=== PATIENT | male | born 1960 | race Caucasian/White ===

== ENCOUNTER → 2020-02-12 15:25 | Outpatient (BNVA) | payer BC, SELFPAY | PROVIDERS: Visit Provider Dermatology | DX: D48.9 Neoplasm of uncertain behavior, unspecified (principal) | CPT/HCPCS: 88304 ==

== ENCOUNTER 2020-03-19 08:25 | Outpatient (CLI) | payer BC, SELFPAY ==
--- NOTE | 2020-03-19 08:45 | USCV_ITS ---
Costa Trujillo Age: 59 Gender: M : 1960 Exam Date: 03/19/2020 08:54 Ordering Phys: Robert Atkinson M.D ([email or web address]) Technologist: Kathy Watts [place] [facility] [place]: STENOSIS Risk Factors: Previous Vascular Surgery: Right Brachial BP: / Left Brachial BP: / Right Left Velocity (cm/s) Spectral Plaque Velocity (cm/s) Spectral Plaque Syst/Diast Broadening Syst/Diast Broadening 78.30/ 17.60 Prox CCA 38.70 / 11.50 81.60/ 22.10 Mid CCA 59.20 / 21.10 66.80/ 15.50 Distal CCA 46.50 / 16.30 25.40/ 10.90 Prox ICA 29.60 / 12.10 49.50/ 20.50 Mid ICA 37.50 / 13.90 55.00/ 23.00 Distal ICA 70.30 / 30.90 91.80 ECA 64.70 0.67 ICA/CCA 1.19 Antegrade Vertebral Antegrade 31.40/ 10.90 cm/s 33.90/ 13.30 cm/s Tri Subclavian Tri 62.80 89.00 CONCLUSIONS Right ICA stenosis <50%. Left ICA stenosis <50%. Normal antegrade Doppler flow noted in the right vertebral artery. Normal antegrade Doppler flow noted in the left vertebral artery. Benigno Ramirez MD (Electronically Signed) Final Date: 19 March 2020 16:49 S
== END 2020-03-19 08:26 | disposition home or self-care (01) ==
LOC: US 08:31
PROVIDERS: Visit Provider Internal Medicine
DX: I65.23 Occlusion and stenosis of bilateral carotid arteries (principal)
CPT/HCPCS: 93880

== ENCOUNTER → 2020-04-29 14:42 | Outpatient (BNVA) | payer OTHER, SELFPAY | PROVIDERS: Visit Provider Family Medicine | DX: I10 Essential (primary) hypertension (principal); R35.1 Nocturia | CPT/HCPCS: 80053; 80061; 82043; 84153; 85025 ==

== ENCOUNTER 2020-08-27 23:06 | Emergency (ER) | payer OTHER, SELFPAY ==
[2020-08-27 23:09] VITALS: BP 157/103; PULSE 67; RESP 18; TEMP 36.6; O2SAT 97; BMI 42.0
--- NOTE | 2020-08-27 23:20 | XRR_ITS ---
PROCEDURE INFORMATION: Exam: XR Chest Exam date and time: 08/27/2020 11:30 PM Age: 60 years old Clinical indication: Chest pain; Additional info: Cp, left arm numbness, increased blood pressure TECHNIQUE: Imaging protocol: XR of the chest. Views: 1 view. COMPARISON: CR Chest 1 [place] [id number] 02/14/2019 9:28 PM FINDINGS: Lungs: Unremarkable. No consolidation. Pleural spaces: Unremarkable. No pleural effusion. No pneumothorax. Heart/Mediastinum: Unremarkable. No cardiomegaly. Bones/joints: Unremarkable. XR/XR chest 1V portable [id number] IMPRESSION: No acute findings.
--- NOTE | 2020-08-27 23:20 | ECG_ITS ---
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 Measurements Intervals [place] Rate: 67 P: 32 MT: 193 QRS: -34 QRSD: 129 T: -30 QT: 423 QTc: 447 Interpretive Statements SINUS RHYTHM LEFT AXIS DEVIATION [QRS AXIS < -30] POSSIBLE RIGHT VENTRICULAR CONDUCTION DELAY [RSR (QR) IN V1/V2] LEFT VENTRICULAR HYPERTROPHY AND ST-T CHANGE POSSIBLE ANTEROSEPTAL MYOCARDIAL INFARCTION , OF INDETERMINATE AGE Compared to ECG 02/15/2019 03:51:36 Left-axis deviation now present Left ventricular hypertrophy now present ST (T wave) deviation now present Ventricular premature complex(es) no longer present Left anterior fascicular block no longer present Myocardial infarct finding still present Electronically Signed On 08-28-2020 18:23:43 CDT by Dotty Lima M.D. [id number] leah
[2020-08-27 23:33] VITALS: BP 152/97; PULSE 71; RESP 18; O2SAT 97
--- NOTE | 2020-08-27 23:34 | ED_ITS ---
HPI - Chest Pain General: Chief Complaint: Chest Pain Stated Complaint: HTN, L ARM NUMB Time Seen by Provider: 08/27/20 23:16 Source: patient Mode of arrival: ambulatory Limitations: no limitations History of Present Illness: HPI narrative: 60-year-old male has a history of high blood pressure along with history of stents years ago. 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 He is post return to his advisor to command in combat tomorrow and have a heart monitor placed and is going to be set up for a stress test. He states that tonight at 9:00 he had a very short episode of chest pain in his left chest that lasted just for seconds. He states it was sharp. He states he had some numbness to his left arm and high blood pressure since then. He denies any chest pain currently. Denies any worsening improving factors. Denies any shortness of breath. Associated symptoms: Deny abdominal pain, dyspnea, fever(s), nausea or vomiting Review of Systems Const: Denies: fever(s), chills, body aches or change in appetite Eyes: Denies: blurry vision or eye discomfort ENMT: Denies: throat pain or dental pain Card: Reports: chest pain Resp: Denies: dyspnea GI: Denies: abdominal pain, nausea, vomiting or diarrhea : Denies: dysuria Musc: Denies: neck pain or back pain Skin/Breast: Denies: rash Neuro: Denies: headache(s) Psych: Denies: depression Gerardo/Lymph: Denies: easy bruising All/Imm: Denies: urticaria PFS ED PFSH: Medical History (Updated 08/28/20 @ 01:55 by Cynthia Esposito MD) ASHD (arteriosclerotic heart disease) HTN (hypertension) Myocardial infarction Obesity JORGE ALBERTO (obstructive sleep apnea) TIA (transient ischemic attack) Surgical History (Updated 04/29/20 @ 14:21 by Ronna Lopes DO) S/P PTCA (percutaneous transluminal coronary angioplasty) 2018 Family History Father Stroke Brother CAD (coronary artery disease) Social History Smoking and tobacco status: never smoked Alcohol intake: never Physical Exam Const: COMMON NORMALS: no acute distress, patient oriented x3 and healthy appearing HENMT: COMMON NORMALS: normocephalic and atraumatic HEAD & SCALP: normocephalic and atraumatic Eye: COMMON NORMALS: Equal, round and reactive pupils present and EOMs intact bilaterally PUPIL: Yes Equal, round and reactive pupils present Neck/C-Spine: COMMON NORMALS: full ROM and supple Chest: COMMONS NORMALS: normal inspection of the chest and normal palpation of entire chest wall Resp: COMMON NORMALS: normal respiratory effort, No retractions, No use of accessory muscles and clear to auscultation bilaterally AUSCULTATION: clear to auscultation bilaterally Cardio: COMMON NORMALS: regular rate, regular rhythm and No murmurs present (Cardio) RATE: regular rate RHYTHM: regular rhythm GI: COMMON NORMALS: Normal to inspection, nondistended, normoactive bowel sounds present, Soft to palpation, non-tender and no masses PALPATION: Yes Soft to palpation Extremity: COMMON NORMALS: normal to inspection and full ROM Neuro: COMMON NORMALS: patient oriented x3, moves all extremities and no focal motor deficits Psych: COMMON NORMALS: mental status grossly normal, Normal thought process present and cooperative THOUGHT PROCESS: Normal thought process present Skin: COMMON NORMALS: no rashes or lesions noted and no wounds GENERAL SKIN EXAM: no rashes or lesions noted Course Vital Signs: Vital signs: Vital Signs Temperature 97.8 F 08/27/20 23:09 Pulse Rate 70 08/27/20 23:53 Respiratory Rate 13 08/27/20 23:53 Blood Pressure 122/87 08/27/20 23:53 Pulse Oximetry 96 08/27/20 23:53 MDM - Chest Pain MDM Narrative: Medical decision making narrative: Patient presents with chest pain is atypical in nature patient's initial repeat troponins here are negative. EKG shows no acute changes. Patient is to follow-up with the right him in the morning to get his heart monitor as scheduled. He is stable for discharge and return if worsening. He has no signs of acute coronary syndrome or pulmonary [place]. Lab Data: Labs: Lab Results 08/27/20 08/27/20 08/27/20 Range/Units 23:32 23:32 23:32 WBC 8.1 (4.0-10.0) 10^3/ uL RBC 5.79 H (4.1-5.3) 10^6/u L Hgb 16.5 (11.7-16.6) g/dL Hct 51.0 (42.0-52.0) % MCV 88.1 (80-94) fL MCH 28.5 (28.0-34.0) pg MCHC 32.4 (30.0-36.0) g/dL RDW 12.7 (12.1-15.1) % Plt Count 171 (130-400) 10^3/c mm MPV 11.5 H (7.4-10.4) fL Neut % (Auto) 65.6 % Lymph % (Auto) 20.4 % [place] % (Auto) 7.7 % Eos % (Auto) 5.3 % Baso % (Auto) 0.9 % Neut # (Auto) 5.29 (1.8-7.7) 10^3/u L Lymph # (Auto) 1.7 (0.8-4.8) 10^3/u L [place] # (Auto) 0.6 (0.2-0.9) 10^3/u L Eos # (Auto) 0.4 (0.0-0.8) 10^3/u L Baso # (Auto) 0.1 (0.0-0.1) 10^3/u L Nucleated RBC % (a uto) 0 % Nucleated RBCs # 0.0 /100WBC PT 12.60 (12.1-14.9) SECO NDS INR 0.92 (0.8-1.2) Sodium 137 (136-145) mmol/L Potassium 4.4 (3.5-5.1) mmol/L Chloride 106 (98-107) mmol/L Carbon Dioxide 20 L (22-29) mmol/L Anion Gap 15.4 (5-19) BUN 13 (6-20) mg/dL Creatinine 0.8 (0.7-1.2) mg/dL GFR Calculation 99.3 (90-130) mL/min Glucose 103 (65-115) mg/dL Calculated Osmolal ity 284 L (285-295) mOsm/k g Calcium 8.5 (8.5-10.5) mg/dL Total Bilirubin 0.4 (0.15-1.2) mg/dL AST 20 (0-40) U/L ALT 18 (0-41) U/L Alkaline Phosphata se 83 (40-130) IU/L Troponin T Baselin e (0-15) ng/L Troponin T 120 Min tolowa dee-ni' (0-15) ng/L Total Protein 5.9 L (6.6-8.7) g/dL Albumin 4.4 (3.5-5.2) g/dL Globulin 1.5 (1.3-4.6) g/dL 08/27/20 08/28/20 Range/Units 23:32 01:25 WBC (4.0-10.0) 10^3/ uL RBC (4.1-5.3) 10^6/u L Hgb (11.7-16.6) g/dL Hct (42.0-52.0) % MCV (80-94) fL MCH (28.0-34.0) pg MCHC (30.0-36.0) g/dL RDW (12.1-15.1) % Plt Count (130-400) 10^3/c mm MPV (7.4-10.4) fL Neut % (Auto) % Lymph % (Auto) % [place] % (Auto) % Eos % (Auto) % Baso % (Auto) % Neut # (Auto) (1.8-7.7) 10^3/u L Lymph # (Auto) (0.8-4.8) 10^3/u L [place] # (Auto) (0.2-0.9) 10^3/u L Eos # (Auto) (0.0-0.8) 10^3/u L Baso # (Auto) (0.0-0.1) 10^3/u L Nucleated RBC % (a uto) % Nucleated RBCs # /100WBC PT (12.1-14.9) SECO NDS INR (0.8-1.2) Sodium (136-145) mmol/L Potassium (3.5-5.1) mmol/L Chloride (98-107) mmol/L Carbon Dioxide (22-29) mmol/L Anion Gap (5-19) BUN (6-20) mg/dL Creatinine (0.7-1.2) mg/dL GFR Calculation (90-130) mL/min Glucose (65-115) mg/dL Calculated Osmolal ity (285-295) mOsm/k g Calcium (8.5-10.5) mg/dL Total Bilirubin (0.15-1.2) mg/dL AST (0-40) U/L ALT (0-41) U/L Alkaline Phosphata se (40-130) IU/L Troponin T Baselin e 14 (0-15) ng/L Troponin T 120 Min tolowa dee-ni' 13.58 (0-15) ng/L Total Protein (6.6-8.7) g/dL Albumin (3.5-5.2) g/dL Globulin (1.3-4.6) g/dL Imaging Data^: CXR: Attestation: I personally reviewed and interpreted this imaging study as follows: Radiologist's impression: [address] [address] XRay Report Signed Patient: Costa Trujillo Unit #: [id number] : 1960 Age/Sex: 60 / M ADM Date: 08/27/20 Loc: ER Room/Bed: Attending Dr: Ordering Provider/Ordering MD: Cynthia Esposito MD Date of Service: 08/27/20 Procedure(s): XR chest 1V portable [id number] Accession Number(s): [id number] Report Number: [id number] PROCEDURE INFORMATION: Exam: XR Chest Exam date and time: 08/27/2020 11:30 PM Age: 60 years old Clinical indication: Chest pain; Additional info: Cp, left arm numbness, increased blood pressure TECHNIQUE: Imaging protocol: XR of the chest. Views: 1 view. COMPARISON: CR Chest 1 [place] [id number] 02/14/2019 9:28 PM FINDINGS: Lungs: Unremarkable. No consolidation. Pleural spaces: Unremarkable. No pleural effusion. No pneumothorax. Heart/Mediastinum: Unremarkable. No cardiomegaly. Bones/joints: Unremarkable. XR/XR chest 1V portable [id number] IMPRESSION: No acute findings. EKG Data^: EKG 1: Attestation: I personally reviewed and interpreted this EKG as follows: EKG interpretation date: 08/27/20 EKG interpretation time: 23:29 Interpretation: nsr hr [address] or twave abnormalities lad qrs 129 qtc 438 EKG 2: Attestation: I personally reviewed and interpreted this EKG as follows: EKG interpretation date: 08/28/20 EKG interpretation time: 01:40 Interpretation: sinus pepe hr [address] or t wave abnormalities qrs 136 qtc 442 Discharge Plan Discharge Patient Disposition: Home Clinical Impression: Chest pain Qualifiers: Chest pain type: unspecified Qualified Code(s): R07.9 - Chest pain, unspecified Condition: Stable Prescriptions: No Action omega-3 fatty acids [Fish Oil Concentrate] 1,000 mg capsule 1,000 mg PO DAILY RF: 0 lisinopril 10 mg tablet 10 mg PO DAILY 90 Days Qty: 1 RF: 3 nitroglycerin 0.4 mg tablet, sublingual 0.4 mg SUBLINGUAL Q5M PRN (Reason: chest pain) Qty: 25 RF: 3 mupirocin 2 % ointment 1 applic topical BID Qty: 22 RF: 0 aspirin 81 mg tablet,delayed release (DR/EC) 81 mg PO DAILY Qty: 90 RF: 3 clopidogrel 75 mg tablet 75 mg PO DAILY 90 Days Qty: 90 RF: 3 metoprolol tartrate 25 mg tablet 12.5 mg PO BID Qty: 90 RF: 3 simvastatin 20 mg tablet 20 mg PO DAILY 90 Days Qty: 90 RF: 3 Discharge Orders: Discharge ED (Routine); Ordered 08/28/20 Ordered By: Cynthia Esposito Referrals: Ronna Lopes DO [Primary Care Provider] - 1-3 days Discharge Diet: Advance as tolerated Discharge Activity: Resume usual activity Patient Instructions: Chest Pain (ED) Coding Level of Care Code ED Lumber Piler for Chg Fwd Exam Comprehensive
[2020-08-27 23:39] LABS: Basophils # 0.1 10^3/uL (0.0-0.1); Basophils % 0.9 %; Eosinophils # 0.4 10^3/uL (0.0-0.8); Eosinophils % 5.3 %; Hemoglobin 16.5 g/dL (11.7-16.6); Lymphocytes # 1.7 10^3/uL (0.8-4.8); Lymphocytes % 20.4 %; Mean Corpuscular HGB Conc 32.4 g/dL (30.0-36.0); Mean Corpuscular Hemoglobin 28.5 pg (28.0-34.0); Mean Corpuscular Volume 88.1 fL (80-94); Mean Platelet Volume 11.5 fL (7.4-10.4); Monocytes # 0.6 10^3/uL (0.2-0.9); Monocytes % 7.7 %; Neutrophils # 5.29 10^3/uL (1.8-7.7); Neutrophils % 65.6 %; Nucleated Red Blood Cells % 0 %; Platelet Count 171 10^3/cmm (130-400); Red Blood Count 5.79 10^6/uL (4.1-5.3); Red Cell Distribution Width 12.7 % (12.1-15.1); White Blood Count 8.1 10^3/uL (4.0-10.0)
[2020-08-27] MEDS: aspirin 81 mg Chew Tablet 324 MG PO (23:46)
[2020-08-27] MEDS: nitroglycerin 0.4 mg sublingual Tablet SUBLINGUAL (23:47)
[2020-08-27 23:48] VITALS: BP 141/93; PULSE 65; RESP 18; O2SAT 97
--- NOTE | 2020-08-27 23:49 | PC.NURSE ---
Chest pain 2/10 Per physician - give 1 dose nitro 141/93 HR 67
[2020-08-27 23:50] LABS: INR 0.92 (0.8-1.2)
--- NOTE | 2020-08-27 23:50 | PC.NURSE ---
After nitro - chest pain dropped to 0 from 2 on 0/10 scale. Pt states chest hurts now when he pushes on it. Per report, pt has cardiology appt tomorrow for monitor worker. Pt states his heart rate has been dropping into 30's per his home monitor.
[2020-08-27 23:53] VITALS: BP 122/87; PULSE 70; RESP 13; O2SAT 96
[2020-08-27 23:57] LABS: Troponin(5th) Baseline 14 ng/L (0-15)
[2020-08-28 00:01] LABS: Alanine Aminotransferase 18 U/L (0-41); Albumin Level 4.4 g/dL (3.5-5.2); Alkaline Phosphatase 83 IU/L (40-130); Blood Urea Nitrogen 13 mg/dL (6-20); Calcium 8.5 mg/dL (8.5-10.5); Carbon Dioxide 20 mmol/L (22-29); Chloride 106 mmol/L (98-107); Globulin 1.5 g/dL (1.3-4.6); Glomerular Filtration Rate 99.3 mL/min (90-130); Glucose 103 mg/dL (65-115); Osmolality Calculated 284 mOsm/kg (285-295); Sodium 137 mmol/L (136-145); Total Bilirubin 0.4 mg/dL (0.15-1.2); Total Protein 5.9 g/dL (6.6-8.7)
[2020-08-28 00:08] LABS: Anion Gap 15.4 (5-19); Aspartate Amino Transferase 20 U/L (0-40); Potassium 4.4 mmol/L (3.5-5.1)
--- NOTE | 2020-08-28 01:20 | ECG_ITS ---
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 Measurements Intervals [place] Rate: 57 P: 33 MS: 213 QRS: -30 QRSD: 136 T: -47 QT: 447 QTc: 438 Interpretive Statements SINUS BRADYCARDIA WITH FIRST DEGREE AV BLOCK INTRAVENTRICULAR CONDUCTION DELAY [130+ ms QRS DURATION] POSSIBLE ANTEROSEPTAL MYOCARDIAL INFARCTION , OF INDETERMINATE AGE [30 ms Q WAVE IN V1-V4] Compared to ECG 08/27/2020 23:29:55 First degree AV block now present Intraventricular conduction delay now present Sinus rhythm no longer present Left-axis deviation no longer present Left ventricular hypertrophy no longer present ST (T wave) deviation no longer present Myocardial infarct finding still present Electronically Signed On 08-28-2020 18:27:31 CDT by Dotty Lima M.D. [id number] f
[2020-08-28 01:51] LABS: Troponin 5 2HR 13.58 ng/L (0-15)
[2020-08-28 02:00] LABS: Troponin 5 2HR Delta -0.42 ABS# (0-10)
[2020-08-28 02:02] VITALS: BP 134/90; PULSE 60; RESP 18; TEMP 37; O2SAT 98
== END 2020-08-28 02:04 | disposition home or self-care (01) ==
PROVIDERS: Emergency Provider Emergency Medicine; PCP Family Medicine
DX: R07.9 Chest pain, unspecified (principal); Z79.82 Long term (current) use of aspirin; Z79.02 Long term (current) use of antithrombotics/antiplatelets; I10 Essential (primary) hypertension; I25.2 Old myocardial infarction; Z86.73 Personal history of transient ischemic attack (TIA), and cerebral infarction without residual deficits
CPT/HCPCS: 36415; 71045; 80053; 84484; 85025; 85610; 93005; 99284

== ENCOUNTER 2020-08-28 04:37 | Emergency (ER) | payer OTHER, SELFPAY ==
[2020-08-28 04:41] VITALS: BP 165/109; PULSE 69; RESP 18; TEMP 36.8; O2SAT 96; BMI 42.0
[2020-08-28 04:45] VITALS: BP 169/100; PULSE 62; RESP 17; O2SAT 96
--- NOTE | 2020-08-28 04:45 | ECG_ITS ---
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 Measurements Intervals [place] Rate: 67 P: 13 MO: 196 QRS: -34 QRSD: 132 T: -18 QT: 422 QTc: 448 Interpretive Statements SINUS RHYTHM LEFT AXIS DEVIATION [QRS AXIS < -30] INTRAVENTRICULAR CONDUCTION DELAY [130+ ms QRS DURATION] LEFT VENTRICULAR HYPERTROPHY AND ST-T CHANGE POSSIBLE ANTEROSEPTAL MYOCARDIAL INFARCTION , OF INDETERMINATE AGE Compared to ECG 08/28/2020 01:40:53 Left-axis deviation now present Left ventricular hypertrophy now present ST (T wave) deviation now present Sinus bradycardia no longer present First degree AV block no longer present Myocardial infarct finding still present Electronically Signed On 08-28-2020 18:23:15 CDT by Dotty Lima M.D. [id number] leah
--- NOTE | 2020-08-28 04:49 | W.ED.GENADLT ---
HPI - General Adult General: Chief complaint: General Medical Stated complaint: high bp/seen earlier tonight Time Seen by Provider: 08/28/20 04:44 Source: patient Mode of arrival: ambulatory Limitations: no limitations History of Present Illness: HPI narrative: 60-year-old male who was seen here earlier tonight. He had seen earlier for chest pain. He also has a history of hypertension. He states he had high blood pressure at his office visit yesterday and was hypertensive here. He states he went home his hypertension did not improve. States that he felt slightly shaky. Denies any more chest pain. Denies any headache. Denies any weakness. Associated symptoms: Deny chest pain, dyspnea, headache(s), nausea, rash or vomiting Review of Systems Const: Denies: fever(s), chills, body aches or change in appetite Eyes: Denies: blurry vision or eye discomfort ENMT: Denies: throat pain or dental pain Card: Denies: chest pain Resp: Denies: dyspnea GI: Denies: abdominal pain, nausea, vomiting or diarrhea : Denies: dysuria Musc: Denies: neck pain or back pain Skin/Breast: Denies: rash Neuro: Denies: headache(s) Psych: Denies: depression Gerardo/Lymph: Denies: easy bruising All/Imm: Denies: urticaria PFSH ED PFSH: Medical History (Updated 08/28/20 @ 05:34 by Cynthia Esposito MD) ASHD (arteriosclerotic heart disease) HTN (hypertension) Myocardial infarction Obesity JORGE ALBERTO (obstructive sleep apnea) TIA (transient ischemic attack) Surgical History (Updated 04/29/20 @ 14:21 by Ronna Lopes DO) S/P PTCA (percutaneous transluminal coronary angioplasty) 2018 Family History Father Stroke Brother CAD (coronary artery disease) Social History Smoking and tobacco status: never smoked Alcohol intake: never Physical Exam Const: COMMON NORMALS: no acute distress, patient oriented x3 and healthy appearing HENMT: COMMON NORMALS: normocephalic and atraumatic HEAD & SCALP: normocephalic and atraumatic Eye: COMMON NORMALS: Equal, round and reactive pupils present and EOMs intact bilaterally PUPIL: Yes Equal, round and reactive pupils present Neck/C-Spine: COMMON NORMALS: full ROM and supple Chest: COMMONS NORMALS: normal inspection of the chest and normal palpation of entire chest wall Resp: COMMON NORMALS: normal respiratory effort, No retractions, No use of accessory muscles and clear to auscultation bilaterally AUSCULTATION: clear to auscultation bilaterally Cardio: COMMON NORMALS: regular rate, regular rhythm and No murmurs present (Cardio) RATE: regular rate RHYTHM: regular rhythm GI: COMMON NORMALS: Normal to inspection, nondistended, normoactive bowel sounds present, Soft to palpation, non-tender and no masses PALPATION: Yes Soft to palpation Extremity: COMMON NORMALS: normal to inspection and full ROM Neuro: COMMON NORMALS: patient oriented x3, moves all extremities and no focal motor deficits Psych: COMMON NORMALS: mental status grossly normal, Normal thought process present and cooperative THOUGHT PROCESS: Normal thought process present Skin: COMMON NORMALS: no rashes or lesions noted and no wounds GENERAL SKIN EXAM: no rashes or lesions noted Course Vital Signs: Vital signs: Vital Signs Temperature 98.2 F 08/28/20 04:41 Pulse Rate 68 08/28/20 05:29 Respiratory Rate 22 H 08/28/20 05:29 Blood Pressure 193/130 08/28/20 05:29 Pulse Oximetry 96 08/28/20 05:29 MDM - General Adult MDM Narrative: Medical decision making narrative: Patient presents with hypertension likely due to his recent medication adjustments. He had his metoprolol decreased to 12.5. We will increase his lisinopril up to 20 mg daily. His blood pressure here is normal. Lab work here is all normal. He feels improved. Lab Data: Labs: Lab Results 08/28/20 08/28/20 08/28/20 Range/Units 04:50 04:50 04:50 WBC 7.1 (4.0-10.0) 10^3/ uL RBC 5.76 H (4.1-5.3) 10^6/u L Hgb 16.7 H (11.7-16.6) g/dL Hct 50.0 (42.0-52.0) % MCV 86.8 (80-94) fL MCH 29.0 (28.0-34.0) pg MCHC 33.4 (30.0-36.0) g/dL RDW 12.7 (12.1-15.1) % Plt Count 170 (130-400) 10^3/c mm MPV 11.5 H (7.4-10.4) fL Neut % (Auto) 65.8 % Lymph % (Auto) 19.9 % [place] % (Auto) 8.3 % Eos % (Auto) 4.9 % Baso % (Auto) 0.8 % Neut # (Auto) 4.65 (1.8-7.7) 10^3/u L Lymph # (Auto) 1.4 (0.8-4.8) 10^3/u L [place] # (Auto) 0.6 (0.2-0.9) 10^3/u L Eos # (Auto) 0.4 (0.0-0.8) 10^3/u L Baso # (Auto) 0.1 (0.0-0.1) 10^3/u L Nucleated RBC % (a uto) 0 % Nucleated RBCs # 0.0 /100WBC Sodium 139 (136-145) mmol/L Potassium 4.0 (3.5-5.1) mmol/L Chloride 108 H (98-107) mmol/L Carbon Dioxide 21 L (22-29) mmol/L Anion Gap 14.0 (5-19) BUN 11 (6-20) mg/dL Creatinine 0.8 (0.7-1.2) mg/dL GFR Calculation 99.3 (90-130) mL/min Glucose 104 (65-115) mg/dL Calculated Osmolal ity 288 (285-295) mOsm/k g Calcium 8.3 L (8.5-10.5) mg/dL Total Bilirubin 0.6 (0.15-1.2) mg/dL AST 18 (0-40) U/L ALT 18 (0-41) U/L Alkaline Phosphata se 77 (40-130) IU/L Troponin T Baselin e 17 H (0-15) ng/L Total Protein 5.7 L (6.6-8.7) g/dL Albumin 4.2 (3.5-5.2) g/dL Globulin 1.5 (1.3-4.6) g/dL EKG Data^: EKG 1: Attestation: I personally reviewed and interpreted this EKG as follows: EKG interpretation date: 08/28/20 EKG interpretation time: 04:53 Interpretation: nsr hr [address] or t wave abnormalities qrs 132 qtc 438 Discharge Plan Discharge Patient Disposition: Home Clinical Impression: HTN (hypertension) Condition: Stable Prescriptions: Changed lisinopril 10 mg tablet 20 mg PO DAILY 90 Days Qty: 1 RF: 3 No Action omega-3 fatty acids [Fish Oil Concentrate] 1,000 mg capsule 1,000 mg PO DAILY RF: 0 nitroglycerin 0.4 mg tablet, sublingual 0.4 mg SUBLINGUAL Q5M PRN (Reason: chest pain) Qty: 25 RF: 3 mupirocin 2 % ointment 1 applic topical BID Qty: 22 RF: 0 aspirin 81 mg tablet,delayed release (DR/EC) 81 mg PO DAILY Qty: 90 RF: 3 clopidogrel 75 mg tablet 75 mg PO DAILY 90 Days Qty: 90 RF: 3 metoprolol tartrate 25 mg tablet 12.5 mg PO BID Qty: 90 RF: 3 simvastatin 20 mg tablet 20 mg PO DAILY 90 Days Qty: 90 RF: 3 Discharge Orders: Discharge ED (Routine); Ordered 08/28/20 Ordered By: Cynthia Esposito Referrals: Ronna Lopes DO [Primary Care Provider] - Discharge Diet: Advance as tolerated Discharge Activity: Resume usual activity Patient Instructions: Hypertension (ED) Coding Level of Care Code ED Supervisor Frame Sample And Pattern for Chg Fwd Exam Comprehensive
[2020-08-28 04:51] VITALS: BP 188/109
[2020-08-28] MEDS: cloNIDine 0.1 mg Tablet PO (04:51)
[2020-08-28 05:02] LABS: Basophils # 0.1 10^3/uL (0.0-0.1); Basophils % 0.8 %; Eosinophils # 0.4 10^3/uL (0.0-0.8); Eosinophils % 4.9 %; Hemoglobin 16.7 g/dL (11.7-16.6); Lymphocytes # 1.4 10^3/uL (0.8-4.8); Lymphocytes % 19.9 %; Mean Corpuscular HGB Conc 33.4 g/dL (30.0-36.0); Mean Corpuscular Volume 86.8 fL (80-94); Mean Platelet Volume 11.5 fL (7.4-10.4); Monocytes # 0.6 10^3/uL (0.2-0.9); Monocytes % 8.3 %; Neutrophils # 4.65 10^3/uL (1.8-7.7); Neutrophils % 65.8 %; Nucleated Red Blood Cells % 0 %; Platelet Count 170 10^3/cmm (130-400); Red Blood Count 5.76 10^6/uL (4.1-5.3); Red Cell Distribution Width 12.7 % (12.1-15.1); White Blood Count 7.1 10^3/uL (4.0-10.0)
[2020-08-28 05:18] LABS: Alanine Aminotransferase 18 U/L (0-41); Albumin Level 4.2 g/dL (3.5-5.2); Alkaline Phosphatase 77 IU/L (40-130); Aspartate Amino Transferase 18 U/L (0-40); Blood Urea Nitrogen 11 mg/dL (6-20); Calcium 8.3 mg/dL (8.5-10.5); Carbon Dioxide 21 mmol/L (22-29); Chloride 108 mmol/L (98-107); Globulin 1.5 g/dL (1.3-4.6); Glomerular Filtration Rate 99.3 mL/min (90-130); Glucose 104 mg/dL (65-115); Osmolality Calculated 288 mOsm/kg (285-295); Sodium 139 mmol/L (136-145); Total Bilirubin 0.6 mg/dL (0.15-1.2); Total Protein 5.7 g/dL (6.6-8.7)
[2020-08-28 05:19] LABS: Troponin(5th) Baseline 17 ng/L (0-15)
[2020-08-28] MEDS: lisinopril 10 mg Tablet 20 MG PO (05:19)
[2020-08-28] MEDS: labetalol 5 mg/mL SDV 20mL 10 MG IVP (05:28)
[2020-08-28 05:29] VITALS: BP 193/130; PULSE 68; RESP 22; O2SAT 96
[2020-08-28 05:43] VITALS: BP 127/76; PULSE 64; RESP 12; TEMP 36.8; O2SAT 97
== END 2020-08-28 05:43 | disposition home or self-care (01) ==
PROVIDERS: Emergency Provider Emergency Medicine; PCP Family Medicine
DX: I10 Essential (primary) hypertension (principal); Z79.82 Long term (current) use of aspirin; Z79.02 Long term (current) use of antithrombotics/antiplatelets; I25.2 Old myocardial infarction; Z86.73 Personal history of transient ischemic attack (TIA), and cerebral infarction without residual deficits
CPT/HCPCS: 80053; 84484; 85025; 93005; 96374; 99284; J3490

== ENCOUNTER 2020-09-06 20:13 | Emergency (ER) | payer OTHER, SELFPAY ==
[2020-09-06 20:17] VITALS: BP 156/97; PULSE 106; RESP 19; TEMP 36.6; O2SAT 95; BMI 40.5
--- NOTE | 2020-09-06 20:29 | ECG_ITS ---
[facility] Test Date: 2020-09-06 Pat Name: Costa Trujillo Department: Room: Gender: Male Dental Internship: : 1960 Requested By: Cynthia Esposito Order Number: [id number] Josette MD: Robert Atkinson M.D. Measurements Intervals [place] Rate: 82 P: 40 DC: 187 QRS: -44 QRSD: 141 T: 17 QT: 384 QTc: 449 Interpretive Statements SINUS RHYTHM LEFT AXIS DEVIATION [QRS AXIS < -30] INTRAVENTRICULAR CONDUCTION DELAY [130+ ms QRS DURATION] Compared to ECG 08/28/2020 04:53:04 Left ventricular hypertrophy no longer present ST (T wave) deviation no longer present Myocardial infarct finding no longer present Electronically Signed On 09-07-2020 16:49:07 CDT by Robert Atkinson M.D. [id number]
--- NOTE | 2020-09-06 20:29 | XRR_ITS ---
PROCEDURE INFORMATION: Exam: XR Chest Exam date and time: 09/06/2020 9:07 PM Age: 60 years old Clinical indication: Pain; Chest pressure; Prior surgery; Surgery date: 6+ months; Surgery type: Stent; Additional info: Cp TECHNIQUE: Imaging protocol: XR of the chest. Views: 1 view. COMPARISON: CR (CHEST, ) 08/27/2020 11:27 PM FINDINGS: Lungs: Unremarkable. No consolidation. Pleural spaces: Unremarkable. No pleural effusion. No pneumothorax. Heart/Mediastinum: Unremarkable. No cardiomegaly. Bones/joints: Unremarkable. XR/XR chest 1V portable [id number] IMPRESSION: No acute findings.
--- NOTE | 2020-09-06 21:14 | CTR_ITS ---
PROCEDURE INFORMATION: Exam: CT Head Without Contrast Exam date and time: 09/06/2020 9:15 PM Age: 60 years old Clinical indication: Syncope and collapse; Additional info: Near syncope TECHNIQUE: Imaging protocol: Computed tomography of the head without contrast. Radiation optimization: All CT scans at this facility use at least one of these dose optimization techniques: automated exposure control; mA and/or kV adjustment per patient size (includes targeted exams where dose is matched to clinical indication); or iterative reconstruction. COMPARISON: CT head wo con* [id number] 06/07/2017 9:37 PM RADIATION DOSE METRICS: Total DLP (mGy-cm): 880.71 FINDINGS: Brain: Normal. No hemorrhage. Unremarkable white matter. No mass effect. Cerebral ventricles: No ventriculomegaly. Bones/joints: Unremarkable. No acute fracture. Paranasal sinuses: Visualized sinuses are unremarkable. No fluid levels. Mastoid air cells: Visualized mastoid air cells are well aerated. Soft tissues: Unremarkable. CT/CT head wo con* [id number] IMPRESSION: No acute intracranial abnormality. Radiation Dose CTDIVOL = (mGy): DLP = 880.71 (mGy-cm)
--- NOTE | 2020-09-06 21:25 | W.ED.CHESTPA ---
HPI - Chest Pain General: Chief Complaint: Chest Pain Stated Complaint: high bp Time Seen by Provider: 09/06/20 21:05 Source: patient Mode of arrival: ambulatory Limitations: no limitations History of Present Illness: HPI narrative: 60-year-old male states that he has been having chest pain over the last day along with some TIA-like symptoms. He states he felt near syncopal and was having some numbness. He states he has been having blood pressure issues over the last week to 2 weeks. Patient was seen last week for same. He states that he was on 12.5 metoprolol and increased it to 25 yesterday. He states his blood pressures been running high today but is been normal here. He states his symptoms all resolved Associated symptoms: Deny abdominal pain, dyspnea, fever(s), nausea or vomiting Review of Systems Const: Denies: fever(s), chills, body aches or change in appetite Eyes: Denies: blurry vision or eye discomfort ENMT: Denies: throat pain or dental pain Card: Denies: chest pain Resp: Denies: dyspnea GI: Denies: abdominal pain, nausea, vomiting or diarrhea : Denies: dysuria Musc: Denies: neck pain or back pain Skin/Breast: Denies: rash Neuro: Denies: headache(s) Psych: Denies: depression Gerardo/Lymph: Denies: easy bruising All/Imm: Denies: urticaria PFSH ED PFSH: Medical History ASHD (arteriosclerotic heart disease) HTN (hypertension) Myocardial infarction Obesity JORGE ALBERTO (obstructive sleep apnea) TIA (transient ischemic attack) Surgical History S/P PTCA (percutaneous transluminal coronary angioplasty) 2018 Family History Father Stroke Brother CAD (coronary artery disease) Social History Smoking and tobacco status: never smoked Alcohol intake: never Physical Exam Const: COMMON NORMALS: no acute distress, patient oriented x3 and healthy appearing HENMT: COMMON NORMALS: normocephalic and atraumatic HEAD & SCALP: normocephalic and atraumatic Eye: COMMON NORMALS: Equal, round and reactive pupils present and EOMs intact bilaterally PUPIL: Yes Equal, round and reactive pupils present Neck/C-Spine: COMMON NORMALS: full ROM and supple Chest: COMMONS NORMALS: normal inspection of the chest and normal palpation of entire chest wall Resp: COMMON NORMALS: normal respiratory effort, No retractions, No use of accessory muscles and clear to auscultation bilaterally AUSCULTATION: clear to auscultation bilaterally Cardio: COMMON NORMALS: regular rate, regular rhythm and No murmurs present (Cardio) RATE: regular rate RHYTHM: regular rhythm GI: COMMON NORMALS: Normal to inspection, nondistended, normoactive bowel sounds present, Soft to palpation, non-tender and no masses PALPATION: Yes Soft to palpation Extremity: COMMON NORMALS: normal to inspection and full ROM Neuro: COMMON NORMALS: patient oriented x3, moves all extremities and no focal motor deficits Psych: COMMON NORMALS: mental status grossly normal, Normal thought process present and cooperative THOUGHT PROCESS: Normal thought process present Skin: COMMON NORMALS: no rashes or lesions noted and no wounds GENERAL SKIN EXAM: no rashes or lesions noted Course Vital Signs: Vital signs: Vital Signs Temperature 97.8 F 09/06/20 20:17 Pulse Rate 79 09/06/20 23:32 Respiratory Rate 22 H 09/06/20 23:32 Blood Pressure 155/98 09/06/20 23:32 Pulse Oximetry 96 09/06/20 23:32 MDM - Chest Pain MDM Narrative: Medical decision making narrative: Patient presents here with hypertension with some paresthesias. He is well-appearing here and is blood pressures improved here. He has no signs of CVA and his head CT is normal. His troponin and EKG here are normal as well. I will increase his metoprolol from 25 twice daily to 37.5. 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 He is to return if worsening. Lab Data: Labs: Lab Results 09/06/20 09/06/20 09/06/20 Range/Units 22:30 22:30 22:30 WBC 10.1 H (4.0-10.0) 10^3/ uL RBC 5.88 H (4.1-5.3) 10^6/u L Hgb 16.9 H (11.7-16.6) g/dL Hct 50.8 (42.0-52.0) % MCV 86.4 (80-94) fL MCH 28.7 (28.0-34.0) pg MCHC 33.3 (30.0-36.0) g/dL RDW 12.7 (12.1-15.1) % Plt Count 181 (130-400) 10^3/c mm MPV 10.9 H (7.4-10.4) fL Neut % (Auto) 76.4 % Lymph % (Auto) 14.3 % [place] % (Auto) 7.2 % Eos % (Auto) 1.4 % Baso % (Auto) 0.5 % Neut # (Auto) 7.72 H (1.8-7.7) 10^3/u L Lymph # (Auto) 1.5 (0.8-4.8) 10^3/u L [place] # (Auto) 0.7 (0.2-0.9) 10^3/u L Eos # (Auto) 0.1 (0.0-0.8) 10^3/u L Baso # (Auto) 0.1 (0.0-0.1) 10^3/u L Nucleated RBC % (a uto) 0 % Nucleated RBCs # 0.0 /100WBC Sodium 137 (136-145) mmol/L Potassium 3.8 (3.5-5.1) mmol/L Chloride 103 (98-107) mmol/L Carbon Dioxide 20 L (22-29) mmol/L Anion Gap 17.8 (5-19) BUN 10 (6-20) mg/dL Creatinine 0.7 (0.7-1.2) mg/dL GFR Calculation 115.8 (90-130) mL/min Glucose 101 (65-115) mg/dL Calculated Osmolal ity 283 L (285-295) mOsm/k g Calcium 8.4 L (8.5-10.5) mg/dL Total Bilirubin 0.6 (0.15-1.2) mg/dL AST 16 (0-40) U/L ALT 18 (0-41) U/L Alkaline Phosphata se 85 (40-130) IU/L Troponin T Baselin e 14 (0-15) ng/L Total Protein 6.5 L (6.6-8.7) g/dL Albumin 4.3 (3.5-5.2) g/dL Globulin 2.2 (1.3-4.6) g/dL Imaging Data^: CT Head: Radiologist's impression: [place] [address] CT Scan Report Signed Patient: Costa Trujillo Unit #: [id number] : 1960 Age/Sex: 60 / M ADM Date: 09/06/20 Loc: ER Room/Bed: Attending Dr: Ordering Provider/Ordering MD: Cynthia Esposito MD Date of Service: 09/06/20 Procedure(s): CT head wo con* [id number] Accession Number(s): [id number] Report Number: [id number] PROCEDURE INFORMATION: Exam: CT Head Without Contrast Exam date and time: 09/06/2020 9:15 PM Age: 60 years old Clinical indication: Syncope and collapse; Additional info: Near syncope TECHNIQUE: Imaging protocol: Computed tomography of the head without contrast. Radiation optimization: All CT scans at this facility use at least one of these dose optimization techniques: automated exposure control; mA and/or kV adjustment per patient size (includes targeted exams where dose is matched to clinical indication); or iterative reconstruction. COMPARISON: CT head wo con* [id number] 06/07/2017 9:37 PM RADIATION DOSE METRICS: Total DLP (mGy-cm): 880.71 FINDINGS: Brain: Normal. No hemorrhage. Unremarkable white matter. No mass effect. Cerebral ventricles: No ventriculomegaly. Bones/joints: Unremarkable. No acute fracture. Paranasal sinuses: Visualized sinuses are unremarkable. No fluid levels. Mastoid air cells: Visualized mastoid air cells are well aerated. Soft tissues: Unremarkable. CT/CT head wo con* [id number] IMPRESSION: No acute intracranial abnormality. CXR: Radiologist's impression: [facility] [address] [place] [address] XRay Report Signed Patient: Costa Trujillo Unit #: [id number] : 1960 Age/Sex: 60 / M ADM Date: 09/06/20 Loc: ER Room/Bed: Attending Dr: Ordering Provider/Ordering MD: Cynthia Esposito MD Date of Service: 09/06/20 Procedure(s): XR chest 1V portable [id number] Accession Number(s): [id number] Report Number: [id number] PROCEDURE INFORMATION: Exam: XR Chest Exam date and time: 09/06/2020 9:07 PM Age: 60 years old Clinical indication: Pain; Chest pressure; Prior surgery; Surgery date: 6+ months; Surgery type: Stent; Additional info: Cp TECHNIQUE: Imaging protocol: XR of the chest. Views: 1 view. COMPARISON: CR (CHEST, ) 08/27/2020 11:27 PM FINDINGS: Lungs: Unremarkable. No consolidation. Pleural spaces: Unremarkable. No pleural effusion. No pneumothorax. Heart/Mediastinum: Unremarkable. No cardiomegaly. Bones/joints: Unremarkable. XR/XR chest 1V portable [id number] IMPRESSION: No acute findings. EKG Data^: EKG 1: Attestation: I personally reviewed and interpreted this EKG as follows: EKG interpretation date: 09/06/20 EKG interpretation time: 20:28 Interpretation: nsr hr [address] or t wave abnormalities qrs 136 qtc 415 EKG 2: Attestation: I personally reviewed and interpreted this EKG as follows: EKG interpretation date: 09/06/20 EKG interpretation time: 22:52 Interpretation: nsr hr [address] or t wave abnormalities qrs 141 qtc 422 Discharge Plan Discharge Patient Disposition: Home Clinical Impression: HTN (hypertension), Paresthesia Condition: Stable Prescriptions: Changed metoprolol tartrate 25 mg tablet 37.5 mg PO BID Qty: 180 RF: 3 No Action omega-3 fatty acids [Fish Oil Concentrate] 1,000 mg capsule 1,000 mg PO DAILY RF: 0 nitroglycerin 0.4 mg tablet, sublingual 0.4 mg SUBLINGUAL Q5M PRN (Reason: chest pain) Qty: 25 RF: 3 mupirocin 2 % ointment 1 applic topical BID Qty: 22 RF: 0 aspirin 81 mg tablet,delayed release (DR/EC) 81 mg PO DAILY Qty: 90 RF: 3 simvastatin 20 mg tablet 20 mg PO DAILY 90 Days Qty: 90 RF: 3 docusate sodium 1 - 2 tab PO BID PRN (Reason: Constipation) RF: 0 clopidogrel 75 mg tablet 75 mg PO DAILY@2100 RF: 0 lisinopril 10 mg tablet 20 mg PO DAILY@1800 RF: 0 Discharge Orders: Discharge ED (Routine); Ordered 09/06/20 Ordered By: Cynthia Esposito Referrals: Ronna Lopes DO [Primary Care Provider] - 1-3 days Discharge Diet: Advance as tolerated Discharge Activity: Resume usual activity Patient Instructions: Hypertension (ED) Coding Level of Care Code ED Cable Stretcher And Tester for Chg Fwd Exam Comprehensive
[2020-09-06 22:40] VITALS: BP 134/99; PULSE 84; RESP 18; O2SAT 97
[2020-09-06 22:43] LABS: Basophils # 0.1 10^3/uL (0.0-0.1); Basophils % 0.5 %; Eosinophils # 0.1 10^3/uL (0.0-0.8); Eosinophils % 1.4 %; Hematocrit 50.8 % (42.0-52.0); Hemoglobin 16.9 g/dL (11.7-16.6); Lymphocytes # 1.5 10^3/uL (0.8-4.8); Lymphocytes % 14.3 %; Mean Corpuscular HGB Conc 33.3 g/dL (30.0-36.0); Mean Corpuscular Hemoglobin 28.7 pg (28.0-34.0); Mean Corpuscular Volume 86.4 fL (80-94); Mean Platelet Volume 10.9 fL (7.4-10.4); Monocytes # 0.7 10^3/uL (0.2-0.9); Monocytes % 7.2 %; Neutrophils # 7.72 10^3/uL (1.8-7.7); Neutrophils % 76.4 %; Nucleated Red Blood Cells % 0 %; Platelet Count 181 10^3/cmm (130-400); Red Blood Count 5.88 10^6/uL (4.1-5.3); Red Cell Distribution Width 12.7 % (12.1-15.1); White Blood Count 10.1 10^3/uL (4.0-10.0)
[2020-09-06 22:58] LABS: Troponin(5th) Baseline 14 ng/L (0-15)
[2020-09-06 23:00] LABS: Alanine Aminotransferase 18 U/L (0-41); Albumin Level 4.3 g/dL (3.5-5.2); Alkaline Phosphatase 85 IU/L (40-130); Anion Gap 17.8 (5-19); Aspartate Amino Transferase 16 U/L (0-40); Blood Urea Nitrogen 10 mg/dL (6-20); Calcium 8.4 mg/dL (8.5-10.5); Carbon Dioxide 20 mmol/L (22-29); Chloride 103 mmol/L (98-107); Globulin 2.2 g/dL (1.3-4.6); Glomerular Filtration Rate 115.8 mL/min (90-130); Glucose 101 mg/dL (65-115); Osmolality Calculated 283 mOsm/kg (285-295); Potassium 3.8 mmol/L (3.5-5.1); Sodium 137 mmol/L (136-145); Total Bilirubin 0.6 mg/dL (0.15-1.2); Total Protein 6.5 g/dL (6.6-8.7)
[2020-09-06 23:32] VITALS: BP 155/98; PULSE 79; RESP 22; O2SAT 96
== END 2020-09-06 23:45 | disposition home or self-care (01) ==
PROVIDERS: Emergency Provider Emergency Medicine; PCP Family Medicine
DX: I10 Essential (primary) hypertension (principal); R20.2 Paresthesia of skin; Z79.02 Long term (current) use of antithrombotics/antiplatelets; Z79.82 Long term (current) use of aspirin; I25.2 Old myocardial infarction; Z86.73 Personal history of transient ischemic attack (TIA), and cerebral infarction without residual deficits
CPT/HCPCS: 70450; 71045; 80053; 84484; 85025; 93005; 99284

== ENCOUNTER 2020-10-09 21:29 | Emergency (ER) | payer OTHER, SELFPAY ==
[2020-10-09 21:57] VITALS: BP 141/94; PULSE 72; RESP 17; TEMP 36.7; O2SAT 95; BMI 39.8
--- NOTE | 2020-10-09 22:57 | W.ED.NEUROSD ---
HPI - Neuro Symptoms/Deficit General: Chief Complaint: Neuro Symptoms/Deficit Stated Complaint: Lost form maker plaster in Right Hand Time Seen by Provider: 10/09/20 22:56 History of Present Illness: HPI Narrative: 60-year-old male patient comes in today with complaints of weakness and numbness in the left arm that resolved prior to arrival to the ER. Patient also reports some episodes of numbness in his other extremities for also. Patient appears well. Patient appears no acute distress. Review of Systems General: Reports: 10 or more systems reviewed and unremarkable except in HPI and below Neuro: Reports: numbness in extremities PFSH ED PFSH: Medical History ASHD (arteriosclerotic heart disease) HTN (hypertension) Myocardial infarction Obesity JORGE ALBERTO (obstructive sleep apnea) TIA (transient ischemic attack) Surgical History S/P PTCA (percutaneous transluminal coronary angioplasty) 2018 Family History Father Stroke Brother CAD (coronary artery disease) Social History Smoking and tobacco status: never smoked Alcohol intake: never NIH stroke score NIHSS: Level Of Consciousness - 1a: 0 Level Of Consciousness Questions - 1b: Both Correct Level Of Consciousness Commands - 1c: Both Correct Best Gaze - 2: Normal Visual [place] - 3: No Visual Loss Facial Palsy - 4: Normal Motor Arm Right - 5: No Drift Motor Arm Left - 5: No Drift Motor Leg Right - 6: No Drift Motor Leg Left - 6: No Drift Limb Ataxia - 7: Absent Sensory - 8: Normal Best Language - 9: No Aphasia Dysarthia - 10: Normal Extinction And Inattention - 11: 0 Score: Total Score: 0 Physical Exam Const: COMMON NORMALS: no acute distress and patient oriented x3 GENERAL APPEARANCE: cooperative HENMT: COMMON NORMALS: normocephalic, TM's normal bilaterally and Normal external nose present HEAD & SCALP: normal to inspection and normocephalic NOSE: Normal external nose present TYMPANIC MEMBRANE: TM's normal bilaterally MOUTH: Normal oral and palatal mucosa present THROAT: posterior oropharynx normal Eye: GENERAL EYE: appearance normal, both eyes and all related structures Neck/C-Spine: COMMON NORMALS: full ROM CERVICAL SPINE: No Cervical spine tenderness Lymph: LYMPHATIC: no lymphadenopathy noted Chest: COMMONS NORMALS: normal inspection of the chest Resp: COMMON NORMALS: normal respiratory effort EFFORT & INSPECTION: Yes able to speak in complete sentences Cardio: COMMON NORMALS: regular rate and regular rhythm RATE: regular rate RHYTHM: regular rhythm GI: COMMON NORMALS: non-tender : COMMON NORMALS: Yes no CVA tenderness BLADDER/KIDNEY EXAM: Yes no CVA tenderness Back/Pelvis: COMMON NORMALS: no CVA tenderness and thoracic and lumbar spine normal to inspection Extremity: COMMON NORMALS: normal to inspection Neuro: COMMON NORMALS: patient oriented x3 and moves all extremities Psych: COMMON NORMALS: mental status grossly normal and cooperative Skin: COMMON NORMALS: no rashes or lesions noted GENERAL SKIN EXAM: no rashes or lesions noted Course Vital Signs: Vital signs: Vital Signs Temperature 98.1 F 10/09/20 21:57 Pulse Rate 72 10/09/20 21:57 Respiratory Rate 17 10/09/20 21:57 Blood Pressure 141/94 10/09/20 21:57 Pulse Oximetry 95 10/09/20 21:57 MDM - Neuro Symptoms/Deficit MDM Narrative: Medical decision making narrative: Patient came in tonight to be evaluated for some concerns of numbness and in the extremities and weakness in his left hand. Patient has had episodes of this for the last 1 to 2 months. Patient has been evaluated in this emergency room about 1 month ago and then at [facility] [place] 1 week ago. No abnormalities have been found acutely. On exam patient is alert oriented. Equal strength is noted in all extremities. Pulses are intact in all extremities. Prompt capillary refill is noted. Vital signs are normal. Differential diagnosis includes but not limited to TIA, BPV, peripheral neuropathy, cervical radiculopathy. Laboratory values were unremarkable. Repeat CT scan of the head was normal or without change from previous exam. Patient reported that he was normal prior to discharge and I feel the patient probably needs to see a neurologist for further evaluation to rule out other pathology. Patient was recommended to follow-up with his primary care. Case management order was placed. Patient reported understanding of care plan and agreed to plan. Lab Data: Labs: Lab Results 10/10/20 10/10/20 Range/Units 00:05 00:05 WBC 8.7 (4.0-10.0) 10^3/ uL RBC 5.61 H (4.1-5.3) 10^6/u L Hgb 16.4 (11.7-16.6) g/dL Hct 50.3 (42.0-52.0) % MCV 89.7 (80-94) fL MCH 29.2 (28.0-34.0) pg MCHC 32.6 (30.0-36.0) g/dL RDW 12.3 (12.1-15.1) % Plt Count 171 (130-400) 10^3/c mm MPV 10.7 H (7.4-10.4) fL Neut % (Auto) 66.7 % Lymph % (Auto) 21.1 % [place] % (Auto) 7.9 % Eos % (Auto) 3.5 % Baso % (Auto) 0.6 % Neut # (Auto) 5.79 (1.8-7.7) 10^3/u L Lymph # (Auto) 1.8 (0.8-4.8) 10^3/u L [place] # (Auto) 0.7 (0.2-0.9) 10^3/u L Eos # (Auto) 0.3 (0.0-0.8) 10^3/u L Baso # (Auto) 0.1 (0.0-0.1) 10^3/u L Nucleated RBC % (a uto) 0 % Nucleated RBCs # 0.0 /100WBC Sodium 138 (136-145) mmol/L Potassium 3.8 (3.5-5.1) mmol/L Chloride 105 (98-107) mmol/L Carbon Dioxide 22 (22-29) mmol/L Anion Gap 14.8 (5-19) BUN 12 (6-20) mg/dL Creatinine 0.8 (0.7-1.2) mg/dL GFR Calculation 99.3 (90-130) mL/min Glucose 97 (65-115) mg/dL Calculated Osmolal ity 286 (285-295) mOsm/k g Calcium 8.7 (8.5-10.5) mg/dL Discharge Plan Discharge Patient Disposition: Home Clinical Impression: TIA (transient ischemic attack) Peripheral neuropathy Qualifiers: Peripheral neuropathy type: polyneuropathy, unspecified Qualified Code(s): G62.9 - Polyneuropathy, unspecified Condition: Stable Prescriptions: No Action omega-3 fatty acids [Fish Oil Concentrate] 1,000 mg capsule 1,000 mg PO DAILY RF: 0 nitroglycerin 0.4 mg tablet, sublingual 0.4 mg SUBLINGUAL Q5M PRN (Reason: chest pain) Qty: 25 RF: 3 aspirin 81 mg tablet,delayed release (DR/EC) 81 mg PO DAILY Qty: 90 RF: 3 simvastatin 20 mg tablet 20 mg PO DAILY 90 Days Qty: 90 RF: 3 lisinopril 10 mg tablet 30 mg PO DAILY@1800 RF: 0 docusate sodium 1 - 2 tab PO BID PRN (Reason: Constipation) RF: 0 clopidogrel 75 mg tablet 75 mg PO DAILY@2100 RF: 0 metoprolol tartrate 25 mg tablet 37.5 mg PO BID Qty: 180 RF: 3 Discharge Orders: Discharge ED (Routine); Ordered 10/10/20 Ordered By: Kenneth Hart Referrals: Ronna Lopes DO [Primary Care Provider] - Discharge Diet: Usual diet Discharge Activity: Increase activity as tolerated Patient Instructions: Paresthesia (ED), Opioid Safety Activity Restrictions/Additional Instructions: Activity as tolerated. Continue with routine medications. Drink plenty of water. Follow-up with primary care for further instruction. Return to the emergency room for worsening symptoms or new concerns. 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
--- NOTE | 2020-10-09 23:07 | CTR_ITS ---
PROCEDURE INFORMATION: Exam: CT Head Without Contrast Exam date and time: 10/09/2020 11:07 PM Age: 60 years old Clinical indication: Weakness, extremity; Patient HX: Left hand numbness. History of TIA. ; Additional info: Transient weakness, numbness TECHNIQUE: Imaging protocol: Computed tomography of the head without contrast. Radiation optimization: All CT scans at this facility use at least one of these dose optimization techniques: automated exposure control; mA and/or kV adjustment per patient size (includes targeted exams where dose is matched to clinical indication); or iterative reconstruction. COMPARISON: 1. CT head wo con* [id number] 09/06/2020 9:[address] head wo con* [id number] 06/07/2017 9:37 PM RADIATION DOSE METRICS: Total DLP (mGy-cm): 879.27 FINDINGS: Brain: No acute intracranial hemorrhage or mass effect. No definite acute infarct by CT. MRI could be more sensitive/specific for detection, as clinically directed. Cerebral ventricles: Ventricle size is normal for age. Paranasal sinuses: Mild mucosal thickening in the ethmoid sinuses. Included paranasal sinuses otherwise are essentially clear. Mastoid air cells: No significant acute finding. Vasculature: Vascular calcifications in the internal carotid and vertebral basilar systems. Bones/joints: No definite acute skull fracture. CT/CT head wo con* [id number] IMPRESSION: 1. No acute intracranial hemorrhage or mass effect. 2. No definite acute infarct by CT, see above. 3. Other findings discussed above. Radiation Dose CTDIVOL = (mGy): DLP = 879.27 (mGy-cm)
[2020-10-10 00:18] LABS: Basophils # 0.1 10^3/uL (0.0-0.1); Basophils % 0.6 %; Eosinophils # 0.3 10^3/uL (0.0-0.8); Eosinophils % 3.5 %; Hematocrit 50.3 % (42.0-52.0); Hemoglobin 16.4 g/dL (11.7-16.6); Lymphocytes # 1.8 10^3/uL (0.8-4.8); Lymphocytes % 21.1 %; Mean Corpuscular HGB Conc 32.6 g/dL (30.0-36.0); Mean Corpuscular Hemoglobin 29.2 pg (28.0-34.0); Mean Corpuscular Volume 89.7 fL (80-94); Mean Platelet Volume 10.7 fL (7.4-10.4); Monocytes # 0.7 10^3/uL (0.2-0.9); Monocytes % 7.9 %; Neutrophils # 5.79 10^3/uL (1.8-7.7); Neutrophils % 66.7 %; Nucleated Red Blood Cells % 0 %; Platelet Count 171 10^3/cmm (130-400); Red Blood Count 5.61 10^6/uL (4.1-5.3); Red Cell Distribution Width 12.3 % (12.1-15.1); White Blood Count 8.7 10^3/uL (4.0-10.0)
[2020-10-10 00:28] LABS: Anion Gap 14.8 (5-19); Blood Urea Nitrogen 12 mg/dL (6-20); Calcium 8.7 mg/dL (8.5-10.5); Carbon Dioxide 22 mmol/L (22-29); Chloride 105 mmol/L (98-107); Glomerular Filtration Rate 99.3 mL/min (90-130); Glucose 97 mg/dL (65-115); Osmolality Calculated 286 mOsm/kg (285-295); Potassium 3.8 mmol/L (3.5-5.1); Sodium 138 mmol/L (136-145)
[2020-10-10 01:16] VITALS: BP 141/94; PULSE 95; RESP 17; O2SAT 95
--- NOTE | 2020-10-10 09:16 | PC.SOCIAL ---
Referral received for neurology for peripheral numbness. Emailed Neurology group and they will reach out to patient to schedule appointment.
--- NOTE | 2020-10-23 14:11 | DCPLANNER ---
Addendum entered by Anita Pace 10/25/20 07:56: assistant manager bilingual was contacted and was told that patient is following up with Dr. Duran in [facility]. Original Note: assistant manager bilingual emailed the neurology group to confirm if a follow up appointment had been scheduled for patient.
== END 2020-10-10 01:10 | disposition home or self-care (01) ==
PROVIDERS: Emergency Provider Nurse Practitioner Family; PCP Family Medicine
DX: G45.9 Transient cerebral ischemic attack, unspecified (principal); G62.9 Polyneuropathy, unspecified; Z79.82 Long term (current) use of aspirin; I10 Essential (primary) hypertension; I25.2 Old myocardial infarction; Z86.73 Personal history of transient ischemic attack (TIA), and cerebral infarction without residual deficits
CPT/HCPCS: 70450; 80048; 85025; 99283

== ENCOUNTER 2020-10-15 07:22 | Outpatient (CLI) | payer OTHER, SELFPAY ==
[2020-10-15 07:35] VITALS: BMI 40.6
--- NOTE | 2020-10-15 07:56 | ECG_ITS ---
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 Interpretive Statements NAME OF STUDY: EXERCISE SESTAMIBI STRESS TEST INDICATION: [Chest Pain; Shortness of Breath] EXERCISE DATA: The patient was exercised by [place] protocol. Baseline heart rate was 98 beats per minute. Baseline blood pressure was 122/85 millimeters of mercury. Target heart rate was 138 beats per minute. Maximum heart rate achieved was 143, which was 104% of the target heart rate. Maximum blood pressure was 168/79 millimeters of mercury. Total exercise time was 5 minutes and 53 seconds. Maximum METs achieved was 7, maximum VO2 was 24.5. The reason for ending the test was completion of the protocol] The patient did not complain of symptoms during the stress test, which then resolved at the end of the test. ELECTROCARDIOGRAM: BASELINE: Showed sinus rhythm, normal axis, no significant ST-T changes at the baseline noted. Q waves seen in th annterolateral leads[] EXERCISE: At the peak exercise level, [] No significant ST-T changes suggestive of ischemia noted. [] RECOVERY: During the recovery period, heart rate dropped appropriately. No significant ST-T changes in the recovery suggestive of ischemia noted. [] CONCLUSION: 1. Exercise capacity fair. 2. Heart rate response was appropriate. 3. Blood pressure response was appropriate. 4. Symptoms not suggestive of ischemia. 5. Electrocardiogram portion of the stress test was not suggestive of ischemia. 6. Nuclear scan will be documented separately. Electronically Signed On 11-12-2020 15:27:58 CDT by Robert Atkinson M.D. [id number]
--- NOTE | 2020-10-15 07:59 | NMCV_ITS ---
NM tanya perf SPECT r/s* [id number] Costa Trujillo Age: 60 Gender: M : 1960 Exam Date: 10/15/2020 08:43 Ordering Phys: Robert Atkinson M.D ([email or web address]) Technologist: MADELYN Marie Exam Location: [facility] Indications: CHEST PAIN SHORTNESS OF BREATH STRESS TEST Please see separate stress test report in [facility]any for full findings IMAGE PROTOCOL Rest/Stress 1 Exercise Day Radiopharmaceutical Dose (mCi) Administration Site Administered by Rest: Tc-99m 10.9 IV MADELYN Marie Sestamibi Stress:Tc-99m 33.0 IV MADELYN Lara Sestamibi Rest: 15-Oct-2020 60 Discovery 630 Stress: 15-Oct-2020 30 Discovery 630 Radiopharmaceutical was injected at 85 % maximum heart rate. Images obtained in supine and prone position. SPECT RESULTS Technical Quality: Excellent Raw Data Analysis: Soft tissue attenuation Image Corrections: No attenuation or motion correction applied Summed Stress Score: 38 Summed Rest Score: 37 Summed Difference Score: 2 PERFUSION FINDINGS There is large area of mostly fixed myocardial perfusion defect in the apical, apical anterior, anteroseptal, inferior and apical to basal lateral baron. This likely represents prior infarct with moderate jay-infarct ischemia noted in the anterior, septal and inferior baron. FUNCTIONAL RESULTS (calculated via Gated SPECT) Stress Image LV EF (%): 37 Stress EDV (mL):206 TID: 0.95 Stress ESV (mL):129 FUNCTIONAL FINDINGS: LV systolic function is moderately reduced. IMPRESSIONS 1. There is a large area of perfusion abnormality showing infarct in the apical, apical anterior, anteroseptal, inferior and lateral baron with jay- infarct ischemia noted in the anteroseptal wall and mid inferior baron. Clinical correlation is required 2. LV systolic function is moderately reduced with global hypokinesis Robert Atkinson MD (Electronically Signed) Final Date: 17 October 2020 10:45 S
[2020-10-15 09:35] VITALS: BP 119/81; PULSE 98
== END 2020-10-15 07:23 | disposition home or self-care (01) ==
PROVIDERS: PCP Family Medicine; Visit Provider Internal Medicine
DX: R07.9 Chest pain, unspecified (principal); R06.02 Shortness of breath; R73.03 Prediabetes
CPT/HCPCS: 78452; 83036; 93017; A9500

== ENCOUNTER 2020-11-02 13:32 | Emergency (ER) | payer OTHER, SELFPAY ==
[2020-11-02 13:35] VITALS: BP 136/84; PULSE 88; RESP 20; TEMP 37.1; O2SAT 95; BMI 39.3
--- NOTE | 2020-11-02 14:11 | ECG_ITS ---
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 Measurements Intervals [place] Rate: 76 P: 37 WI: 198 QRS: -42 QRSD: 137 T: 4 QT: 405 QTc: 457 Interpretive Statements SINUS RHYTHM MARKED LEFT AXIS DEVIATION [QRS AXIS < -30] INTRAVENTRICULAR CONDUCTION DELAY [130+ ms QRS DURATION] ANTEROSEPTAL MYOCARDIAL INFARCTION [40+ ms Q WAVE IN V1-V4], OF INDETERMINATE AGE Compared to ECG 09/06/2020 22:52:48 Myocardial infarct finding now present Electronically Signed On 11-02-2020 19:32:13 CDT by Kev Ritchie M.D. [id number]
--- NOTE | 2020-11-02 14:11 | XRR_ITS ---
PROCEDURE INFORMATION: Exam: XR Chest Exam date and time: 11/02/2020 2:11 PM Age: 60 years old Clinical indication: Cough and dyspnea; Additional info: Dyspnea/cough TECHNIQUE: Imaging protocol: XR of the chest. Views: 1 view. COMPARISON: CR (CHEST, ) 09/06/2020 9:09 PM FINDINGS: Lungs: Emphysematous changes. Bibasilar atelectasis versus minimal infiltrate. Pleural spaces: Unremarkable. No pleural effusion. No pneumothorax. Heart/Mediastinum: Unremarkable. No cardiomegaly. Bones/joints: Unremarkable. XR/XR chest 1V portable [id number] IMPRESSION: 1. Emphysematous changes. 2. Bibasilar atelectasis versus minimal infiltrate.
--- NOTE | 2020-11-02 14:11 | W.ED.ARRPALP ---
HPI - Arrhythmia/Palpitations General: Chief Complaint: Arrhythmia/Palpitations Stated Complaint: High HR Time Seen by Provider: 11/02/20 13:50 History of Present Illness: HPI narrative: 60-year-old male presents to the emergency room with complaints of palpitations. He took his metoprolol late today he takes 12.5 mg twice daily. He had heart rate she recorded on home finger sat monitor up to 130s. He is back to normal now no pain at any point but he did have quite a bit of dizziness he reports this all happened shortly after he took his metoprolol while he was resting.2 weeks ago he had a stress test that showed a relative perfusion abnormality with old infarct apical apical anterior anterior and anterior septal inferior and lateral baron with jay-infarct ischemia in the anterior septal and mid inferior baron. He had global hypokinesis as well. He has not had any angiogram recently. Patient has impaired glucose tolerance as well as some peripheral neuropathies. MD complaint: rapid heart beat and heart racing Onset (ago): hour(s) Duration: constant Severity: mild Context: occurred during rest Associated symptoms: Reports sense of impending doom; Deny anxiety, cough, diaphoresis, muscle cramps, nausea, paresthesias, pre-syncope, short of breath, syncope or vomiting Review of Systems Const: Denies: diaphoresis ENMT: Denies: throat pain, ear or mastoid pain, nasal discharge or nasal congestion Card: Denies: syncope or pre-syncope Resp: Denies: dyspnea, productive cough or non-productive cough GI: Denies: nausea or vomiting : Denies: flank pain, dysuria, urinary frequency or urinary urgency Musc: Denies: muscle cramps Skin/Breast: Denies: rash or pruritus Psych: Denies: anxiety PFS ED PFSH: Medical History ASHD (arteriosclerotic heart disease) HTN (hypertension) Myocardial infarction Obesity JORGE ALBERTO (obstructive sleep apnea) TIA (transient ischemic attack) Surgical History S/P PTCA (percutaneous transluminal coronary angioplasty) 2018 Family History Father Stroke Brother CAD (coronary artery disease) Social History Smoking and tobacco status: never smoked Alcohol intake: never Physical Exam Const: COMMON NORMALS: no acute distress GENERAL APPEARANCE: cooperative and comfortable ORIENTATION/CONSCIOUSNESS: Yes awake, Yes oriented to person, Yes oriented to place and Yes oriented to time HENMT: COMMON NORMALS: normocephalic, atraumatic and hearing grossly normal bilaterally HEAD & SCALP: normocephalic and atraumatic Neck/C-Spine: COMMON NORMALS: no JVD Resp: COMMON NORMALS: normal respiratory effort, No retractions, No use of accessory muscles and clear to auscultation bilaterally AUSCULTATION: clear to auscultation bilaterally Cardio: COMMON NORMALS: no JVD, regular rate, regular rhythm and No murmurs present (Cardio) RATE: regular rate RHYTHM: regular rhythm GI: COMMON NORMALS: Soft to palpation and No hepatosplenomegaly present AUSCULTATION: Yes normoactive bowel sounds PALPATION: Yes Soft to palpation, No Tenderness to palpation present (GI), No Guarding due to palpation present (GI) and Yes No hepatosplenomegaly present Extremity: COMMON NORMALS: normal to inspection, capillary refill normal, no clubbing, cyanosis or edema, no calf tenderness and no pedal edema Neuro: SENSORIUM/ORIENTATION: Yes oriented to person, Yes oriented to place and Yes oriented to time Skin: COMMON NORMALS: no rashes or lesions noted GENERAL SKIN EXAM: no rashes or lesions noted Course Vital Signs: Vital signs: Vital Signs Temperature 98.7 F 11/02/20 13:35 Pulse Rate 70 11/02/20 18:35 Respiratory Rate 16 11/02/20 18:35 Blood Pressure 146/95 11/02/20 18:35 Pulse Oximetry 98 11/02/20 18:35 MDM - Arrhythmia/Palpitations MDM Narrative: Medical decision making narrative: No significant in the lab or EKG. Will discharge patient home set him up for outpatient 48-hour Holter monitor return if his problems. Lab Data: Labs: Lab Results 11/02/20 11/02/20 11/02/20 Range/Units 14:27 14:27 14:27 WBC 9.2 (4.0-10.0) 10^3/ uL RBC 5.69 H (4.1-5.3) 10^6/u L Hgb 16.6 (11.7-16.6) g/dL Hct 50.1 (42.0-52.0) % MCV 88.0 (80-94) fL MCH 29.2 (28.0-34.0) pg MCHC 33.1 (30.0-36.0) g/dL RDW 12.3 (12.1-15.1) % Plt Count 184 (130-400) 10^3/c mm MPV 10.7 H (7.4-10.4) fL Neut % (Auto) 80.8 % Lymph % (Auto) 9.2 % [place] % (Auto) 7.3 % Eos % (Auto) 2.1 % Baso % (Auto) 0.4 % Neut # (Auto) 7.47 (1.8-7.7) 10^3/u L Lymph # (Auto) 0.9 (0.8-4.8) 10^3/u L [place] # (Auto) 0.7 (0.2-0.9) 10^3/u L Eos # (Auto) 0.2 (0.0-0.8) 10^3/u L Baso # (Auto) 0.0 (0.0-0.1) 10^3/u L Nucleated RBC % (a uto) 0 % Nucleated RBCs # 0.0 /100WBC Sodium 141 (136-145) mmol/L Potassium 4.1 (3.5-5.1) mmol/L Chloride 108 H (98-107) mmol/L Carbon Dioxide 22 (22-29) mmol/L Anion Gap 15.1 (5-19) BUN 12 (6-20) mg/dL Creatinine 1.0 (0.7-1.2) mg/dL GFR Calculation 76.7 L (90-130) mL/min Glucose 123 H (65-115) mg/dL Calculated Osmolal ity 293 (285-295) mOsm/k g Calcium 8.2 L (8.5-10.5) mg/dL Total Bilirubin 0.3 (0.15-1.2) mg/dL AST 16 (0-40) U/L ALT 18 (0-41) U/L Alkaline Phosphata se 79 (40-130) IU/L Troponin T Baselin e 11 (0-15) ng/L Troponin T 120 Min [place] (0-15) ng/L Delta Troponin T (0-10) ABS# Total Protein 5.6 L (6.6-8.7) g/dL Albumin 4.1 (3.5-5.2) g/dL Globulin 1.5 (1.3-4.6) g/dL 11/02/20 Range/Units 17:18 WBC (4.0-10.0) 10^3/ uL RBC (4.1-5.3) 10^6/u L Hgb (11.7-16.6) g/dL Hct (42.0-52.0) % MCV (80-94) fL MCH (28.0-34.0) pg MCHC (30.0-36.0) g/dL RDW (12.1-15.1) % Plt Count (130-400) 10^3/c mm MPV (7.4-10.4) fL Neut % (Auto) % Lymph % (Auto) % [place] % (Auto) % Eos % (Auto) % Baso % (Auto) % Neut # (Auto) (1.8-7.7) 10^3/u L Lymph # (Auto) (0.8-4.8) 10^3/u L [place] # (Auto) (0.2-0.9) 10^3/u L Eos # (Auto) (0.0-0.8) 10^3/u L Baso # (Auto) (0.0-0.1) 10^3/u L Nucleated RBC % (a uto) % Nucleated RBCs # /100WBC Sodium (136-145) mmol/L Potassium (3.5-5.1) mmol/L Chloride (98-107) mmol/L Carbon Dioxide (22-29) mmol/L Anion Gap (5-19) BUN (6-20) mg/dL Creatinine (0.7-1.2) mg/dL GFR Calculation (90-130) mL/min Glucose (65-115) mg/dL Calculated Osmolal ity (285-295) mOsm/k g Calcium (8.5-10.5) mg/dL Total Bilirubin (0.15-1.2) mg/dL AST (0-40) U/L ALT (0-41) U/L Alkaline Phosphata se (40-130) IU/L Troponin T Baselin e (0-15) ng/L Troponin T 120 Min [place] 11.74 (0-15) ng/L Delta Troponin T 0.74 (0-10) ABS# Total Protein (6.6-8.7) g/dL Albumin (3.5-5.2) g/dL Globulin (1.3-4.6) g/dL Discharge Plan Discharge Patient Disposition: Home Clinical Impression: Palpitations Condition: Stable Prescriptions: No Action omega-3 fatty acids [Fish Oil Concentrate] 1,000 mg capsule 1,000 mg PO BID RF: 0 nitroglycerin 0.4 mg tablet, sublingual 0.4 mg SUBLINGUAL Q5M PRN (Reason: chest pain) Qty: 25 RF: 3 metoprolol tartrate 25 mg tablet 25 mg PO BID RF: 0 lisinopril 30 mg tablet 30 mg PO DAILY@1800 Qty: 90 RF: 0 aspirin 81 mg tablet,delayed release (DR/EC) 81 mg PO DAILY Qty: 90 RF: 3 simvastatin 20 mg tablet 20 mg PO DAILY 90 Days Qty: 90 RF: 3 docusate sodium 1 - 2 tab PO BID PRN (Reason: Constipation) RF: 0 clopidogrel 75 mg tablet 75 mg PO DAILY@2100 RF: 0 Discharge Orders: Discharge ED (Routine); Ordered 11/02/20 Ordered By: Campbell Loo Referrals: Ronna Lopes DO [Primary Care Provider] - Discharge Diet: Usual diet Discharge Activity: Increase activity as tolerated Patient Instructions: Opioid Safety Activity Restrictions/Additional Instructions: Case management will call to make arrangements for you to have a 48-hour Holter monitor. Coding Level of Care Code ED Nurse Executive for Holger Fwclarisse Exam Comprehensive
--- NOTE | 2020-11-02 14:31 | PC.NURSE ---
patient denied any chest pain or shortness of breath. stated felt good at this time.
[2020-11-02 14:34] LABS: Basophils % 0.4 %; Eosinophils # 0.2 10^3/uL (0.0-0.8); Eosinophils % 2.1 %; Hematocrit 50.1 % (42.0-52.0); Hemoglobin 16.6 g/dL (11.7-16.6); Lymphocytes # 0.9 10^3/uL (0.8-4.8); Lymphocytes % 9.2 %; Mean Corpuscular HGB Conc 33.1 g/dL (30.0-36.0); Mean Corpuscular Hemoglobin 29.2 pg (28.0-34.0); Mean Platelet Volume 10.7 fL (7.4-10.4); Monocytes # 0.7 10^3/uL (0.2-0.9); Monocytes % 7.3 %; Neutrophils # 7.47 10^3/uL (1.8-7.7); Neutrophils % 80.8 %; Nucleated Red Blood Cells % 0 %; Platelet Count 184 10^3/cmm (130-400); Red Blood Count 5.69 10^6/uL (4.1-5.3); Red Cell Distribution Width 12.3 % (12.1-15.1); White Blood Count 9.2 10^3/uL (4.0-10.0)
[2020-11-02 14:52] LABS: Troponin(5th) Baseline 11 ng/L (0-15)
[2020-11-02 14:54] LABS: Alanine Aminotransferase 18 U/L (0-41); Albumin Level 4.1 g/dL (3.5-5.2); Alkaline Phosphatase 79 IU/L (40-130); Anion Gap 15.1 (5-19); Aspartate Amino Transferase 16 U/L (0-40); Blood Urea Nitrogen 12 mg/dL (6-20); Calcium 8.2 mg/dL (8.5-10.5); Carbon Dioxide 22 mmol/L (22-29); Chloride 108 mmol/L (98-107); Creatinine Clr Calc Pharmacy 136.1856; Globulin 1.5 g/dL (1.3-4.6); Glomerular Filtration Rate 76.7 mL/min (90-130); Glucose 123 mg/dL (65-115); Osmolality Calculated 293 mOsm/kg (285-295); Potassium 4.1 mmol/L (3.5-5.1); Sodium 141 mmol/L (136-145); Total Bilirubin 0.3 mg/dL (0.15-1.2); Total Protein 5.6 g/dL (6.6-8.7)
[2020-11-02 15:22] VITALS: BP 127/85; PULSE 75; RESP 16; O2SAT 95
--- NOTE | 2020-11-02 16:11 | ECG_ITS ---
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 Measurements Intervals [place] Rate: 70 P: 26 MO: 198 QRS: -42 QRSD: 132 T: -4 QT: 413 QTc: 446 Interpretive Statements SINUS RHYTHM MARKED LEFT AXIS DEVIATION [QRS AXIS < -30] INTRAVENTRICULAR CONDUCTION DELAY [130+ ms QRS DURATION] ANTEROSEPTAL MYOCARDIAL INFARCTION [40+ ms Q WAVE IN V1-V4], PROBABLY RECENT ACUTE [place] Compared to ECG 11/02/2020 14:31:34 No significant changes Electronically Signed On 11-02-2020 19:36:55 CDT by Kev Ritchie M.D. [id number]
[2020-11-02 17:26] VITALS: BP 132/99; PULSE 76; RESP 16; O2SAT 97
[2020-11-02 17:57] LABS: Troponin 5 2HR 11.74 ng/L (0-15); Troponin 5 2HR Delta 0.74 ABS# (0-10)
[2020-11-02 18:35] VITALS: BP 146/95; PULSE 70; RESP 16; O2SAT 98
--- NOTE | 2020-11-07 10:36 | DCPLANNER ---
data analysis manager had message to schedule an outpatient 48 hour holter monitor for patient. data analysis manager faxed order to [facility]. data analysis manager will call for appointment information.
--- NOTE | 2020-11-19 14:33 | DCPLANNER ---
medical records manager called [facility], spoke with Brenna to confirm that a follow up appointment had been scheduled for patient. medical records manager was told that patient is being closely followed by cardiology, and if the physician says that patient if patient needs the halter monitor than the clinic will order one at that time.
== END 2020-11-02 18:40 | disposition home or self-care (01) ==
PROVIDERS: Emergency Provider Family Medicine; PCP Family Medicine
DX: R00.2 Palpitations (principal); Z79.82 Long term (current) use of aspirin; I10 Essential (primary) hypertension; I25.2 Old myocardial infarction; Z86.73 Personal history of transient ischemic attack (TIA), and cerebral infarction without residual deficits
CPT/HCPCS: 71045; 80053; 84484; 85025; 93005; 99284

== ENCOUNTER → 2020-11-18 08:30 | Outpatient (BNVA) | payer OTHER, SELFPAY | PROVIDERS: PCP Family Medicine; Referring Provider Internal Medicine; Visit Provider Internal Medicine | DX: Z01.812 Encounter for preprocedural laboratory examination (principal); Z20.822 Contact with and (suspected) exposure to COVID-19; I25.10 Atherosclerotic heart disease of native coronary artery without angina pectoris; I10 Essential (primary) hypertension; Z98.61 Coronary angioplasty status | CPT/HCPCS: 80048; 85025; 85610; 87635 ==

== ENCOUNTER 2020-11-22 06:03 | Day surgery (SDC) | payer OTHER, SELFPAY ==
[2020-11-22] VITALS (25 sets, daily range): BP systolic 107–146; BP diastolic 69–106; PULSE 56–83; RESP 0–24; TEMP 36.8; O2SAT 92–98; BMI 38.2
--- NOTE | 2020-11-22 06:00 | XACV_ITS ---
Exam Room: 1 Ht: 170 cm Wt: 169 kg BSA: 2.94 m2 Gender: Male : 1960 Any Known Allergies: Other Exam Priority: Routine Indication(s): - Abnormal nuclear perfusion study - Angina Procedure(s): Procedure Description: Diagnostic procedure Procedure Description: PCI procedure Procedure Description: Drug Eluting Coronary Stent Procedure Description: PTCA Procedure Description: Coronary Angiography Diagnostic Cath Status: Elective Diagnostic Findings * Left Main has minor luminal irregularities. * Circumflex has minor luminal irregularities. * Mid Left Anterior Descending: mild 40% stenosis, REFUGIO: 3 flow. Patent prior stents. * Right Coronary Artery has no disease. * 1st Diagonal: significant 75% stenosis, REFUGIO: 3 flow. * Second Obtuse Marginal Branch Segment: moderate 50% stenosis, REFUGIO: 3 flow. * Coronary angiography shows left dominance. PCI Status: Elective PCI Indication: Other Interventional Findings * Procedure details: We engaged left main artery with a XB 3.5 guide catheter. IV heparin was administered to maintain an ACT above 250 seconds. A 0.014 run-through guidewire was used to cross the stenosis and was placed in distal diagonal artery. 2.5 x 8 mm semicompliant balloon was used to predilate the stenosis in the diagonal artery. This was followed by placement of 2.75x12 mm resolute Negro drug-eluting stent. At this time final angiogram was performed that showed excellent stent expansion, REFUGIO-3 flow and no residual stenosis. Guidewire and guide catheter were removed. 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 * INDICATION: Worsening chest pain. * 1st Diagonal: 75% stenosis treated with a AB TREK 2.50X8 RX BALLOON, and MDT R NEGRO 2.75X12 UMAIR. 0% residual stenosis, REFUGIO: 3 flow. Conclusions 1. 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 2. 1st Diagonal was treated with a Balloon, and Drug Eluting Stent. Recommendations * Aspirin and Plavix for atleast 1 year. * High intensity statin therapy. * Transfer to [facility]. * Outpatient cardiology follow up in 4 weeks. Interventional RX Recommendation: PCI w/o planned CABG Diagnostic RX Recommendation: PCI w/o planned CABG Anticoagulation: Heparin Pressures Phase:Rest AO : 84 / 62 ( 74 ) @ 6:54:00 AM 84 / 64 ( 58 ) @ 7:04:00 AM Clinical Evaluation EBL: 5mL-10mL Procedural Details Procedure Consent Obtained. Pre-Procedure Time Out. Identified patient by full name and date of as verbalized by the patient/guarantor. Does the consent match the physician's order: Yes. Accurate & Complete Informed Consent: Yes. Inpatient/Outpatient History & Physical on Chart: Yes. If H&P is completed, is and addenduem needed: Yes; If yes, is the addendum complete: Yes. Visualize and Verify Site with Patient/Guarantor: N/A. Relevant Radiology Images available: Yes. The risks, benefits, and alternatives of sedation and/or procedure were discussed by physician. The patient agrees to continue. Procedure started. [facility] Clinical Fraility Score: 3: Managing Well. Sort Worker Indications: New Onset Angina. Chest Pain Symptom Assessment: Typical Angina Symptoms. Cardiovascular Instability: No. Correct patient, site and procedure confirmed by cath team. PERRLA. 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 Lungs clear x 5 lobes. IV Site on Arrival: 20 gauge in the left anticubital. IV Fluids: 0.9% NaCl at KVO. 0 mL infused prior to laboratory engineer. Pre Procedural Pulses: bilateral dorsalis pedis was 3+. Pre Procedural Pulses: bilateral posterior tibial was 3+. Pre Procedural Pulses: bilateral radial was 3+. Oxygen started at 2liters/min via nasal canula. right groin was prepped with chloroprep then draped in the usual sterile fashion. right radial was prepped with chloroprep then draped in the usual sterile fashion. Physician here. Baseline sample Acquired. HR: 66 BPM. Patient's family unavailable due to current Covid restrictions. Equipment: 6F - Radial. Cardiac Cath Pack. ACIST Manifold Kit Model BT 2000. Heparinized Saline (2 units/mL), 1000 mL bag. Wili Orozco RN, circulating with Gustavo Meyer RN. Physician scrubbed in. Immediate Pre-Procedure Time Out. Correct Patient: Yes; Correct Procedure: Yes; Correct Site: Yes; Correct Patient Position: Yes; Correct Supplies: Yes; Dried Flammable Prep: Yes Blood Products Available: N/A. Lidocaine 1% infiltrated to the right radial. Arterial access obtained. A 5 ethiopian TIG catheter in over the exchange wire. Multiple views taken of left coronary artery. Catheter redirected to the RCA, unable to cannulate. Catheter removed over the exchange wire. A 5 ethiopian JR4 catheter in over the exchange wire. Cine of right coronary artery performed. Catheter removed over the exchange wire. Diagnostic cath complete, starting intervention. 6 ethiopian XB 3.5 guide catheter was inserted over the exchange wire. [place] guidewire was advanced through the guide catheter to lesion in the diaganol. Inflation number : 1 A AB TREK 2.50X8 RX BALLOON was prepped and advanced across the 1st Diag , then inflated to 12 SOWMYA for 0:19 seconds. Inflation number: 2 The AB TREK 2.50X8 RX BALLOON was reinflated across the 1st Diag, to 12 SOWMYA for 0:16 seconds. Balloon out. Inflation Number : 3 A ALEJANDRO Alexander NEGRO 2.75X12 UMAIR -Lot Number# [id number] was prepped and advanced across the 1st Diag. The stent was deployed at 12 SOWMYA for 0:29 seconds. Exp date 06/25/2022. Stent balloon out over wire. Results checked. Wire out. Results checked. ACT drawn. Results 303 seconds. Therapeutic limits - pre-heparin administration 90-150 seconds and monitoring heparin during a vascular procedure >250 seconds. Guide catheter out over the exchange wire. Physician scrubbed out. Raisa Medeiros, CCP, ORDER DESK CALLER, to scrub with Hansa Marie RT(R). TR band placed. Hemostasis obtained. Post Procedure: Pulses reassessed and unchanged. PERRLA. 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 No VTE prophylaxis required. Medication's Wasted: Lidocaine 1% = 18 mL. Medication's Wasted: Nitro = 49.8 mg. Medication's Wasted: Heparin = 4000 units. Medication's Wasted: Fentanyl = 75mcg. Medication's Wasted: Versed = 1mg. Total IV fluids: 60 mL. PCI Indication: New Onset Angina. Post-op diagnosis: Severe 1st diagonal artery stenosis. Complications: none. Estimated blood loss: 5mL-10mL. A TR Band was successful obtaining hemostatsis at the Right Radial artery insertion site. Procedure completed. Patient transferred by wheelchair to CPRU. Vital chart was stopped. Access Site Site: Right Radial artery Sheath Size: 6 Fr Hemostasis Method: TR Band Hemostasis Success: Successful Procedure Medications Start: 7:45 AM Stop: 7:45 AM Medication: Versed Amount: 1 mg Route: I.V. Start: 7:45 AM Stop: 7:45 AM Medication: Fentanyl Amount: 50 mcg Route: I.V. Start: 7:48 AM Stop: 7:48 AM Medication: Versed Amount: 1 mg Route: I.V. Start: 7:48 AM Stop: 7:48 AM Medication: Fentanyl Amount: 50 mcg Route: I.V. Start: 7:48 AM Stop: 7:48 AM Medication: Nitrogylcerin Amount: 200 mcg Route: I.A. Start: 7:48 AM Stop: 7:48 AM Medication: Versed Amount: 1 mg Route: I.V. Start: 7:49 AM Stop: 7:49 AM Medication: Heparin Amount: 5000 units Route: I.V. Start: 7:58 AM Stop: 7:58 AM Medication: Heparin Amount: 7000 units Route: I.V. Start: 8:00 AM Stop: 8:00 AM Medication: Versed Amount: 1 mg Route: I.V. Start: 8:09 AM Stop: 8:09 AM Medication: Versed Amount: 1 mg Route: I.V. Start: 8:15 AM Stop: 8:15 AM Medication: Fentanyl Amount: 25 mcg Route: I.V. Start: 8:16 AM Stop: 8:16 AM Medication: Aspirin Amount: 81 mg Route: P.O. Start: 8:16 AM Stop: 8:16 AM Medication: Plavix Amount: 600 mg Route: P.O. I, the attending physician, have reviewed and verified all procedure medications. Yes, all medications given per verbal order History/Risk Factors Hypertension: Yes Dyslipidemia: No Peripheral Arterial Disease (PAD): No Myocardial Infarction (VA): Yes Obesity: Yes Renal Disease: No Tobacco Use: Never Prior Interventions PCI: Yes CABG: No Valve Surgery: No Date of PCI: 06/09/2017 Report Signatures Finalized by Robert Atkinson MD on 12/03/2020 11:48 AM
[2020-11-22] MEDS: diphenhydrAMINE 50 mg Capsule PO (06:34)
--- NOTE | 2020-11-22 07:26 | W.PM.OPSFHP ---
Same Day Surgery H&P Indication for Procedure/HPI DATE OF PROCEDURE: November 22, 2020 CHIEF COMPLAINT/INDICATIONFOR SURGICAL PROCEDURE: Chest pain/abnormal stress test PREOP DIAGNOSIS: Chest pain/abnormal stress test PLANNED PROCEDRUE: Operation Date: 11/22/20 07:00 Proposed Procedures p Left Cardiac Catheterization 49105 R94.39(Left) - Robert Atkinson M.D Possible percutaneous coronary intervention 60-year-old man with past medical history of obesity, coronary artery disease with an NE and intervention in the past, hypertension, sleep apnea and TIAs who has been having exertional chest discomfort and palpitations. He underwent nuclear stress test that was abnormal. Plan for left heart cath with possible percutaneous coronary intervention. He is also getting significant bradycardic episodes ROS CONSTITUTIONAL: No fever chills weight loss or gain or night sweats. [] HEENT: Normocephalic, atraumatic.[] RESPIRATORY: No cough, sputum, hemoptysis or wheezing.[] CARDIOVASCULAR: Has on and off chest discomfort GI: no nausea vomiting diarrhea. 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 [] MUSCULOSKELETAL: No knee or joint pain or rashes. [] Medications/Allergies* Home Medications Medication Instructions Recorded Confirmed Type omega-3 fatty acids 1,000 mg 1,000 mg PO BID 08/23/19 11/22/20 History capsule clopidogrel 75 mg PO DAILY@2100 09/06/20 11/22/20 History docusate sodium 1 - 2 tab PO BID PRN 09/06/20 11/22/20 History metoprolol tartrate 25 mg tablet 12.5 mg PO BID tab 10/15/20 11/22/20 History Allergies/Adverse Reactions Allergy/AdvReac Type Severity Reaction Status Date / Time amoxicillin [From Augmentin] Allergy sick to Verified 11/22/20 06:30 stomach clavulanic acid Allergy sick to Verified 11/22/20 06:30 [From Augmentin] stomach Current Medications: Generic Name Dose Route Start Last Admin Trade Name Freq PRN Reason Stop Dose Admin Sodium Chloride 1,000 mls @ 50 mls/hr 11/22/20 06:00 11/22/20 06:35 Sodium Chloride 0.9% IV 11/23/20 01:59 Not Given .Q20H ONE Pertinent History/Comorbid Conditions* Medical History (Updated 11/10/20 @ 00:00 by ) ASHD (arteriosclerotic heart disease) HTN (hypertension) Myocardial infarction Obesity JORGE ALBERTO (obstructive sleep apnea) TIA (transient ischemic attack) Surgical History (Updated 04/29/20 @ 14:21 by Ronna Lopes DO) S/P PTCA (percutaneous transluminal coronary angioplasty) 2017 Family History (Updated 08/22/19 @ 11:20 by Jenelle Bridges RN) CAD (coronary artery disease) Brother Stroke Father Social History Smoking and tobacco status: never smoked Alcohol intake: never Pertinent Exam Findings alert, oriented x 3, clear to auscultation bilaterally and regular rate & rhythm Conscious Sedation Assessment PATIENT ASSESSED PRIOR TO SEDATION, WITH NO CHANGE NOTED: Yes AIRWAY EVAL/ANESTHESIA PLAN: normal airway, see other exam findings, ASA III, Monitored Anesthesia, Local Anesthesia, Risks, benefits & alternatives of sedation and/or procedure discussed and Patient agrees to continue as planned Recommendations Surgery/Procedure today (Left heart cath with possible percutaneous coronary intervention) Coding Level of Care Code Acute Parquetry Floor Layer for Holger Munoz
--- NOTE | 2020-11-22 08:30 | PC.NURSE ---
notified on clarification of fluid orders. Dr. Atkinson ordered NS at 100ml/hr X 6 hrs post cath.
--- NOTE | 2020-11-22 10:32 | PC.NURSE ---
3ml to Right radial TR band removed. Site asymptomatic.
--- NOTE | 2020-11-22 10:48 | PC.NURSE ---
3ml air removed from right radial TR band. Site asymptomatic. No signs of bleeding or hematoma. Pt verbalized understanding of reportable signs and symptoms.
--- NOTE | 2020-11-22 10:57 | PC.NURSE ---
3ml air removed from TR band. Site asymptomatic, no signs of bleeding or hematoma development. Will continue to monitor.
--- NOTE | 2020-11-22 11:07 | PC.NURSE ---
2ml air removed from TR band. site asymptomatic.
--- NOTE | 2020-11-22 11:15 | PC.NURSE ---
2ml air removed from TR band. site asymptomatic. TR band completely deflated and remains on wrist for monitoring.
--- NOTE | 2020-11-22 11:25 | PC.NURSE ---
TR band removed at this time. Radial pulse 3+. no signs of bleeding or hematoma. Placed 2X2 gauze and coban. will continue to monitor.
--- NOTE | 2020-11-22 12:43 | ECG_ITS ---
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 Measurements Intervals [place] Rate: 72 P: -13 SC: 160 QRS: -33 QRSD: 120 T: -43 QT: 407 QTc: 447 Interpretive Statements SINUS RHYTHM MARKED LEFT AXIS DEVIATION [QRS AXIS < -30] LEFT VENTRICULAR HYPERTROPHY AND ST-T CHANGE [VOLTAGE CRITERIA PLUS ST/T ABNORMALITY] POSSIBLE ANTEROSEPTAL MYOCARDIAL INFARCTION [30 ms Q WAVE IN V1-V4], OF INDETERMINATE AGE Compared to ECG 11/02/2020 16:03:20 Left ventricular hypertrophy now present ST (T wave) deviation now present Intraventricular conduction delay no longer present Myocardial infarct finding still present Electronically Signed On 11-22-2020 16:32:40 CDT by Dotty Lima M.D. [id number]
--- NOTE | 2020-11-22 12:45 | PC.NURSE ---
Chest pain pt reports some mild chest pain and nausea after eating lunch. Chest pain resolved almost immediately and still complains of nausea. EKG ordered and preformed and sent to physician for review. Vital signs obtained, see flowsheet. 4mg zofran given IVP. Pt educated on reportable signs and symptoms.
[2020-11-22] MEDS: ondansetron 2 mg/ML SDV 2 mL 4 MG IVP (12:58)
--- NOTE | 2020-11-22 13:10 | PC.NURSE ---
Dr. Atkinson at bedside to evaluate patient. Verbal orders received to proceed with discharge after post cardiac cath care protocol is complete.
--- NOTE | 2020-11-22 14:23 | PC.NURSE ---
Discharge Pt discharged at this time. Discharge orders and paperwork reviewed with patient, verbalized understanding. Pt denies having any questions about discharge orders. Pt denies pain at discharge. Friend arrived to transport patient home.
== END 2020-11-22 14:25 | disposition home or self-care (01) ==
PROVIDERS: PCP Family Medicine; Visit Provider Internal Medicine
DX: I25.10 Atherosclerotic heart disease of native coronary artery without angina pectoris (principal); R07.9 Chest pain, unspecified; R94.39 Abnormal result of other cardiovascular function study; E66.9 Obesity, unspecified; Z68.38 Body mass index [BMI] 38.0-38.9, adult; I25.2 Old myocardial infarction; I10 Essential (primary) hypertension; Z86.73 Personal history of transient ischemic attack (TIA), and cerebral infarction without residual deficits; G47.33 Obstructive sleep apnea (adult) (pediatric); Z82.49 Family history of ischemic heart disease and other diseases of the circulatory system; Z82.3 Family history of stroke
CPT/HCPCS: 36415; 85347; 93005; 93454; C1725; C1769; C1874; C1887; C1894; C9600; J1644; J2250; J2405; J3010; J3490; J7030; Q0163; Q9967

== ENCOUNTER 2020-12-15 16:19 | Observation (INO) | payer OTHER, SELFPAY ==
[2020-12-15] VITALS (10 sets, daily range): BP systolic 113–144; BP diastolic 68–99; PULSE 0–94; RESP 11–22; TEMP 36.4–36.6; O2SAT 90–97; BMI 37.1; BMI 38.2
--- NOTE | 2020-12-15 16:29 | XRR_ITS ---
PROCEDURE INFORMATION: Exam: XR Chest Exam date and time: 12/15/2020 4:29 PM Age: 60 years old Clinical indication: Pain; Chest pressure; Additional info: Chest pain TECHNIQUE: Imaging protocol: XR of the chest. Views: 1 view. COMPARISON: CR (CHEST, ) 11/02/2020 3:29 PM FINDINGS: Lungs: Unremarkable. No consolidation. Pleural spaces: Unremarkable. No pleural effusion. No pneumothorax. Heart/Mediastinum: Unremarkable. No cardiomegaly. Bones/joints: Unremarkable. XR/XR chest 1V portable [id number] IMPRESSION: No acute findings.
--- NOTE | 2020-12-15 16:30 | ECG_ITS ---
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 Measurements Intervals Allen Rate: 84 P: 7 OK: 198 QRS: -41 QRSD: 138 T: 52 QT: 383 QTc: 454 Interpretive Statements SINUS RHYTHM LEFT AXIS DEVIATION [QRS AXIS < -30] INTRAVENTRICULAR CONDUCTION DELAY [130+ ms QRS DURATION] POSSIBLE LEFT VENTRICULAR HYPERTROPHY [VOLTAGE CRITERIA PLUS LAE OR QRS WIDENING] POSSIBLE ANTEROSEPTAL MYOCARDIAL INFARCTION , OF INDETERMINATE AGE [30 ms Q WAVE IN V1-V4] Compared to ECG 11/22/2020 12:55:20 Intraventricular conduction delay now present ST (T wave) deviation no longer present Myocardial infarct finding still present Electronically Signed On 12-15-2020 19:46:32 CDT by Robert Atkinson M.D. [id number]
[2020-12-15] MEDS: aspirin 325 mg Tablet PO (16:35)
[2020-12-15 16:46] LABS: Basophils # 0.1 10^3/uL (0.0-0.1); Basophils % 0.6 %; Eosinophils # 0.3 10^3/uL (0.0-0.8); Eosinophils % 3.8 %; Hematocrit 50.8 % (42.0-52.0); Hemoglobin 16.7 g/dL (11.7-16.6); Lymphocytes # 1.3 10^3/uL (0.8-4.8); Mean Corpuscular HGB Conc 32.9 g/dL (30.0-36.0); Mean Corpuscular Hemoglobin 29.5 pg (28.0-34.0); Mean Corpuscular Volume 89.8 fl (80-94); Monocytes # 0.8 10^3/uL (0.2-0.9); Monocytes % 9.4 %; Neutrophils # 5.83 10^3/uL (1.8-7.7); Nucleated Red Blood Cells % 0 %; Platelet Count 181 10^3/cmm (130-400); Red Blood Count 5.66 10^6/uL (4.1-5.3); Red Cell Distribution Width 12.4 % (12.1-15.1); White Blood Count 8.3 10^3/uL (4.0-10.0)
[2020-12-15 17:15] LABS: Troponin(5th) Baseline 12 ng/L (0-15)
[2020-12-15 17:16] LABS: Anion Gap 15.1 (5-19); Blood Urea Nitrogen 12 mg/dL (6-20); Calcium 8.5 mg/dL (8.5-10.5); Carbon Dioxide 21 mmol/L (22-29); Chloride 109 mmol/L (98-107); Glomerular Filtration Rate 86.7 mL/min (90-130); Glucose 121 mg/dL (65-115); Osmolality Calculated 293 mOsm/kg (285-295); Potassium 4.1 mmol/L (3.5-5.1); Sodium 141 mmol/L (136-145)
[2020-12-15] MEDS: nitroglycerin 1 gm/inch oint Pkt 0.5 INCH TOPICAL (18:22)
--- NOTE | 2020-12-15 18:42 | ED_ITS ---
HPI - General Adult General: Chief complaint: Chest Pain Stated complaint: CHEST PAINS Time Seen by Provider: 12/15/20 16:29 History of Present Illness: HPI narrative: CC: Chest Pain HPI: This is a [60] yo patient hx of HTN, CAD s/ p stents x 3 (most recently in October/2020), HLD, DM presenting to the ED w/ acute onset intermittent substernal stabbing chest pain x 3 episodes lasting for a few minutes at a time. When patient had the pain for the first time 2 hrs ago, he took nitro with some relief of symptom. Then he developed 2 more episodes of pain. During of these episodes, patient felt extremely light-headed and almost passed out. Pain is not tearing in nature and does not radiate to the back. He decided to drive to the emergency room for an evaluation. Endorse nausea but no vomiting or decreased PO intake. Denies any recent sympathomimetic drug use. Patient denies any cough. Denies palpitations, syncope symptoms. Pain not positional. Norecent immobility, surgery, unilateral leg swelling, or prior PE. Patient denies any orthopnea, paroxysmal nocturnal dyspnea, weight gain, or increased leg swellings. Onset: 2 hrs ago Duration: ongoing for 2 hrs Location: home Severity: moderate Review of Systems Narrative: Constitutional: No fever, no chills. HEENT: No vision changes, no sore throat. CV: +chest pain, no palpitations. PULM: No cough, no dyspnea. GI: No abdominal pain, no N/V/D. : No dysuria, no frequency, no hematuria. MSKEL: No arthralgias, no edema. SKIN: No new rashes, no lesions. NEURO: No headache, no focal weakness. HEME: No easy bleeding or bruising. PSYCH: No change in mood or affect. PFS ED PFSH: Medical History ASHD (arteriosclerotic heart disease) HTN (hypertension) Myocardial infarction Obesity JORGE ALBERTO (obstructive sleep apnea) TIA (transient ischemic attack) Surgical History S/P PTCA (percutaneous transluminal coronary angioplasty) 2018 Family History Father Stroke Brother CAD (coronary artery disease) Social History Alcohol intake: never Physical Exam Narrative: EXAM NARRATIVE: Head: Atraumatic, normocephalic Eyes: PERRL, EOMI, conjunctiva without injection ENT: Throat without erythema, lesions or exudate, MMM NECK: Supple, trachea midline, no JVD LUNGS: LCTA CV: RRR, S1,S2, no murmurs, rubs, gallops. 2+ peripheral pulses in UEs ABDOMEN: Soft, nontender, nondistended, BS x4, no rigidity, no guarding, no rebound EXTREMITY: Normal ROM, no pitting edema, no calf tenderness to palpation SKIN: No rash or erythema NEURO: Awake and alert. No focal motor deficits. PSYCH: Normal mood and affect. Course Vital Signs: Vital signs: Vital Signs Temperature 97.8 F 12/16/20 10:49 Pulse Rate 60 12/16/20 10:49 Respiratory Rate 18 12/16/20 10:49 Blood Pressure 118/73 12/16/20 10:49 Pulse Oximetry 95 12/16/20 10:49 MDM - General Adult MDM Narrative: Medical decision making narrative: 60 yo patient w/ extensive cardiac hx currently on holter monitor presenting to the ED With acute substernal chest pain X 2 hrs with hx of similar prior pain. Currently chest pain free Given History And Exam today I have moderate to high suspicion for ACS/UA/NSTEMI. Today, I have NO suspicion for pneumothorax, pneumonia, pulmonary embolus, tamponade, aortic dissection or other emergent problem as a cause for this presentation. ECG did not show any signs of acute STEMI. Workup: ECG, CXR, CBC, BMP, Troponin EKG showing regular sinus rhythm at HT of [77]. Left axis, LBBB, QRS fragmentations, not meeting Sgarbossa criteria. Intervention: ASA 324mg [5:00pm] On reassessment, the patient is currently chest pain free. S/p ASA. I have attempted to obtain patient's holter monitor but was unsuccessful. Given a high HEART score putting the patient at high risk for MACE Major Adverse Cardiac Event (AMI, PCI, CABG, ) in the next 30 days, the patient will benefit from inpatient admission. Stable for the floor admission at this time as the patient may benefit formal echo evaluation, serial troponins and possible urgent cardiac catheterization. Patient agrees with the plan. Disposition: Inpatient admission Lab Data: Labs: Lab Results 12/15/20 12/15/20 12/15/20 Range/Units 16:39 16:39 16:39 WBC 8.3 (4.0-10.0) 10^3/ uL RBC 5.66 H (4.1-5.3) 10^6/u L Hgb 16.7 H (11.7-16.6) g/dL Hct 50.8 (42.0-52.0) % MCV 89.8 (80-94) fl MCH 29.5 (28.0-34.0) pg MCHC 32.9 (30.0-36.0) g/dL RDW 12.4 (12.1-15.1) % Plt Count 181 (130-400) 10^3/c mm MPV 11.0 H (7.4-10.4) fL Neut % (Auto) 70.0 % Lymph % (Auto) 16.0 % [place] % (Auto) 9.4 % Eos % (Auto) 3.8 % Baso % (Auto) 0.6 % Neut # (Auto) 5.83 (1.8-7.7) 10^3/u L Lymph # (Auto) 1.3 (0.8-4.8) 10^3/u L [place] # (Auto) 0.8 (0.2-0.9) 10^3/u L Eos # (Auto) 0.3 (0.0-0.8) 10^3/u L Baso # (Auto) 0.1 (0.0-0.1) 10^3/u L Nucleated RBC % (a uto) 0 % Nucleated RBCs # 0.0 /100WBC D-Dimer (0-0.59) ug/mIFE U Sodium 141 (136-145) mmol/L Potassium 4.1 (3.5-5.1) mmol/L Chloride 109 H (98-107) mmol/L Carbon Dioxide 21 L (22-29) mmol/L Anion Gap 15.1 (5-19) BUN 12 (6-20) mg/dL Creatinine 0.9 (0.7-1.2) mg/dL GFR Calculation 86.7 L (90-130) mL/min Glucose 121 H (65-115) mg/dL Calculated Osmolal ity 293 (285-295) mOsm/k g Calcium 8.5 (8.5-10.5) mg/dL Troponin T Baselin e 12 (0-15) ng/L Troponin T 120 Min [place] (0-15) ng/L Delta Troponin T (0-10) ABS# NT-Pro-B Natriuret Pep (0-125) pg/mL SARS-CoV-2 Ag (Rap id) (Negative) 12/15/20 12/15/20 12/15/20 Range/Units 16:39 16:39 18:12 WBC (4.0-10.0) 10^3/ uL RBC (4.1-5.3) 10^6/u L Hgb (11.7-16.6) g/dL Hct (42.0-52.0) % MCV (80-94) fl MCH (28.0-34.0) pg MCHC (30.0-36.0) g/dL RDW (12.1-15.1) % Plt Count (130-400) 10^3/c mm MPV (7.4-10.4) fL Neut % (Auto) % Lymph % (Auto) % [place] % (Auto) % Eos % (Auto) % Baso % (Auto) % Neut # (Auto) (1.8-7.7) 10^3/u L Lymph # (Auto) (0.8-4.8) 10^3/u L [place] # (Auto) (0.2-0.9) 10^3/u L Eos # (Auto) (0.0-0.8) 10^3/u L Baso # (Auto) (0.0-0.1) 10^3/u L Nucleated RBC % (a uto) % Nucleated RBCs # /100WBC D-Dimer 0.39 (0-0.59) ug/mIFE U Sodium (136-145) mmol/L Potassium (3.5-5.1) mmol/L Chloride (98-107) mmol/L Carbon Dioxide (22-29) mmol/L Anion Gap (5-19) BUN (6-20) mg/dL Creatinine (0.7-1.2) mg/dL GFR Calculation (90-130) mL/min Glucose (65-115) mg/dL Calculated Osmolal ity (285-295) mOsm/k g Calcium (8.5-10.5) mg/dL Troponin T Baselin e (0-15) ng/L Troponin T 120 Min [place] (0-15) ng/L Delta Troponin T (0-10) ABS# NT-Pro-B Natriuret Pep 487 H (0-125) pg/mL SARS-CoV-2 Ag (Rap id) Negative (Negative) 12/15/20 Range/Units 18:29 WBC (4.0-10.0) 10^3/ uL RBC (4.1-5.3) 10^6/u L Hgb (11.7-16.6) g/dL Hct (42.0-52.0) % MCV (80-94) fl MCH (28.0-34.0) pg MCHC (30.0-36.0) g/dL RDW (12.1-15.1) % Plt Count (130-400) 10^3/c mm MPV (7.4-10.4) fL Neut % (Auto) % Lymph % (Auto) % [place] % (Auto) % Eos % (Auto) % Baso % (Auto) % Neut # (Auto) (1.8-7.7) 10^3/u L Lymph # (Auto) (0.8-4.8) 10^3/u L [place] # (Auto) (0.2-0.9) 10^3/u L Eos # (Auto) (0.0-0.8) 10^3/u L Baso # (Auto) (0.0-0.1) 10^3/u L Nucleated RBC % (a uto) % Nucleated RBCs # /100WBC D-Dimer (0-0.59) ug/mIFE U Sodium (136-145) mmol/L Potassium (3.5-5.1) mmol/L Chloride (98-107) mmol/L Carbon Dioxide (22-29) mmol/L Anion Gap (5-19) BUN (6-20) mg/dL Creatinine (0.7-1.2) mg/dL GFR Calculation (90-130) mL/min Glucose (65-115) mg/dL Calculated Osmolal ity (285-295) mOsm/k g Calcium (8.5-10.5) mg/dL Troponin T Baselin e (0-15) ng/L Troponin T 120 Min [place] 10.53 (0-15) ng/L Delta Troponin T -1.47 L (0-10) ABS# NT-Pro-B Natriuret Pep (0-125) pg/mL SARS-CoV-2 Ag (Rap id) (Negative) Imaging Data^: Other Imaging: Radiologist's impression: [id number] [id number] ReportSigned Patient: Costa Trujillo #: [id number]: 1960Acct#:[id number]/Sex: 60 / MADM Date: 12/15/20Loc: [facility]/Bed:Attending Dr: Ordering Provider/Ordering MD: Isak Lemus MD Date of Service: 12/15/20 Procedure(s): XR chest 1V portable [id number] Accession Number(s): [id number] Report Number: [id number] PROCEDURE INFORMATION: Exam: XR Chest Exam date and time: 12/15/2020 4:29 PM Age: 60 years old Clinical indication: Pain; Chest pressure; Additional info: Chest pain TECHNIQUE: Imaging protocol: XR of the chest. Views: 1 view. COMPARISON: CR (CHEST, ) 11/02/2020 3:29 PM FINDINGS: Lungs: Unremarkable. No consolidation. Pleural spaces: Unremarkable. No pleural effusion. No pneumothorax. Heart/Mediastinum: Unremarkable. No cardiomegaly. Bones/joints: Unremarkable. XR/XR chest 1V portable [id number] IMPRESSION: No acute findings. Dictated By:Rasheed Mcnulty MDSigned By:Rasheed Mcnulty MDSigned Date/Time:12/15/20 1711DD/ 1710 Discharge Plan Discharge Patient Disposition: Admitted As Inpatient Admit Provider: Yulisa Bernabe Clinical Impression: Chest pain, Pre-syncope Condition: Stable Discharge Diet: Cardiac Coding Level of Care Code ED Community Services Coordinator for Chg Fwd
[2020-12-15 18:46] LABS: SARS Covid-2 Antigen Negative (Negative)
[2020-12-15 19:20] LABS: Troponin 5 2HR 10.53 ng/L (0-15)
[2020-12-15 19:21] LABS: Troponin 5 2HR Delta -1.47 ABS# (0-10)
--- NOTE | 2020-12-15 21:54 | PC.NURSE ---
Transfer Note Patient transferred to CSU from ED via stretcher at 2015. Handoff received from ED nurse. Patient oriented to environment and equipment. Covering service notified. Orders reviewed and will continue to monitor. Family and/or claim service representative notified.
--- NOTE | 2020-12-15 22:28 | P.HP_ITS ---
Providers/Chief Complaint Admitting Physician: Yulisa Bernabe MD Primary Care Provider: Ronna Lopes DO Chief Complaint: CHEST PAINS History of Present Illness Costa Trujillo is a 60 year old male with past medical history of obesity, coronary artery disease with an AL and intervention in the past, hypertension, sleep apnea and TIAs who has been having exertional chest discomfort and palpitations. He underwent nuclear stress test that was abnormal recently and then [facility] on 11/26 which showed severe first diagonal stenosis which was treated with balloon angioplasty and drug-eluting stent x1. Hospital course was c/b episodes of bradycardia and also palpitations for which he has a holter monitor. He presented to the ER today with 3 episodes of substernal chest pain along with feeling of light headedness and presyncope. EKG without ST elevation. Baseline troponin 12, 2 hr delta -1.47. No acute findings on CXR. Review of Systems General: Reports: 10 or more systems reviewed and unremarkable except in HPI and below Const: Denies: fever(s), chills or body aches Eyes: Denies: change in vision, blurry vision or photophobia ENMT: Reports: hoarseness; Denies: throat pain, enlarged tonsils, odynophagia or nasal congestion Card: Denies: chest pain, palpitations, irregular heart rhythm, edema, swelling of feet/ankles, lightheadedness, pre-syncope, dyspnea on exertion or orthopnea Resp: Denies: dyspnea, productive cough, non-productive cough, wheezing, stridor, pain on inspiration, change in phlegm color, hemoptysis or chest congestion GI: Denies: abdominal pain, nausea, vomiting, hematemesis, coffee ground emesis, dysphagia, heartburn, diarrhea, constipation, GI cramping, change in stool character, hematochezia or melena : Denies: flank pain, dysuria, urinary frequency, urinary urgency, urinary hesitancy or hematuria Musc: Denies: neck pain, back pain, extremity pain, joint swelling, joint warmth or deformity Neuro: Denies: headache(s), numbness in extremities, weakness in extremities, sensory changes, difficulty walking, frequent falls, dizziness, vertigo, behavioral changes, Slurred speech present or seizure-like activity Psych: Denies: anxiety, depression, suicidal ideation or homicidal ideation Endo: Denies: polyuria, polydipsia, tired all the time, cold intolerance or hot flashes Gerardo/Lymph: Denies: easy bruising or easy bleeding Medications/Allergies Home Medications Medication Instructions Recorded Confirmed Last Taken Type omega-3 fatty acids 1,000 mg 1,000 mg PO BID 08/23/19 12/15/20 12/15/20 History capsule aspirin 81 mg tablet,delayed 81 mg PO DAILY #90 tab 06/14/20 12/15/20 12/14/20 Rx release simvastatin 20 mg tablet 20 mg PO DAILY 90 Days #90 tab 06/14/20 12/15/20 12/14/20 Rx nitroglycerin 0.4 mg sublingual 0.4 mg SUBLINGUAL Q5M PRN #25 tab 08/27/20 12/15/20 12/15/20 Rx tablet clopidogrel 75 mg PO DAILY@2100 09/06/20 12/15/20 12/14/20 History docusate sodium 100 mg PO BID #0 09/06/20 12/15/20 12/15/20 History lisinopril 30 mg tablet 30 mg PO DAILY@1800 #90 tab MDD 10/15/20 12/15/20 12/14/20 Rx SEE PHARMACY COMMENT metoprolol tartrate 25 mg tablet 12.5 mg PO BID tab 10/15/20 12/15/20 12/15/20 History Beet Root 1 tab PO BID 12/15/20 12/15/20 12/15/20 History magnesium 100 mg PO DAILY 12/15/20 12/15/20 12/15/20 History Allergies Allergy/AdvReac Type Severity Reaction Status Date / Time amoxicillin [From Augmentin] Allergy sick to Verified 12/15/20 16:26 stomach clavulanic acid Allergy sick to Verified 12/15/20 16:26 [From Augmentin] stomach PFSH Acute PFSH: Medical History ASHD (arteriosclerotic heart disease) HTN (hypertension) Myocardial infarction Obesity JORGE ALBERTO (obstructive sleep apnea) TIA (transient ischemic attack) Surgical History S/P PTCA (percutaneous transluminal coronary angioplasty) 2018 Family History Father Stroke Brother CAD (coronary artery disease) Social History Alcohol intake: never Vitals/I&O/Wt Last Vital Signs Temp 97.8 F 12/15/20 21:00 Pulse 62 12/15/20 22:00 Resp 16 12/15/20 22:00 BP 144/89 12/15/20 22:00 Pulse Ox 90 12/15/20 22:00 Weight last 48 hrs Weight 153.995 kg Weight 149.685 kg Physical Exam Narrative: EXAM NARRATIVE: General: No acute distress, AO x3 HEENT: PERRLA, pupils bilaterally equal and reactive, pallors not present Chest: Normal vesicular breath sounds, no added sounds, equal good air entry bilaterally CVS: S1-S2 regular, no murmurs, no tachycardia, no gallops, no rubs Abdomen: Soft, nontender, no organomegaly, bowel sounds present Neuro: No focal deficits, no facial deformity, AO x3, power 5/5 in all limbs Data : 12/15/20 16:39 12/15/20 16:39 A&P Assessment and plan (1) Chest pain: Patient with recent history of PTCA with placement of drug-eluting stent earlier this month presenting now with chest pain, left arm numbness and possible episode of presyncope. No acute ST-T segment changes noted on EKG currently. Troponin delta negative at 2 hours. Given her recent significant history will admit to observation and cardiac stepdown unit. Continue to cycle troponins telemtery monitoring Chest x-ray without any acute infiltrate. Check D-dimer to screen for possible PE as an alternate explanation. cardiology consult prn morphine and nitrtrates for pain control Status: Acute Attestations 2 Medical Necessity Statement*: observation admission for above defined care Coding Level of Care Code Acute Director Surgical for Holger Munoz Diagnoses Chest pain R07.9
[2020-12-15 23:00] LABS: D Dimer 0.39 ug/mIFEU (0-0.59)
[2020-12-15 23:25] LABS: NT Pro B Type Natriuretic Pept 487 pg/mL (0-125)
[2020-12-15] MEDS: enoxaparin 40 mg/0.4 mL Syringe SUBCUT (23:37)
[2020-12-15 23:38] LABS: Troponin 5 6HR 11.34 ng/L (0-15)
[2020-12-15] MEDS: lisinopril 20 mg Tablet 30 MG PO (23:38)
[2020-12-15] MEDS: metoprolol tartrate 25 mg Tablet 12.5 MG PO (23:38)
[2020-12-15] MEDS: clopidogrel 75 mg Tablet PO (23:38)
[2020-12-15 23:41] LABS: Troponin 5 6HR Delta -0.66 ng/L (0-12)
[2020-12-16 03:40] VITALS: BP 105/67; PULSE 61; RESP 12; TEMP 36.6; O2SAT 96
[2020-12-16 05:21] VITALS: PULSE 54
--- NOTE | 2020-12-16 06:56 | PC.NURSE ---
Shift Note Frequent safety and comfort rounds continue. Orders and/or nursing care completed as indicated. Patient monitored for response to intervention and treatment(s). Education provided includes lovenox. Patient verbalized understanding. Will continue to monitor.
--- NOTE | 2020-12-16 07:47 | PM.CONSULT ---
Providers/Reason For Consult Consulting Physician/Specialty*: Robert Atkinson MD/ Cardiology Reason for Consult*: Chest pain Requesting Physician: Dr Fritz Attending Physician: Leroy Atkins Primary Care Provider: Ronna Lopes DO History of Present Illness History of Present Illness Costa Trujillo is a 60 year old male with past medical history of obesity, coronary artery disease with an [place] , hypertension, sleep apnea and TIAs who had recent PCI of diagonal artery performed earlier this month presented to the hospital with exertional chest pain and palpitations. He also had lightheadedness and presyncope. He is currently on event monitor that did not reveal any arrhythmias or pauses during the last 24 hours. EKG does not show ischemic changes. Troponins did not trend up. He is chest pain-free now. Review of Systems General: Reports: 10 or more systems reviewed and unremarkable except in HPI and below Const: Denies: fever(s), chills or body aches Eyes: Denies: change in vision, blurry vision or photophobia ENMT: Reports: hoarseness; Denies: throat pain, enlarged tonsils, odynophagia or nasal congestion Card: Denies: chest pain, palpitations, irregular heart rhythm, edema, swelling of feet/ankles, lightheadedness, pre-syncope, dyspnea on exertion or orthopnea Resp: Denies: dyspnea, productive cough, non-productive cough, wheezing, stridor, pain on inspiration, change in phlegm color, hemoptysis or chest congestion GI: Denies: abdominal pain, nausea, vomiting, hematemesis, coffee ground emesis, dysphagia, heartburn, diarrhea, constipation, GI cramping, change in stool character, hematochezia or melena : Denies: flank pain, dysuria, urinary frequency, urinary urgency, urinary hesitancy or hematuria Musc: Denies: neck pain, back pain, extremity pain, joint swelling, joint warmth or deformity Neuro: Denies: headache(s), numbness in extremities, weakness in extremities, sensory changes, difficulty walking, frequent falls, dizziness, vertigo, behavioral changes, Slurred speech present or seizure-like activity Psych: Denies: anxiety, depression, suicidal ideation or homicidal ideation Endo: Denies: polyuria, polydipsia, tired all the time, cold intolerance or hot flashes Gerardo/Lymph: Denies: easy bruising or easy bleeding Meds/Allergies Home Medications and Allergies Home Medications Medication Instructions Recorded Confirmed Last Taken Type omega-3 fatty acids 1,000 mg 1,000 mg PO BID 08/23/19 12/17/20 12/15/20 History capsule aspirin 81 mg tablet,delayed 81 mg PO DAILY #90 tab 06/14/20 12/17/20 12/14/20 Rx release simvastatin 20 mg tablet 20 mg PO DAILY 90 Days #90 tab 06/14/20 12/17/20 12/14/20 Rx nitroglycerin 0.4 mg sublingual 0.4 mg SUBLINGUAL Q5M PRN #25 tab 08/27/20 12/17/20 12/15/20 Rx tablet clopidogrel 75 mg PO DAILY@2100 09/06/20 12/17/20 12/14/20 History docusate sodium 100 mg PO BID #0 09/06/20 12/17/20 12/15/20 History metoprolol tartrate 25 mg tablet 12.5 mg PO BID tab 10/15/20 12/17/20 12/15/20 History Beet Root 1 tab PO BID 12/15/20 12/17/20 12/15/20 History magnesium 100 mg PO DAILY 12/15/20 12/17/20 12/15/20 History lisinopril 30 mg tablet 30 mg PO DAILY@1800 90 Days #90 12/18/20 Unknown Rx tab MDD SEE PHARMACY COMMENT Allergies Allergy/AdvReac Type Severity Reaction Status Date / Time amoxicillin [From Augmentin] Allergy sick to Verified 12/17/20 08:11 stomach clavulanic acid Allergy sick to Verified 12/17/20 08:11 [From Augmentin] stomach Current Medications Current Medications Generic Name Dose Route Start Last Admin Trade Name Freq PRN Reason Stop Dose Admin Enoxaparin Sodium 40 mg 12/15/20 22:45 12/15/20 23:37 Enoxaparin 40 Mg/0.4 Ml Syringe SUBCUT 40 mg Q24H ARLEEN Administration Lisinopril 30 mg 12/15/20 23:30 12/15/20 23:38 Lisinopril 20 Mg Tablet PO 30 mg DAILY@1800 ARLEEN Administration Metoprolol Tartrate 12.5 mg 12/15/20 23:30 12/15/20 23:38 Metoprolol Tartrate 25 Mg Tablet PO 12.5 mg BID ARLEEN Administration PFSH Acute PFSH: Medical History ASHD (arteriosclerotic heart disease) HTN (hypertension) Myocardial infarction Obesity JORGE ALBERTO (obstructive sleep apnea) TIA (transient ischemic attack) Surgical History S/P PTCA (percutaneous transluminal coronary angioplasty) 2018 Family History Father Stroke Brother CAD (coronary artery disease) Social History Smoking and tobacco status: never smoked Alcohol intake: never Vitals/I&O/Wt Last Vital Signs Temp 98 F 12/16/20 03:40 Pulse 54 L 12/16/20 05:21 Resp 12 12/16/20 03:40 BP 105/67 12/16/20 03:40 Pulse Ox 96 12/16/20 03:40 12/15/20 12/16/20 12/16/20 22:59 06:59 14:59 Intake Total 25 / 25 Balance 25 / 25 Weight last 48 hrs Weight 339 lb 8 oz Weight 330 lb Physical Exam Narrative: EXAM NARRATIVE: GENERAL: Patient is alert, awake and oriented x3. [] NECK: No jugular vein distension. [] HEENT: No cyanosis. No icterus. No pallor. [] HEART: Regular S1 and S2. No murmur, rub or gallop. [] LUNGS: Clear to auscultate bilaterally. [] ABDOMEN: Soft, nontender and nondistended. Positive bowel sounds. No guarding, rebound or tenderness. [] CENTRAL NERVOUS SYSTEM: Grossly nonfocal. [] EXTREMITIES: Lower extremities with 1+ edema bilaterally. Pulses palpable in the lower extremities, both dorsalis pedis and posterior tibial. [] A&P Assessment and plan (1) Chest pain: Status: Acute (2) Prediabetes: Status: Acute (3) ASHD (arteriosclerotic heart disease): Status: Acute (4) TIA (transient ischemic attack): Status: Acute (5) HTN (hypertension): Status: Acute Patient's chest pain is atypical. EKG does not show any significant ischemic changes. Event monitor has not revealed arrhythmias. Troponins have not trended up. Patient can be discharged with outpatient cardiology follow-up. Continue aspirin and Plavix secondary to recent stent. Continue statin therapy. Thank you for involving us with care of this patient. Patient can follow up with us as outpatient. Please call with questions. Coding Level of Care Code Acute [facility] Skilled Maintenance Supervisor for Chg Fwd Diagnoses Chest pain R07.9 Prediabetes R73.03 ASHD (arteriosclerotic heart disease) I25.10 TIA (transient ischemic attack) G45.9 HTN (hypertension) I10
[2020-12-16 07:55] VITALS: BP 118/73; PULSE 60; RESP 18; TEMP 36.6; O2SAT 95
--- NOTE | 2020-12-16 08:26 | PM.DCS ---
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 There is no suggestion of acute ischemia on troponin series, EKG. His chest x-ray was unremarkable. D-dimer normal. Rapid COVID-19 negative. He has received flu vaccine series. He is noted to have heart rate down as well as 50s, at home notes occasionally heart rate low as well. 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 Discussed with him if he notices low heart rates to hold his metoprolol. If he becomes lightheaded or presyncopal, persistent low heart rate, recurrence of chest pain he understands to seek medical attention. As per his discussion with cardiology and their evaluation, he is okay to return home as he is currently feeling well, without any symptoms of chest discomfort. He is to follow-up with cardiology in office for reassessment. Physical Exam Const: COMMON NORMALS: no acute distress and patient oriented x3 HENMT: COMMON NORMALS: oropharynx normal Neck/C-Spine: COMMON NORMALS: no JVD Resp: COMMON NORMALS: normal respiratory effort and clear to auscultation bilaterally AUSCULTATION: clear to auscultation bilaterally Cardio: COMMON NORMALS: no JVD, regular rhythm, S1 normal heart sound present, S2 normal heart sound present and No murmurs present (Cardio) RHYTHM: regular rhythm HEART SOUNDS: S1 normal heart sound present and S2 normal heart sound present GI: COMMON NORMALS: Normal to inspection, nondistended, normoactive bowel sounds present, Soft to palpation and non-tender PALPATION: Yes Soft to palpation Extremity: COMMON NORMALS: no joint enlargement and no pedal edema Neuro: COMMON NORMALS: patient oriented x3 and moves all extremities Skin: COMMON NORMALS: no rashes or lesions noted GENERAL SKIN EXAM: no rashes or lesions noted Discharge Data Data Completed and Pending: Completed Studies During Hospitalization Category Date Time Status XR chest 1V denise ble [id number] Stat Exams 12/15/20 16:29 Completed Pending at discharge Category Date Time Status Coronavirus Test [facility] Lab 12/15/20 22:44 Ordered Labs from last 24 hours 12/15/20 12/15/20 12/15/20 23:07 18:29 18:12 WBC RBC Hgb Hct MCV MCH MCHC RDW Plt Count MPV Neut % (Auto) Lymph % (Auto) Craig % (Auto) Eos % (Auto) Baso % (Auto) Neut # (Auto) Lymph # (Auto) Craig # (Auto) Eos # (Auto) Baso # (Auto) Nucleated RBC % (a uto) Nucleated RBCs # D-Dimer Sodium Potassium Chloride Carbon Dioxide Anion Gap BUN Creatinine GFR Calculation Glucose Calculated Osmolal ity Calcium Troponin T Baselin e Troponin T 120 Min jazmin 10.53 Delta Troponin T -1.47 L Troponin T Hi Sens 6Hr 11.34 Troponin T Hi Sens 6Hr Delta -0.66 L NT-Pro-B Natriuret Pep SARS-CoV-2 Ag (Rap id) Negative 12/15/20 12/15/20 12/15/20 16:39 16:39 16:39 WBC RBC Hgb Hct MCV MCH MCHC RDW Plt Count MPV Neut % (Auto) Lymph % (Auto) Craig % (Auto) Eos % (Auto) Baso % (Auto) Neut # (Auto) Lymph # (Auto) Craig # (Auto) Eos # (Auto) Baso # (Auto) Nucleated RBC % (a uto) Nucleated RBCs # D-Dimer 0.39 Sodium Potassium Chloride Carbon Dioxide Anion Gap BUN Creatinine GFR Calculation Glucose Calculated Osmolal ity Calcium Troponin T Baselin e 12 Troponin T 120 Min jazmin Delta Troponin T Troponin T Hi Sens 6Hr Troponin T Hi Sens 6Hr Delta NT-Pro-B Natriuret Pep 487 H SARS-CoV-2 Ag (Rap id) 12/15/20 12/15/20 16:39 16:39 WBC 8.3 RBC 5.66 H Hgb 16.7 H Hct 50.8 MCV 89.8 MCH 29.5 MCHC 32.9 RDW 12.4 Plt Count 181 MPV 11.0 H Neut % (Auto) 70.0 Lymph % (Auto) 16.0 Craig % (Auto) 9.4 Eos % (Auto) 3.8 Baso % (Auto) 0.6 Neut # (Auto) 5.83 Lymph # (Auto) 1.3 Craig # (Auto) 0.8 Eos # (Auto) 0.3 Baso # (Auto) 0.1 Nucleated RBC % (a uto) 0 Nucleated RBCs # 0.0 D-Dimer Sodium 141 Potassium 4.1 Chloride 109 H Carbon Dioxide 21 L Anion Gap 15.1 BUN 12 Creatinine 0.9 GFR Calculation 86.7 L Glucose 121 H Calculated Osmolal ity 293 Calcium 8.5 Troponin T Baselin e Troponin T 120 Min jazmin Delta Troponin T Troponin T Hi Sens 6Hr Troponin T Hi Sens 6Hr Delta NT-Pro-B Natriuret Pep SARS-CoV-2 Ag (Rap id) Vitals: Last Vital Signs Temp 97.8 F 12/16/20 07:55 Pulse 60 12/16/20 07:55 Resp 18 12/16/20 07:55 BP 118/73 12/16/20 07:55 Pulse Ox 95 12/16/20 07:55 Discharge Plan Discharge Patient Disposition: Home Condition: Stable Prescriptions: Continued omega-3 fatty acids [Fish Oil Concentrate] 1,000 mg capsule 1,000 mg PO BID RF: 0 nitroglycerin 0.4 mg tablet, sublingual 0.4 mg SUBLINGUAL Q5M PRN (Reason: chest pain) Qty: 25 RF: 3 metoprolol tartrate 25 mg tablet 12.5 mg PO BID RF: 0 lisinopril 30 mg tablet 30 mg PO DAILY@1800 MDD SEE PHARMACY COMMENT Qty: 90 RF: 0 aspirin 81 mg tablet,delayed release (DR/EC) 81 mg PO DAILY Qty: 90 RF: 3 simvastatin 20 mg tablet 20 mg PO DAILY 90 Days Qty: 90 RF: 3 docusate sodium 100 mg Capsule 100 mg PO BID Qty: 0 RF: 0 clopidogrel 75 mg tablet 75 mg PO DAILY@2100 RF: 0 magnesium 100 mg Capsule 100 mg PO DAILY RF: 0 Beet Root 1 tab PO BID RF: 0 Discharge Orders: Discharge Order (Routine); Ordered 12/16/20 Ordered By: Leroy Atkins Referrals: Robert Atkinson M.D [Physician] - 12/24/20 Ronna Lopes DO [Primary Care Provider] - 4-7 days Discharge Diet: Cardiac Activity Restrictions/Additional Instructions: Please continue to monitor your heart rate at home. If your heart rate is below 60, please do not take metoprolol. In case it persistently stays in the 30s or below or in case you get lightheaded or dizzy, please sit down or lie down immediately. Call 911. Discharge Attestations Time Spent in Discharge Care*: greater than 30 min Quality Metrics Clinical Quality Measures During this hospital stay, did patient experience: None Coding Level of Care Code Acute g FW VLADISLAV note Diagnoses Chest pain R07.9
--- NOTE | 2020-12-16 08:28 | PC.CHAP ---
Pastoral Care Encounter/Spiritual Assessment Type of Contact [] Declined patrol supervisor visit [] Patient/Family/Request visit [] Outpatient visit [] Follow-up visit [] Physician referral [] Code/Alert [x] Routine visit [] Staff referral [] Actively dying [] Patient sleeping [] Family support [] [x] Out of room [] Palliative care [] [] Receiving care in room [] Pre-surgical visit [] Trauma [] Long length of stay [] ICU visit [] Other: Relational/Emotional Strength [] Patient feels connected with others/family/visitors/staff [] Distress [] Loneliness/isolation [] Abandonment Spirituality of Patient [] Person of [place] [] Attends Yazidism of their [place] [] Believes in Prayer [] Reads Bible or Roman Catholic materials [] There are Spiritual issues to be addressed [place] Interventions [x] Prayer [] Active listening [] Non-anxious presence [] Spiritual/emotional support [] Crisis/trauma care [] Spiritual counseling [] Bereavement support [] Provided bereavement packet [] Provided Bible/devotional materials [] Provided toy/stuffed animal, coloring book to patient or family member [] Provided Communion [] Anointing/[place] [] Salvation [x] Completed spiritual assessment [] Other: Impact on Illness or Injury [] Angry [] Fearful [] Anxious [] Often cries [] Exhaustion [] Unable to work [] Unable to attend judaism [] Unable to walk/stand [] Unable to read [] Unable to drive [] Unable to eat/drink [] Unable to sleep [] Unable to be with family [] Patient intubated [] Other: Summary Time spent with patient
[2020-12-16] MEDS: pantoprazole DR 40 mg Tablet PO (08:35)
[2020-12-16] MEDS: atorvastatin 40 mg Tablet 20 MG PO (08:35)
[2020-12-16] MEDS: aspirin 81 mg EC Tablet PO (08:35)
[2020-12-16] MEDS: metoprolol tartrate 25 mg Tablet 12.5 MG PO (08:36)
[2020-12-16] MEDS: omega-3 fatty acids 1,000 mg Capsule 1000 MG PO (08:36)
[2020-12-16 09:55] VITALS: BP 118/73; PULSE 60; RESP 18; TEMP 36.6; O2SAT 95
[2020-12-16 10:49] VITALS: BP 118/73; PULSE 60; RESP 18; TEMP 36.6; O2SAT 95
--- NOTE | 2020-12-16 10:50 | PC.NURSE ---
Discharge Note Patient discharged to home via wheelchair accompanied by nurse. Discharge instructions reviewed with patient and/or provider relations representative. Mobile pharmacy medications and/or prescriptions provided. Belongings/home medications returned.
--- NOTE | 2020-12-18 09:53 | PC.SOCIAL ---
discharge follow up call made to patient. patient had no new medications. Had follow up appointment with yesterday and has an appointment with Dr. Atkinson.
== END 2020-12-16 10:30 | disposition home or self-care (01) ==
LOC: ER 19:05 → CSU 12-16 02:20
PROVIDERS: Student in an Organized Health Care Education/Training Program; Admitting Provider Internal Medicine; Emergency Provider Emergency Medicine; PCP Family Medicine; Visit Provider Internal Medicine
DX: R07.9 Chest pain, unspecified (principal); Z95.5 Presence of coronary angioplasty implant and graft; I10 Essential (primary) hypertension; E66.9 Obesity, unspecified; Z68.38 Body mass index [BMI] 38.0-38.9, adult; G47.30 Sleep apnea, unspecified; Z86.73 Personal history of transient ischemic attack (TIA), and cerebral infarction without residual deficits; Z79.82 Long term (current) use of aspirin; I25.2 Old myocardial infarction; Z82.49 Family history of ischemic heart disease and other diseases of the circulatory system; Z82.3 Family history of stroke; R73.03 Prediabetes
CPT/HCPCS: 71045; 80048; 83880; 84484; 85025; 85378; 87426; 93005; 96372; 99285; G0378; J1650

== ENCOUNTER → 2020-12-17 08:56 | Outpatient (BNVA) | payer OTHER, SELFPAY | PROVIDERS: PCP Family Medicine; Visit Provider Family Medicine | DX: I25.10 Atherosclerotic heart disease of native coronary artery without angina pectoris (principal) | CPT/HCPCS: 80053; 80061 ==

== ENCOUNTER 2020-12-31 13:35 | Outpatient (RCR) | payer OTHER, SELFPAY | END 2021-01-16 23:59 | disposition home or self-care (01) | LOC: CR 13:35 | PROVIDERS: PCP Family Medicine; Referring Provider Internal Medicine Cardiovascular Disease; Visit Provider Internal Medicine Cardiovascular Disease | DX: Z95.1 Presence of aortocoronary bypass graft (principal) | CPT/HCPCS: 93798 ==

== ENCOUNTER 2021-01-14 21:56 | Emergency (ER) | payer OTHER, SELFPAY ==
[2021-01-14 23:07] VITALS: BP 131/77; PULSE 65; RESP 18; TEMP 36.8; O2SAT 97; BMI 25.9
--- NOTE | 2021-01-14 23:41 | CTR_ITS ---
PROCEDURE INFORMATION: Exam: CT Head Without Contrast Exam date and time: 01/14/2021 11:41 PM Age: 60 years old Clinical indication: Visual disturbance; Patient HX: Onset of blurred vision tonight. History of TIA. ; Additional info: Evaluate for pathologies TECHNIQUE: Imaging protocol: Computed tomography of the head without contrast. Radiation optimization: All CT scans at this facility use at least one of these dose optimization techniques: automated exposure control; mA and/or kV adjustment per patient size (includes targeted exams where dose is matched to clinical indication); or iterative reconstruction. COMPARISON: CT head wo con* [id number] 10/09/2020 11:18 PM RADIATION DOSE METRICS: Total DLP (mGy-cm): 881.27 FINDINGS: Brain: Normal. No hemorrhage. Unremarkable white matter. No mass effect. Cerebral ventricles: No ventriculomegaly. Paranasal sinuses: Visualized sinuses are unremarkable. No fluid levels. Mastoid air cells: Visualized mastoid air cells are well aerated. Bones/joints: Unremarkable. No acute fracture. Soft tissues: Unremarkable. CT/CT head wo con* [id number] IMPRESSION: Negative for intracranial hemorrhage or mass effect. Radiation Dose CTDIVOL = (mGy): DLP = 881.27 (mGy-cm)
[2021-01-14 23:47] LABS: Basophils # 0.1 10^3/uL (0.0-0.1); Basophils % 0.8 %; Eosinophils # 0.5 10^3/uL (0.0-0.8); Eosinophils % 6.3 %; Hematocrit 49.7 % (42.0-52.0); Hemoglobin 16.4 g/dL (11.7-16.6); Lymphocytes # 1.4 10^3/uL (0.8-4.8); Lymphocytes % 16.9 %; Mean Corpuscular Volume 87.8 fl (80-94); Mean Platelet Volume 11.1 fL (7.4-10.4); Monocytes # 0.7 10^3/uL (0.2-0.9); Monocytes % 7.8 %; Neutrophils # 5.63 10^3/uL (1.8-7.7); Neutrophils % 67.8 %; Nucleated Red Blood Cells % 0 %; Platelet Count 183 10^3/cmm (130-400); Red Blood Count 5.66 10^6/uL (4.1-5.3); Red Cell Distribution Width 12.1 % (12.1-15.1); White Blood Count 8.3 10^3/uL (4.0-10.0)
--- NOTE | 2021-01-14 23:48 | PC.NURSE ---
Visual acuity performed. Results: L eye 20/40. R eye 20/40. Pt reports it looks like I am looking through a fog. notified.
[2021-01-14 23:55] LABS: Anion Gap 14.7 (5-19); Blood Urea Nitrogen 11 mg/dL (6-20); Calcium 8.6 mg/dL (8.5-10.5); Carbon Dioxide 21 mmol/L (22-29); Chloride 105 mmol/L (98-107); Glomerular Filtration Rate 115.8 mL/min (90-130); Glucose 90 mg/dL (65-115); Osmolality Calculated 283 mOsm/kg (285-295); Potassium 3.7 mmol/L (3.5-5.1); Sodium 137 mmol/L (136-145)
--- NOTE | 2021-01-15 00:27 | ED_ITS ---
HPI - General Adult General: Chief complaint: Neuro Symptoms/Deficit Stated complaint: blurry vision Time Seen by Provider: 01/14/21 22:20 History of Present Illness: HPI narrative: Patient is a 60-year-old male history of hypertension presents emergency room with sudden onset of blurriness in both of his eyes around 8 PM. Patient denies any weakness, facial droop, hoarseness of voice, diplopia, eye pain, sudden visual blindness, floaters, curtain falling sensation at this time. Patient denies any difficulty moving his eyes. Presents the emergency room for evaluation. Patient also denies any cough, runny nose, sore throat, fever/chills, abdominal complaints, complaints, chest pain, shortness of breath, palpitation. Onset: 2 hrs ago Duration:2 hrs Location:home Severity:moderate Review of Systems Narrative: Constitutional: No fever, no chills. HEENT: +b/l visual blurriness CV: No chest pain, no palpitations PULM: no cough, no dyspnea. GI: No abdominal pain, no N/V/D. : No dysuria MSKEL: No muscle pain SKIN: No new rashes, no lesions. NEURO: No headache, no focal weakness. HEME: No visible bruises PSYCH: Normal mood PFSH ED PFSH: Medical History ASHD (arteriosclerotic heart disease) HTN (hypertension) Myocardial infarction Obesity JORGE ALBERTO (obstructive sleep apnea) TIA (transient ischemic attack) Surgical History S/P PTCA (percutaneous transluminal coronary angioplasty) 2018 Family History Father Stroke Brother CAD (coronary artery disease) Social History Smoking and tobacco status: never smoked Alcohol intake: never Physical Exam 2 Narrative: EXAM NARRATIVE: Head: Atraumatic Eyes: PERRL, conjunctiva without injection 20/40 b/l, EOMI intact ENT: Mucous membrane moist NECK: Supple, ROM intact LUNGS: LCTAB, no crackles/rhonchi CV: RRR ABDOMEN: Soft, nontender in all quadrants EXTREMITY: Normal ROM SKIN: No rash or erythema NEURO: Awake, alert, and oriented to self, year, month, location, and situation.? Following simple axial and appendicular commands.? Has appropriate fund of knowledge, comprehension, and insight.? Able to recall and understands pertinent aspects of medical history and current treatment status.? ? Language? Speech is fluent without word-finding difficulties.? Intact naming, expression, clinic receptionist, and repetition.? ? Cranial nerves? 2,3,4,6: PERRL, EOMI with no nystagmus. 5: Intact sensation to light touch, symmetric? 7: Smile symmetrical, no facial droop.? 8: Hearing grossly intact.? 9,10: Normal palate movement.? 11: Normal strength in trapezius bilaterally 12: Tongue protrudes midline.? ? Motor examination? Normal bulk & tone. Strength as follows (R/L): Delts (5/5), Biceps (5/5), Triceps (5/5), Wrist ext (5/5), hip flexors (5/5), plantarflexors (5/5), dorsiflexors (5/5). ? Sensation? Light Touch: Grossly intact and equal in upper and lower extremities bilaterally? Romberg: Negative.? Distal joint position sense intact ? Coordination? Zdmipe-ic-gicc-finger movements intact without dysmetria or past-pointing.? Rapid fingertaps: preserved amplitude without decriment.? No tremor, myoclonus or truncal ataxia.? ? Gait/stance? Steady, normal narrow base gait with appropriate arm swing and turning.? Tandem gait without hesitation or loss of balance. PSYCH: Normal mood and affect Course Vital Signs: Vital signs: Vital Signs Temperature 98.2 F 01/14/21 23:07 Pulse Rate 62 01/15/21 01:26 Respiratory Rate 5 L 01/15/21 01:26 Blood Pressure 134/79 01/15/21 01:26 Pulse Oximetry 97 01/14/21 23:07 MDM - General Adult MDM Narrative: Medical decision making narrative: 52-year-old male who presents emergency room for evaluation of bilateral blurriness which started at 8 PM. On exam, patient is hemodynamically stable without any focal signs of neurological deficits. Bedside eye exam showed 20/40 bilaterally. Patient denies any diplopia, eye pain, proptosis, visual field defect, floaters, foreign sensation. Brain is negative for any acute intracranial findings. Bedside ultrasound did not show any signs of retinal detachment, vitreous hemorrhage, vitreous detachment, or papilledema. Limited ability to perform funduscopic exam without dilatation. Given concerns for hypertensive retinopathy diseases, patient was given urgent follow-up with Dr. Go Hope tomorrow in the office. I have attempted to reach Dr. Go Hope from Opthalmology however was unsuccessful x 3 times. I have given patient follow up with our corrections caseworker to be seen by our outpatient Dr. Go Hope. Patient aware of a call from our corrections caseworker to schedule for appointment(s) and verbalizes understanding of the importance of following up. Disposition: Discharge. Patient is given return precautions for any worsening visual changes, visual field deficit, crinkling sensation, floaters, diplopia, or any new neurological complaints. Lab Data: Labs: Lab Results 01/14/21 01/14/21 22:52 22:52 WBC 8.3 10^3/uL 10^3/ uL (4.0-10.0) RBC 5.66 10^6/uL H 10 ^6/uL (4.1-5.3) Hgb 16.4 g/dL g/dL (11.7-16.6) Hct 49.7 % % (42.0-52.0) MCV 87.8 fl fl (80-94) MCH 29.0 pg pg (28.0-34.0) MCHC 33.0 g/dL g/dL (30.0-36.0) RDW 12.1 % % (12.1-15.1) Plt Count 183 10^3/cmm 10^3 /cmm (130-400) MPV 11.1 fL H fL (7.4-10.4) Neut % (Auto) 67.8 % % Lymph % (Auto) 16.9 % % Leon % (Auto) 7.8 % % Eos % (Auto) 6.3 % % Baso % (Auto) 0.8 % % Neut # (Auto) 5.63 10^3/uL 10^3 /uL (1.8-7.7) Lymph # (Auto) 1.4 10^3/uL 10^3/ uL (0.8-4.8) Leon # (Auto) 0.7 10^3/uL 10^3/ uL (0.2-0.9) Eos # (Auto) 0.5 10^3/uL 10^3/ uL (0.0-0.8) Baso # (Auto) 0.1 10^3/uL 10^3/ uL (0.0-0.1) Nucleated RBC % (a uto) 0 % % Nucleated RBCs # 0.0 /100WBC /100W BC Sodium 137 mmol/L mmol/L (136-145) Potassium 3.7 mmol/L mmol/L (3.5-5.1) Chloride 105 mmol/L mmol/L (98-107) Carbon Dioxide 21 mmol/L L mmol/ L (22-29) Anion Gap 14.7 (5-19) BUN 11 mg/dL mg/dL (6-20) Creatinine 0.7 mg/dL mg/dL (0.7-1.2) GFR Calculation 115.8 mL/min mL/m in (90-130) Glucose 90 mg/dL mg/dL (65-115) Calculated Osmolal ity 283 mOsm/kg L mOs m/kg (285-295) Calcium 8.6 mg/dL mg/dL (8.5-10.5) Imaging Data^: Other Imaging: Radiologist's impression: [address] [id number] Scan ReportSigned Patient: Costa Trujillo #: [id number]: 1960Acct#:[id number]/Sex: 60 / MADM Date: 01/14/21Loc: ERRoom/Bed:Attending Dr: Ordering Provider/Ordering MD: Isak Lemus MD Date of Service: 01/14/21 Procedure(s): CT head wo con* [id number] Accession Number(s): [id number] Report Number: [id number] PROCEDURE INFORMATION: Exam: CT Head Without Contrast Exam date and time: 01/14/2021 11:41 PM Age: 60 years old Clinical indication: Visual disturbance; Patient HX: Onset of blurred vision tonight. History of TIA. ; Additional info: Evaluate for pathologies TECHNIQUE: Imaging protocol: Computed tomography of the head without contrast. Radiation optimization: All CT scans at this facility use at least one of these dose optimization techniques: automated exposure control; mA and/or kV adjustment per patient size (includes targeted exams where dose is matched to clinical indication); or iterative reconstruction. COMPARISON: CT head wo con* [id number] 10/09/2020 11:18 PM RADIATION DOSE METRICS: Total DLP (mGy-cm): 881.27 FINDINGS: Brain: Normal. No hemorrhage. Unremarkable white matter. No mass effect. Cerebral ventricles: No ventriculomegaly. Paranasal sinuses: Visualized sinuses are unremarkable. No fluid levels. Mastoid air cells: Visualized mastoid air cells are well aerated. Bones/joints: Unremarkable. No acute fracture. Soft tissues: Unremarkable. CT/CT head wo con* [id number] IMPRESSION: Negative for intracranial hemorrhage or mass effect. Radiation Dose CTDIVOL = (mGy): DLP = 881.27 (mGy-cm) Dictated By:Tez Gautam MDSigned By:Tez Gautam MDSigned Date/Time:01/15/21 0034DD/ 0033 Discharge Plan Discharge Patient Disposition: Home Clinical Impression: Visual blurriness Condition: Stable Prescriptions: No Action omega-3 fatty acids [Fish Oil Concentrate] 1,000 mg capsule 1,000 mg PO BID RF: 0 nitroglycerin 0.4 mg tablet, sublingual 0.4 mg SUBLINGUAL Q5M PRN (Reason: chest pain) Qty: 25 RF: 3 metoprolol tartrate 25 mg tablet 12.5 mg PO BID RF: 0 aspirin 81 mg tablet,delayed release (DR/EC) 81 mg PO DAILY Qty: 90 RF: 3 simvastatin 20 mg tablet 20 mg PO DAILY 90 Days Qty: 90 RF: 3 lisinopril 30 mg tablet 30 mg PO DAILY@1800 MDD SEE PHARMACY COMMENT 90 Days Qty: 90 RF: 1 docusate sodium 100 mg Capsule 100 mg PO BID Qty: 0 RF: 0 clopidogrel 75 mg tablet 75 mg PO DAILY@2100 RF: 0 magnesium 100 mg Capsule 100 mg PO DAILY RF: 0 Beet Root 1 tab PO BID RF: 0 Discharge Orders: Discharge ED (Routine); Ordered 01/15/21 Ordered By: Isak Lemus Referrals: Lambert,Ronna, DO [Primary Care Provider] - Discharge Diet: Advance as tolerated Discharge Activity: Resume usual activity Activity Restrictions/Additional Instructions: Please follow-up with Dr. Hope tomorrow morning for evaluation of your eye blurriness. Come back to the emergency room you have any eye blindness, any other visual defect, or any new or concerning complaints. Coding Level of Care Code ED Drum Reel Cutter for Holger Munoz
[2021-01-15 01:26] VITALS: BP 134/79; PULSE 62; RESP 5
--- NOTE | 2021-01-15 10:13 | DCPLANNER ---
manager heart failure had message to schedule a follow up appointment for patient with Dr. Hope. manager heart failure called patient and he has an appointment scheduled with Dr. Hope for later today.
== END 2021-01-15 01:28 | disposition home or self-care (01) ==
PROVIDERS: Emergency Provider Emergency Medicine; PCP Family Medicine
DX: H53.8 Other visual disturbances (principal); Z79.02 Long term (current) use of antithrombotics/antiplatelets; I10 Essential (primary) hypertension; I25.2 Old myocardial infarction; Z86.73 Personal history of transient ischemic attack (TIA), and cerebral infarction without residual deficits
CPT/HCPCS: 70450; 80048; 85025; 99283

== ENCOUNTER 2021-01-17 08:17 | Outpatient (RCR) | payer OTHER, SELFPAY | END 2021-02-16 23:59 | disposition home or self-care (01) | LOC: CR 08:17 | PROVIDERS: PCP Family Medicine; Referring Provider Internal Medicine Cardiovascular Disease; Visit Provider Internal Medicine Cardiovascular Disease | DX: Z95.1 Presence of aortocoronary bypass graft (principal) | CPT/HCPCS: 93798 ==

== ENCOUNTER 2021-02-18 11:38 | Outpatient (RCR) | payer OTHER, SELFPAY | END 2021-03-18 23:59 | disposition home or self-care (01) | LOC: CR 11:38 | PROVIDERS: PCP Family Medicine; Referring Provider Internal Medicine Cardiovascular Disease; Visit Provider Internal Medicine Cardiovascular Disease | DX: Z95.1 Presence of aortocoronary bypass graft (principal) | CPT/HCPCS: 93798 ==

== ENCOUNTER 2021-03-19 09:45 | Outpatient (RCR) | payer OTHER, SELFPAY | END 2021-04-18 23:59 | disposition home or self-care (01) | LOC: CR 09:45 | PROVIDERS: PCP Family Medicine; Referring Provider Internal Medicine Cardiovascular Disease; Visit Provider Internal Medicine Cardiovascular Disease | DX: Z95.1 Presence of aortocoronary bypass graft (principal) | CPT/HCPCS: 93798 ==

== ENCOUNTER 2021-03-24 18:33 | Emergency (ER) | payer OTHER, SELFPAY ==
[2021-03-24 19:08] VITALS: BP 159/95; PULSE 68; RESP 16; TEMP 36.7; O2SAT 97
--- NOTE | 2021-03-24 20:43 | ED_ITS ---
HPI - Wound/Laceration General: Chief Complaint: Wound/Laceration Stated Complaint: Tooth Pulled wont stop Bleeding Time Seen by Provider: 03/24/21 20:40 Source: patient Mode of arrival: ambulatory Limitations: no limitations History of Present Illness: HPI narrative: 60-year-old male had a right upper molar pulled today at 2:00. He states he has had bleeding since then. He s tates it is bleeding heavier earlier and since slowed to almost stopped currently he has a gauze in place and she has no bleeding at this time he states he is concerned as he is on Plavix and aspirin denies any pain denies any worsening proving factors he states he had pressure on it did place a tea bag on it. Denies any lightheadedness. Associated symptoms: Denies chills, fever(s), nausea or vomiting Review of Systems Const: Denies: fever(s), chills, body aches or change in appetite Eyes: Denies: blurry vision or eye discomfort ENMT: Denies: throat pain or dental pain Card: Denies: chest pain Resp: Denies: dyspnea GI: Denies: abdominal pain, nausea, vomiting or diarrhea : Denies: dysuria Musc: Denies: neck pain or back pain Skin/Breast: Denies: rash Neuro: Denies: headache(s) Psych: Denies: depression Gerardo/Lymph: Denies: easy bruising All/Imm: Denies: urticaria PFSH ED PFSH: Medical History ASHD (arteriosclerotic heart disease) HTN (hypertension) Myocardial infarction Obesity JORGE ALBERTO (obstructive sleep apnea) TIA (transient ischemic attack) Surgical History S/P PTCA (percutaneous transluminal coronary angioplasty) 2018 Family History Father Stroke Brother CAD (coronary artery disease) Social History Smoking and tobacco status: never smoked Alcohol intake: never Physical Exam Const: COMMON NORMALS: no acute distress, patient oriented x3 and healthy appearing HENMT: COMMON NORMALS: normocephalic and atraumatic HEAD & SCALP: normocephalic and atraumatic OTHER: Clot formed on back right upper molar with no obvious bleeding at this time Eye: COMMON NORMALS: Equal, round and reactive pupils present and EOMs intact bilaterally PUPIL: Yes Equal, round and reactive pupils present Neck/C-Spine: COMMON NORMALS: full ROM and supple Chest: COMMONS NORMALS: normal inspection of the chest and normal palpation of entire chest wall Resp: COMMON NORMALS: normal respiratory effort, No retractions, No use of accessory muscles and clear to auscultation bilaterally AUSCULTATION: clear to auscultation bilaterally Cardio: COMMON NORMALS: regular rate, regular rhythm and No murmurs present (Cardio) RATE: regular rate RHYTHM: regular rhythm GI: COMMON NORMALS: Normal to inspection, nondistended, normoactive bowel sounds present, Soft to palpation, non-tender and no masses PALPATION: Yes S oft to palpation Extremity: COMMON NORMALS: normal to inspection and full ROM Neuro: COMMON NORMALS: patient oriented x3, moves all extremities and no focal motor deficits Psych: COMMON NORMALS: mental status grossly normal, Normal thought process present and cooperative THOUGHT PROCESS: Normal thought process present Skin: COMMON NORMALS: no rashes or lesions noted and no wounds GENERAL SKIN EXAM: no rashes or lesions noted Course Vital Signs: Vital signs: Vital Signs Temperature 98.1 F 03/24/21 19:08 Pulse Rate 68 03/24/21 19:08 Respiratory Rate 16 03/24/21 19:08 Blood Pressure 159/95 03/24/21 19:08 Pulse Oximetry 97 03/24/21 19:08 MDM - Wound/Laceration MDM Narrative: Medical decision making narrative: Patient presents with bleeding post procedure is stopped at this time is continue to place pressure and follow-up with his dentist return if bleeding worsens he understands agrees to plan. Discharge Plan Discharge Patient Disposition: Home Clinical Impression: Surgical wound hemorrhage after dental procedure Condition: Stable Prescriptions: No Action omega-3 fatty acids [Fish Oil Concentrate] 1,000 mg capsule 1,000 mg PO BID RF: 0 nitroglycerin 0.4 mg tablet, sublingual 0.4 mg SUBLINGUAL Q5M PRN (Reason: chest pain) Qty: 25 RF: 3 metoprolol tartrate 25 mg tablet 12.5 mg PO BID RF: 0 magnesium 250 mg tablet 250 mg PO DAILY RF: 0 aspirin 81 mg tablet,delayed release (DR/EC) 81 mg PO DAILY Qty: 90 RF: 3 simvastatin 20 mg tablet 20 mg PO DAILY 90 Days Qty: 90 RF: 3 lisinopril 30 mg tablet 30 mg PO DAILY@1800 MDD SEE PHARMACY COMMENT 90 Days Qty: 90 RF: 1 clopidogrel 75 mg tablet 75 mg PO DAILY@2100 RF: 0 docusate sodium 100 mg capsule 100 mg PO DAILY Qty: 0 RF: 0 Beet Root 1 tab PO BID RF: 0 Discharge Orders: Discharge ED (Routine); Ordered 03/24/21 Ordered By: Cynthia Esposito Referrals: Ronna Lopes DO [Primary Care Provider] - Discharge Diet: Advance as tolerated Discharge Activity: Resume usual activity Patient Instructions: Mouth Care (ED) Coding Level of Care Code ED Make Up Arranger for Holger Munoz
== END 2021-03-24 20:53 | disposition home or self-care (01) ==
PROVIDERS: Emergency Provider Emergency Medicine; PCP Family Medicine
DX: K91.840 Postprocedural hemorrhage of a digestive system organ or structure following a digestive system procedure (principal); Z79.02 Long term (current) use of antithrombotics/antiplatelets; Z79.82 Long term (current) use of aspirin; I10 Essential (primary) hypertension; I25.2 Old myocardial infarction; Z86.73 Personal history of transient ischemic attack (TIA), and cerebral infarction without residual deficits
CPT/HCPCS: 99282

== ENCOUNTER 2021-04-03 12:00 | Outpatient (CLI) | payer OTHER, SELFPAY | END 2021-04-03 20:01 | disposition home or self-care (01) | LOC: SLEEP 04-14 13:46 | PROVIDERS: PCP Family Medicine; Visit Provider Family Medicine | DX: Z86.69 Personal history of other diseases of the nervous system and sense organs (principal) | CPT/HCPCS: G0399 ==

== ENCOUNTER 2021-04-22 09:00 | Emergency (ER) | payer OTHER, SELFPAY ==
[2021-04-22 09:24] VITALS: BP 111/76; PULSE 90; RESP 18; TEMP 37.2; O2SAT 95; BMI 36.0
--- NOTE | 2021-04-22 09:33 | ED_ITS ---
HPI - COVID General: Chief Complaint: COVID symptoms Stated Complaint: dizzy, muscle aches, n/v/d Time Seen by Provider: 04/22/21 09:33 Triage information: No fever, cough or shortness of breath . No known COVID + exposure last 14 days History of Present Illness: HPI Narrative: Patient states he got dizzy while taking shower this morning and is kind of felt bad since. Said he vomited x1. Denies fever chills sore throat headache or muscle aches. Said does feel nauseated with that one episode of vomiting and feels better laying down. Prior covid testing: yes, results known (Negative x2 on 12-15 and ) COVID 19 common symptoms: positive nausea and vomiting; negative fever(s), chills, non-productive cough, productive cough, dyspnea, body aches, headache(s), throat pain or nasal congestion COVID 19 other sytmptoms: negative chest pain Onset (ago): hour(s) Severity: mild Pertinent comorbid conditions: hypertension and heart disease Treatment prior to arrival: none COVID Results: SARS-CoV-2 Antigen (Rapid) Negative (Negative) 04/22/21 12:26 04/22/21 Nasal/Oral Coronavirus 2019 PCR Not detected 11/18/20 09:39 11/18/20 Review of Systems Narrative: Patient is fully vaccinated Const: Denies: fever(s), chills or body aches Eyes: Denies: change in vision or blurry vision ENMT: Denies: throat pain or nasal congestion Card: Denies: chest pain or dyspnea on exertion Resp: Denies: dyspnea, productive cough or non-productive cough GI: Reports: nausea and vomiting : Denies: difficulty urinating Musc: Denies: extremity pain Skin/Breast: Denies: rash Neuro: Reports: dizziness and other; Denies: headache(s) Psych: Denies: anxiety or depression Gerardo/Lymph: Denies: easy bruising PFSH ED PFSH: Medical History ASHD (arteriosclerotic heart disease) HTN (hypertension) Myocardial infarction Obesity JORGE ALBERTO (obstructive sleep apnea) TIA (transient ischemic attack) Surgical History S/P PTCA (percutaneous transluminal coronary angioplasty) 2018 Family History Father Stroke Brother CAD (coronary artery disease) Social History Smoking and tobacco status: never smoked Alcohol intake: never Physical Exam Narrative: EXAM NARRATIVE: Patient is in no distress presently feels much better after resting here in the waiting room last few hours. Const: COMMON NORMALS: no acute distress, average body habitus and patient oriented x3 HENMT: COMMON NORMALS: normocephalic and TM's normal bilaterally HEAD & SCALP: normal to inspection and normocephalic FACE & SINUS: normal facial exam TYMPANIC MEMBRANE: TM's normal bilaterally and other (No fluid noted) Eye: COMMON NORMALS: conjunctivae normal GENERAL EYE: appearance normal, both eyes and all related structures CONJUNCTIVA: Yes conjunctivae normal Neck/C-Spine: COMMON NORMALS: no JVD Chest: COMMONS NORMALS: normal inspection of the chest Resp: COMMON NORMALS: normal respiratory effort and clear to auscultation bilaterally AUSCULTATION: clear to auscultation bilaterally Cardio: COMMON NORMALS: no JVD, regular rate and regular rhythm RATE: regular rate RHYTHM: regular rhythm GI: COMMON NORMALS: Normal to inspection, nondistended, normoactive bowel sounds present Extremity: COMMON NORMALS: normal to inspection and full ROM Neuro: COMMON NORMALS: patient oriented x3, moves all extremities and no focal motor deficits Skin: COMMON NORMALS: no rashes or lesions noted GENERAL SKIN EXAM: no rashes or lesions noted Course Vital Signs: Vital signs: Vital Signs Temperature 98.9 F 04/22/21 09:24 Pulse Rate 92 04/22/21 14:46 Respiratory Rate 18 04/22/21 09:24 Blood Pressure 140/92 04/22/21 14:46 Pulse Oximetry 98 04/22/21 14:46 MDM - COVID MDM Narrative: Medical decision making narrative: Patient having dizziness with standing. Checked on patient twice in waiting room checked on him at 1030 and again 1110. Patient is been in and out of chair says he is dizzy when standing. Pulse is stable. Patient no acute distress. Patient stated no distress to his visit. Covid test was negative. labs appear normal. Patient discharged home encourage drink fluids follow-up with your primary care provider for recheck in the next couple days. Lab Data: Labs: Lab Results 04/22/21 04/22/21 04/22/21 10:40 10:40 10:40 WBC 12.0 10^3/uL H 10 ^3/uL (4.0-10.0) RBC 6.05 10^6/uL H 10 ^6/uL (4.1-5.3) Hgb 18.0 g/dL H g/dL (11.7-16.6) Hct 54.0 % H % (42.0-52.0) MCV 89.3 fl fl (80-94) MCH 29.8 pg pg (28.0-34.0) MCHC 33.3 g/dL g/dL (30.0-36.0) RDW 12.4 % % (12.1-15.1) Plt Count 171 10^3/cmm 10^3 /cmm (130-400) MPV 10.5 fL H fL (7.4-10.4) Neut % (Auto) 94.4 % % Lymph % (Auto) 1.8 % % [place] % (Auto) 3.0 % % Eos % (Auto) 0.3 % % Baso % (Auto) 0.2 % % Neut # (Auto) 11.30 10^3/uL H 1 0^3/uL (1.8-7.7) Lymph # (Auto) 0.2 10^3/uL L 10^ 3/uL (0.8-4.8) [place] # (Auto) 0.4 10^3/uL 10^3/ uL (0.2-0.9) Eos # (Auto) 0.0 10^3/uL 10^3/ uL (0.0-0.8) Baso # (Auto) 0.0 10^3/uL 10^3/ uL (0.0-0.1) Nucleated RBC % (a uto) 0 % % Nucleated RBCs # 0.0 /100WBC /100W BC PT 13.90 SECONDS SEC ONDS (12.1-14.9) INR 1.04 (0.8-1.2) Sodium 138 mmol/L mmol/L (136-145) Potassium 4.2 mmol/L mmol/L (3.5-5.1) Chloride 105 mmol/L mmol/L (98-107) Carbon Dioxide 19 mmol/L L mmol/ L (22-29) Anion Gap 18.2 (5-19) BUN 13 mg/dL mg/dL (6-20) Creatinine 0.8 mg/dL mg/dL (0.7-1.2) GFR Calculation 99.3 mL/min mL/mi n (90-130) Glucose 114 mg/dL mg/dL (65-115) Calculated Osmolal ity 287 mOsm/kg mOsm/ kg (285-295) Calcium 8.2 mg/dL L mg/dL (8.5-10.5) Total Bilirubin 0.6 mg/dL mg/dL (0.15-1.2) AST 18 U/L U/L (0-40) ALT 17 U/L U/L (0-41) Alkaline Phosphata se 83 IU/L IU/L (40-130) Total Protein 6.4 g/dL L g/dL (6.6-8.7) Albumin 4.1 g/dL g/dL (3.5-5.2) Globulin 2.3 g/dL g/dL (1.3-4.6) SARS-CoV-2 Ag (Rap id) 04/22/21 12:26 WBC RBC Hgb Hct MCV MCH MCHC RDW Plt Count MPV Neut % (Auto) Lymph % (Auto) [place] % (Auto) Eos % (Auto) Baso % (Auto) Neut # (Auto) Lymph # (Auto) [place] # (Auto) Eos # (Auto) Baso # (Auto) Nucleated RBC % (a uto) Nucleated RBCs # PT INR Sodium Potassium Chloride Carbon Dioxide Anion Gap BUN Creatinine GFR Calculation Glucose Calculated Osmolal ity Calcium Total Bilirubin AST ALT Alkaline Phosphata se Total Protein Albumin Globulin SARS-CoV-2 Ag (Rap id) Negative (Negative) COVID Results: SARS-CoV-2 Antigen (Rapid) Negative (Negative) 04/22/21 12:26 04/22/21 Nasal/Oral Coronavirus 2019 PCR Not detected 11/18/20 09:39 11/18/20 Discharge Plan Discharge Patient Disposition: Home Clinical Impression: URI (upper respiratory infection) Qualifiers: URI type: unspecified viral URI Qualified Code(s): J06.9 - Acute upper respiratory infection, unspecified Condition: Stable Prescriptions: No Action omega-3 fatty acids [Fish Oil Concentrate] 1,000 mg capsule 1,000 mg PO BID RF: 0 nitroglycerin 0.4 mg tablet, sublingual 0.4 mg SUBLINGUAL Q5M PRN (Reason: chest pain) Qty: 25 RF: 3 metoprolol tartrate 25 mg tablet 12.5 mg PO BID RF: 0 magnesium 250 mg tablet 250 mg PO DAILY RF: 0 aspirin 81 mg tablet,delayed release (DR/EC) 81 mg PO DAILY Qty: 90 RF: 3 simvastatin 20 mg tablet 20 mg PO DAILY 90 Days Qty: 90 RF: 3 lisinopril 30 mg tablet 30 mg PO DAILY@1800 MDD SEE PHARMACY COMMENT 90 Days Qty: 90 RF: 1 clopidogrel 75 mg tablet 75 mg PO DAILY@2100 RF: 0 docusate sodium 100 mg capsule 100 mg PO DAILY Qty: 0 RF: 0 Beet Root 1 tab PO BID RF: 0 Discharge Orders: Discharge ED (Routine); Ordered 04/22/21 Ordered By: Raj Singer Referrals: Ronna Lopes DO [Primary Care Provider] - Discharge Diet: Usual diet Discharge Activity: Increase activity as tolerated Patient Instructions: Viral Syndrome (ED) Activity Restrictions/Additional Instructions: Can take [id number] cold medicine as per the label. Start out at half normal dosage and see if that helps with your congestion and chills symptoms. Follow-up here or your primary care if you have worsening symptoms. Coding Level of Care Code ED Mental Health Case Manager for Holger Munoz
--- NOTE | 2021-04-22 09:38 | ECG_ITS ---
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 Measurements Intervals [place] Rate: 96 P: 18 ND: 193 QRS: -45 QRSD: 129 T: 63 QT: 355 QTc: 449 Interpretive Statements SINUS RHYTHM LEFT AXIS DEVIATION [QRS AXIS < -30] ANTEROSEPTAL MYOCARDIAL INFARCTION , OF INDETERMINATE AGE [40+ ms Q WAVE IN V1-V4] Compared to ECG 12/15/2020 16:31:32 Intraventricular conduction delay no longer present Myocardial infarct finding still present Electronically Signed On 04-22-2021 12:56:56 RUBBER TESTER by Dotty Lima M.D. [id number]
[2021-04-22 10:48] LABS: Basophils % 0.2 %; Eosinophils % 0.3 %; Lymphocytes # 0.2 10^3/uL (0.8-4.8); Lymphocytes % 1.8 %; Mean Corpuscular HGB Conc 33.3 g/dL (30.0-36.0); Mean Corpuscular Hemoglobin 29.8 pg (28.0-34.0); Mean Corpuscular Volume 89.3 fl (80-94); Mean Platelet Volume 10.5 fL (7.4-10.4); Monocytes # 0.4 10^3/uL (0.2-0.9); Neutrophils % 94.4 %; Nucleated Red Blood Cells % 0 %; Platelet Count 171 10^3/cmm (130-400); Red Blood Count 6.05 10^6/uL (4.1-5.3); Red Cell Distribution Width 12.4 % (12.1-15.1)
[2021-04-22 11:03] LABS: INR 1.04 (0.8-1.2)
[2021-04-22 11:06] LABS: Alanine Aminotransferase 17 U/L (0-41); Albumin Level 4.1 g/dL (3.5-5.2); Alkaline Phosphatase 83 IU/L (40-130); Anion Gap 18.2 (5-19); Aspartate Amino Transferase 18 U/L (0-40); Blood Urea Nitrogen 13 mg/dL (6-20); Calcium 8.2 mg/dL (8.5-10.5); Carbon Dioxide 19 mmol/L (22-29); Chloride 105 mmol/L (98-107); Globulin 2.3 g/dL (1.3-4.6); Glomerular Filtration Rate 99.3 mL/min (90-130); Glucose 114 mg/dL (65-115); Osmolality Calculated 287 mOsm/kg (285-295); Potassium 4.2 mmol/L (3.5-5.1); Sodium 138 mmol/L (136-145); Total Bilirubin 0.6 mg/dL (0.15-1.2); Total Protein 6.4 g/dL (6.6-8.7)
[2021-04-22 12:33] VITALS: O2SAT 95
--- NOTE | 2021-04-22 12:37 | PC.NURSE ---
pt oriented to room. pt c/o fatigue, body aches, dizziness, and nausea. pt is alert and oriented. pt placed on hemodynamic monitoring. pt call light placed in reach
[2021-04-22 13:03] LABS: SARS Covid-2 Antigen Negative (Negative)
[2021-04-22 13:37] VITALS: BP 130/94; PULSE 92; O2SAT 97
[2021-04-22 14:46] VITALS: BP 140/92; PULSE 92; O2SAT 98
== END 2021-04-22 14:50 | disposition home or self-care (01) ==
PROVIDERS: Emergency Provider Nurse Practitioner Family; PCP Family Medicine
DX: J06.9 Acute upper respiratory infection, unspecified (principal); Z79.82 Long term (current) use of aspirin; Z79.02 Long term (current) use of antithrombotics/antiplatelets; I10 Essential (primary) hypertension; I25.2 Old myocardial infarction; Z86.73 Personal history of transient ischemic attack (TIA), and cerebral infarction without residual deficits; Z20.822 Contact with and (suspected) exposure to COVID-19
CPT/HCPCS: 80053; 85025; 85610; 87426; 93005; 99283

== ENCOUNTER 2021-05-05 20:00 | Outpatient (CLI) | payer OTHER, SELFPAY | END 2021-05-05 20:01 | disposition home or self-care (01) | LOC: SLEEP 05-06 07:20 | PROVIDERS: PCP Family Medicine; Visit Provider Family Medicine | DX: G47.33 Obstructive sleep apnea (adult) (pediatric) (principal) | CPT/HCPCS: 95811 ==

== ENCOUNTER → 2021-05-13 11:50 | Outpatient (BNVA) | payer OTHER, SELFPAY | PROVIDERS: PCP Family Medicine; Visit Provider Family Medicine | DX: Z00.00 Encounter for general adult medical examination without abnormal findings (principal); R35.1 Nocturia; Z13.6 Encounter for screening for cardiovascular disorders | CPT/HCPCS: 80053; 80061; 84153; 85025 ==

== ENCOUNTER → 2021-06-13 13:31 | Outpatient (BNVA) | payer OTHER, SELFPAY | PROVIDERS: PCP Family Medicine; Visit Provider Surgery | DX: Z11.52 Encounter for screening for COVID-19 (principal) | CPT/HCPCS: 87635 ==

== ENCOUNTER 2021-06-18 06:20 | Day surgery (SDC) | payer OTHER, SELFPAY ==
[2021-06-16 13:42] VITALS: BMI 36.0
[2021-06-18 07:03] VITALS: BP 133/92; PULSE 64; RESP 18; TEMP 36.1; O2SAT 96
[2021-06-18] MEDS: sodium chloride 0.9% 1,000 ML 30 ML IV (07:06)
--- NOTE | 2021-06-18 07:29 | ANES.PREANE2 ---
Pre-Anesthetic Assessment Height/Weight: Height 2.01 m Weight 145.15 kg Temp Pulse Resp BP Pulse Ox 97 F L 64 18 133/92 96 06/18/21 07:03 06/18/21 07:03 06/18/21 07:03 06/18/21 07:03 06/18/21 07:03 Preop Diagnosis: diagnostic Operation Date: 06/18/21 07:45 Proposed Procedures p Colonoscopy 93493/[id number](Not Applicable) - Rajat Lundberg MD Familial anesthetic complications: None Was Beta Santosh taken within 24 hours: Yes Was Clonidine taken within 24 hours: N/A Last intake: Intake Last Liquid Date 06/17/21 Last Liquid Time 21:00 Last Solid Date 06/16/21 Last Solid Time 20:00 Social Tobacco and No alcohol Exam alert, oriented x 3 and regular rate & rhythm Airway Submandibular: within normal limits Cervical ROM: within normal limits Mallampati: Class II Comments: Comments: White Pulmonary Chronic Obstructive Pulmonary Disease and Sleep Apnea CV/HEM Coronary Artery Disease (Stents), Hypertension and Myocardial Infarction Metabolic Morbid Obesity Neuropsych Transient Ischemic Attack Anesthetic Plan ASA status: 3 Anesthesia: MAC Medications/Allergies Home Medications Medication Instructions Recorded Confirmed Last Taken Type omega-3 fatty acids 1,000 mg 1,000 mg PO BID 08/23/19 06/18/21 06/17/21 History capsule (Fish Oil Concentrate) aspirin 81 mg tablet,delayed 81 mg PO DAILY #90 tab 06/14/20 06/18/21 06/17/21 Rx release nitroglycerin 0.4 mg sublingual 0.4 mg SUBLINGUAL Q5M PRN #25 tab 08/27/20 06/18/21 12/15/20 Rx tablet Beet Root 1 tab PO BID 12/15/20 06/18/21 06/16/21 History magnesium 250 mg tablet 250 mg PO DAILY 02/10/21 06/18/21 06/17/21 History docusate sodium 100 mg capsule 100 mg PO DAILY #0 cap 02/26/21 06/18/21 06/17/21 History lisinopril 30 mg tablet 30 mg PO DAILY@1800 90 Days #90 06/11/21 06/18/21 06/17/21 Rx tab MDD SEE PHARMACY COMMENT clopidogrel 75 mg tablet 75 mg PO DAILY@2100 #90 tab 06/13/21 06/18/21 06/17/21 Rx metoprolol tartrate 25 mg tablet 12.5 mg PO BID #90 tab 06/13/21 06/18/21 06/18/21 05:30 Rx simvastatin 20 mg tablet 20 mg PO DAILY 90 Days #90 tab 06/13/21 06/18/21 06/17/21 Rx Allergies Allergy/AdvReac Type Severity Reaction Status Date / Time amoxicillin [From Augmentin] Allergy sick to Verified 05/20/21 09:36 stomach clavulanic acid Allergy sick to Verified 05/20/21 09:36 [From Augmentin] stomach Current Medications Generic Name Dose Route Start Last Admin Trade Name Freq PRN Reason Stop Dose Admin Sodium Chloride 1,000 mls @ 30 mls/hr 06/18/21 06:45 06/18/21 07:06 Sodium Chloride 0.9% IV 06/19/21 06:44 30 mls/hr .Q24H ARLEEN Administration PFSH Anesthesia Medical History ASHD (arteriosclerotic heart disease) HTN (hypertension) Myocardial infarction Obesity JORGE ALBERTO (obstructive sleep apnea) TIA (transient ischemic attack) Surgical History History of colonoscopy 2001 History of coronary artery stent placement S/P PTCA (percutaneous transluminal coronary angioplasty) 2018 Family History Father Stroke Brother CAD (coronary artery disease) Social History Smoking and tobacco status: never smoked Alcohol intake: never Data Anesthesia Cardiac Studies: Sestamibi Stress Test (Cardiology) 10/15/20 Cardiac Event Monitor 11/27/20 Holter Monitor 09/02/20
--- NOTE | 2021-06-18 07:35 | W.PM.OPSFHP ---
Same Day Surgery H&P Indication for Procedure/HPI DATE OF PROCEDURE: June 18, 2021 CHIEF COMPLAINT/INDICATIONFOR SURGICAL PROCEDURE: hematochezia PREOP DIAGNOSIS: diagnostic PLANNED PROCEDURE: Operation Date: 06/18/21 07:45 Proposed Procedures p Colonoscopy [id number](Not Applicable) - Rajat Lundberg MD Medications/Allergies* Home Medications Medication Instructions Recorded Confirmed Type omega-3 fatty acids 1,000 mg 1,000 mg PO BID 08/23/19 06/18/21 History capsule (Fish Oil Concentrate) Beet Root 1 tab PO BID 12/15/20 06/18/21 History magnesium 250 mg tablet 250 mg PO DAILY 02/10/21 06/18/21 History docusate sodium 100 mg capsule 100 mg PO DAILY #0 cap 02/26/21 06/18/21 History Allergies/Adverse Reactions Allergy/AdvReac Type Severity Reaction Status Date / Time amoxicillin [From Augmentin] Allergy sick to Verified 05/20/21 09:36 stomach clavulanic acid Allergy sick to Verified 05/20/21 09:36 [From Augmentin] stomach Current Medications: Generic Name Dose Route Start Last Admin Trade Name Freq PRN Reason Stop Dose Admin Sodium Chloride 1,000 mls @ 30 mls/hr 06/18/21 06:45 06/18/21 07:06 Sodium Chloride 0.9% IV 06/19/21 06:44 30 mls/hr .Q24H ARLEEN Administration Pertinent History/Comorbid Conditions* Medical History (Updated 05/20/21 @ 10:07 by Gregory Mayes MD) ASHD (arteriosclerotic heart disease) HTN (hypertension) Myocardial infarction Obesity JORGE ALBERTO (obstructive sleep apnea) TIA (transient ischemic attack) Surgical History (Updated 05/20/21 @ 09:35 by Rajat Lundberg MD) History of colonoscopy 2001 History of coronary artery stent placement S/P PTCA (percutaneous transluminal coronary angioplasty) 2018 Family History (Updated 08/22/19 @ 11:20 by Jenelle Bridges RN) CAD (coronary artery disease) Brother Stroke Father Social History Smoking and tobacco status: never smoked Alcohol intake: never Pertinent Exam Findings alert, oriented x 3 and regular rate & rhythm Recommendations Surgery/Procedure today Coding Level of Care Code Acute Polisher Balance Screwhead for Padminig Tammy
[2021-06-18 08:10] VITALS: BP 110/73; PULSE 66; RESP 16; TEMP 37; O2SAT 92
--- NOTE | 2021-06-18 08:15 | ANE.PACU2 ---
Inpatient post-anesthesia follow up: Airway intact: Yes Vital signs: Temperature 98.6 F Pulse Rate 66 Respiratory Rate 16 Blood Pressure 110/73 Pulse Oximetry 92 Oxygen Delivery Me thod Room Air Oxygen Flow Rate Fraction of Inspir ed Oxygen Hydration adequate: Yes Nausea and vomiting: No Pain level: 1 Mental status: Baseline
[2021-06-18 08:25] VITALS: BP 115/85; PULSE 63; RESP 16; O2SAT 97
== END 2021-06-18 08:35 | disposition home or self-care (01) ==
PROVIDERS: PCP Family Medicine; Visit Provider Surgery
PROC: 0DJD8ZZ Inspection of Lower Intestinal Tract, Via Natural or Artificial Opening Endoscopic (ICD-10-PCS; CPT 45378; principal; 2021-06-18 07:45)
DX: K92.1 Melena (principal); D12.5 Benign neoplasm of sigmoid colon; D12.8 Benign neoplasm of rectum; K57.30 Diverticulosis of large intestine without perforation or abscess without bleeding; K64.8 Other hemorrhoids; J44.9 Chronic obstructive pulmonary disease, unspecified; I25.10 Atherosclerotic heart disease of native coronary artery without angina pectoris; Z95.5 Presence of coronary angioplasty implant and graft; I25.2 Old myocardial infarction; E66.01 Morbid (severe) obesity due to excess calories; Z68.36 Body mass index [BMI] 36.0-36.9, adult; Z86.73 Personal history of transient ischemic attack (TIA), and cerebral infarction without residual deficits; G47.33 Obstructive sleep apnea (adult) (pediatric); Z82.49 Family history of ischemic heart disease and other diseases of the circulatory system; Z82.3 Family history of stroke
CPT/HCPCS: 45380; 45385; 88305; J2704; J7030

== ENCOUNTER 2021-06-20 12:40 | Emergency (ER) | payer OTHER, SELFPAY ==
[2021-06-20 13:14] VITALS: BP 115/79; PULSE 100; RESP 20; O2SAT 95; BMI 36.0
--- NOTE | 2021-06-20 13:22 | ED_ITS ---
HPI - GI Bleed General: Chief complaint: GI Bleed Stated complaint: Dizzy Time Seen by Provider: 06/20/21 13:19 Source: patient Mode of arrival: ambulatory Limitations: no limitations History of Present Illness: 61-year-old male presents to the ER with complaints of bright red blood per rectum. He had a colonoscopy 2 days ago and had several rectal polyps removed. The following day he began to go to the gym and resumed his Plavix. After working he has begun to have rectal bleeding since several bright red bloody stools. Call Dr. Lundberg's office who did his colonoscopy with advised him not to take Plavix and refrain from exertional activity. He became somewhat dizzy after this and presented to the emergency room. MD complaint: gross hematochezia Onset (ago): hour(s) Pain Consistency: intermittent Severity: mild Relieving factors: none Exacerbating factors: none Context: other (recetn colonosocpy w polypectomy) Associated symptoms: Denies abdominal pain, chills, easy bruising, epistaxis, fever(s), headache(s), malaise, nausea, other bleeding, poor appetite, rash, syncope, vomiting or weakness Treatments Prior to Arrival: none Review of Systems Const: Denies: fever(s), chills or malaise ENMT: Denies: epistaxis Card: Denies: syncope Resp: Denies: dyspnea, productive cough or non-productive cough GI: Denies: abdominal pain, nausea or vomiting : Denies: flank pain, dysuria, urinary frequency or urinary urgency Skin/Breast: Denies: rash Neuro: Denies: headache(s) Gerardo/Lymph: Denies: easy bruising [facility] ED PFSH: Medical History ASHD (arteriosclerotic heart disease) HTN (hypertension) Myocardial infarction Obesity JORGE ALBERTO (obstructive sleep apnea) TIA (transient ischemic attack) Surgical History History of colonoscopy 2001 History of coronary artery stent placement S/P PTCA (percutaneous transluminal coronary angioplasty) 2018 Status post colonoscopy with polypectomy (06/18/21) Internal hemorrhoids, sigmoid diverticulosis, polyp in the transverse, descending, sigmoid colon and rectum Family History Father Stroke Brother CAD (coronary artery disease) Social History Smoking and tobacco status: never smoked Alcohol intake: never Physical Exam Const: COMMON NORMALS: no acute distress GENERAL APPEARANCE: cooperative a nd comfortable ORIENTATION/CONSCIOUSNESS: Yes awake, Yes oriented to person, Yes oriented to place and Yes oriented to time HENMT: COMMON NORMALS: normocephalic, atraumatic, hearing grossly normal bilaterally, external ears normal, EAC's normal, TM's normal bilaterally and Normal nasal mucous membranes and turbinates present HEAD & SCALP: normocephalic and atraumatic NOSE: Normal nasal mucous membranes and turbinates present EXTERNAL EAR: Yes external ears normal EXTERNAL AUDITORY CANAL: EAC's normal TYMPANIC MEMBRANE: TM's normal bilaterally Eye: COMMON NORMALS: Equal, round and reactive pupils present, EOMs intact bilaterally, conjunctivae normal and no scleral icterus CONJUNCTIVA: Yes conjunctivae normal PUPIL: Yes Equal, round and reactive pupils present Neck/C-Spine: COMMON NORMALS: no JVD Lymph: LYMPHATIC: no lymphadenopathy noted and no lymphedema noted Resp: COMMON NORMALS: normal respiratory effort, No retractions, No use of accessory muscles and clear to auscultation bilaterally AUSCULTATION: clear to auscultation bilaterally Cardio: COMMON NORMALS: no JVD, regular rate, regular rhythm and No murmurs present (Cardio) RATE: regular rate RHYTHM: regular rhythm GI: COMMON NORMALS: Soft to palpation and No hepatosplenomegaly present AUSCULTATION: Yes normoactive bowel sounds PALPATION: Yes Soft to palpation, No Tenderness to palpation present (GI), No Guarding due to palpation present (GI) and Yes No hepatosplenomegaly present Extremity: COMMON NORMALS: normal to inspection, capillary refill normal, no clubbing, cyanosis or edema, no calf tenderness and no pedal edema Neuro: SENSORIUM/ORIENTATION: Yes oriented to person, Yes oriented to place and Yes oriented to time Skin: COMMON NORMALS: no rashes or lesions noted GENERAL SKIN EXAM: no rashes or lesions noted Course Vital Signs: Vital signs: Vital Signs Pulse Rate 71 06/20/21 15:06 Respiratory Rate 16 06/20/21 15:06 Blood Pressure 122/71 03/04/22 15:06 Pulse Oximetry 99 06/20/21 15:06 MDM - GI Bleed Medical Decision Making Hemoglobin is stable. Stop Plavix avoid exertional activities repeat hemoglobin with Dr. Lundberg in 2 to 3 days in the office. Discussed with Dr. Lundberg as well he concurs. Medical Records I reviewed the patient's medical records. Lab Data I reviewed the patient's lab results. : 06/20/21 13:50 06/20/21 13:50 Laboratory Results WBC 10.6 10^3/uL (4.0-10.0) H 06/20/21 13:50 RBC 5.17 10^6/uL (4.1-5.3) 06/20/21 13:50 Hgb 15.4 g/dL (11.7-16.6) 06/20/21 13:50 Hct 46.7 % (42.0-52.0) 06/20/21 13:50 MCV 90.3 fl (80-94) 06/20/21 13:50 MCH 29.8 pg (28.0-34.0) 06/20/21 13:50 MCHC 33.0 g/dL (30.0-36.0) 06/20/21 13:50 RDW 12.5 % (12.1-15.1) 06/20/21 13:50 Plt Count 186 10^3/cmm (130-400) 06/20/21 13:50 MPV 10.7 fL (7.4-10.4) H 06/20/21 13:50 Neut % (Auto) 80.7 % 06/20/21 13:50 Lymph % (Auto) 10.3 % 06/20/21 13:50 [place] % (Auto) 6.2 % 06/20/21 13:50 Eos % (Auto) 2.2 % 06/20/21 13:50 Baso % (Auto) 0.4 % 06/20/21 13:50 Neut # (Auto) 8.55 10^3/uL (1.8-7.7) H 06/20/21 13:50 Lymph # (Auto) 1.1 10^3/uL (0.8-4.8) 06/20/21 13:50 [place] # (Auto) 0.7 10^3/uL (0.2-0.9) 06/20/21 13:50 Eos # (Auto) 0.2 10^3/uL (0.0-0.8) 06/20/21 13:50 Baso # (Auto) 0.0 10^3/uL (0.0-0.1) 06/20/21 13:50 Nucleated RBC % (auto) 0 % 06/20/21 13:50 Nucleated RBCs # 0.0 /100WBC 06/20/21 13:50 Sodium 137 mmol/L (136-145) 06/20/21 13:50 Potassium 4.2 mmol/L (3.5-5.1) 06/20/21 13:50 Chloride 104 mmol/L (98-107) 06/20/21 13:50 Carbon Dioxide 23 mmol/L (22-29) 06/20/21 13:50 Anion Gap 14.2 (5-19) 06/20/21 13:50 BUN 12 mg/dL (6-20) 06/20/21 13:50 Creatinine 0.8 mg/dL (0.7-1.2) 06/20/21 13:50 GFR Calculation 98.9 mL/min (90-130) 06/20/21 13:50 Glucose 123 mg/dL (65-115) H 06/20/21 13:50 Calculated Osmolality 285 mOsm/kg (285-295) 06/20/21 13:50 Calcium 7.9 mg/dL (8.5-10.5) L 06/20/21 13:50 Total Bilirubin 0.4 mg/dL (0.15-1.2) 06/20/21 13:50 AST 23 U/L (0-40) 06/20/21 13:50 ALT 17 U/L (0-41) 06/20/21 13:50 Alkaline Phosphatase 75 IU/L (40-130) 06/20/21 13:50 Total Protein 5.8 g/dL (6.6-8.7) L 06/20/21 13:50 Albumin 4.1 g/dL (3.5-5.2) 06/20/21 13:50 Globulin 1.7 g/dL (1.3-4.6) 06/20/21 13:50 Discharge Plan Discharge Patient Disposition: Home Clinical Impression: Rectal bleeding Condition: Stable Prescriptions: Held aspirin 81 mg tablet,delayed release (DR/EC) 81 mg PO DAILY Qty: 90 3RF Hold Instructions: Resume on 06/23/21. clopidogrel 75 mg tablet 75 mg PO DAILY@2100 Qty: 90 3RF Hold Instructions: Resume on 06/21/21. No Action omega-3 fatty acids [Fish Oil Concentrate] 1,000 mg capsule 1,000 mg PO BID 0RF nitroglycerin 0.4 mg tablet, sublingual 0.4 mg SUBLINGUAL Q5M PRN (Reason: chest pain) Qty: 25 3RF Rx Instructions: do not exceed 3 doses per episode magnesium 250 mg tablet 250 mg PO DAILY 0RF lisinopril 30 mg tablet 30 mg PO DAILY@1800 MDD SEE PHARMACY COMMENT 90 Days Qty: 90 1RF metoprolol tartrate 25 mg tablet 12.5 mg PO BID Qty: 90 3RF simvastatin 20 mg tablet 20 mg PO DAILY 90 Days Qty: 90 3RF docusate sodium 100 mg capsule 100 mg PO DAILY Qty: 0 0RF Beet Root 1 tab PO BID 0RF Discharge Orders: Discharge ED (Routine); Ordered 06/20/21 Ordered By: Campbell Loo Referrals: Ronna Lopes DO [Primary Care Provider] - Discharge Diet: Clear Liquid Discharge Activity: Resume usual activity and Limit activity as instructed Patient Instructions: Opioid Safety Activity Restrictions/Additional Instructions: No exertional activities. Hold Plavix and aspirin for the next 2 days repeat CBC with Dr. Ramos office on Wednesday. Return if has problems Coding Level of Care Code ED Customer Care Manager for Holger Fwclarisse Exam Comprehensive
[2021-06-20 13:43] VITALS: BP 115/79; PULSE 98; RESP 18; O2SAT 96
[2021-06-20] MEDS: sodium chloride 0.9% 1,000 ML 999 ML IV (13:50)
[2021-06-20 13:57] LABS: Basophils % 0.4 %; Eosinophils # 0.2 10^3/uL (0.0-0.8); Eosinophils % 2.2 %; Hematocrit 46.7 % (42.0-52.0); Hemoglobin 15.4 g/dL (11.7-16.6); Lymphocytes # 1.1 10^3/uL (0.8-4.8); Lymphocytes % 10.3 %; Mean Corpuscular Hemoglobin 29.8 pg (28.0-34.0); Mean Corpuscular Volume 90.3 fl (80-94); Mean Platelet Volume 10.7 fL (7.4-10.4); Monocytes # 0.7 10^3/uL (0.2-0.9); Monocytes % 6.2 %; Neutrophils # 8.55 10^3/uL (1.8-7.7); Neutrophils % 80.7 %; Nucleated Red Blood Cells % 0 %; Platelet Count 186 10^3/cmm (130-400); Red Blood Count 5.17 10^6/uL (4.1-5.3); Red Cell Distribution Width 12.5 % (12.1-15.1); White Blood Count 10.6 10^3/uL (4.0-10.0)
[2021-06-20 14:15] VITALS: BP 111/73; PULSE 67; RESP 16; O2SAT 96
--- NOTE | 2021-06-20 14:15 | PC.NURSE ---
PATIENT GIVEN BEDSIDE COMMODE.
[2021-06-20 14:28] LABS: Alanine Aminotransferase 17 U/L (0-41); Albumin Level 4.1 g/dL (3.5-5.2); Alkaline Phosphatase 75 IU/L (40-130); Anion Gap 14.2 (5-19); Aspartate Amino Transferase 23 U/L (0-40); Blood Urea Nitrogen 12 mg/dL (6-20); Calcium 7.9 mg/dL (8.5-10.5); Carbon Dioxide 23 mmol/L (22-29); Chloride 104 mmol/L (98-107); Globulin 1.7 g/dL (1.3-4.6); Glomerular Filtration Rate 98.9 mL/min (90-130); Glucose 123 mg/dL (65-115); Osmolality Calculated 285 mOsm/kg (285-295); Potassium 4.2 mmol/L (3.5-5.1); Sodium 137 mmol/L (136-145); Total Bilirubin 0.4 mg/dL (0.15-1.2); Total Protein 5.8 g/dL (6.6-8.7)
[2021-06-20 15:06] VITALS: BP 122/71; PULSE 71; RESP 16; O2SAT 99
== END 2021-06-20 15:00 | disposition home or self-care (01) ==
PROVIDERS: Emergency Provider Family Medicine; PCP Family Medicine
DX: K62.5 Hemorrhage of anus and rectum (principal); I10 Essential (primary) hypertension; I25.2 Old myocardial infarction; Z86.73 Personal history of transient ischemic attack (TIA), and cerebral infarction without residual deficits
CPT/HCPCS: 80053; 85025; 96360; 99283; J7030

== ENCOUNTER 2021-06-23 09:06 | Outpatient (CLI) | payer OTHER, SELFPAY ==
[2021-06-23 09:39] LABS: Basophils # 0.1 10^3/uL (0.0-0.1); Basophils % 0.9 %; Eosinophils # 0.5 10^3/uL (0.0-0.8); Eosinophils % 7.4 %; Hemoglobin 11.5 g/dL (11.7-16.6); Lymphocytes # 1.4 10^3/uL (0.8-4.8); Lymphocytes % 21.2 %; Mean Corpuscular HGB Conc 31.9 g/dL (30.0-36.0); Mean Corpuscular Hemoglobin 29.3 pg (28.0-34.0); Mean Corpuscular Volume 91.8 fl (80-94); Mean Platelet Volume 10.8 fL (7.4-10.4); Monocytes # 0.6 10^3/uL (0.2-0.9); Monocytes % 8.5 %; Neutrophils # 4.06 10^3/uL (1.8-7.7); Neutrophils % 61.5 %; Nucleated Red Blood Cells % 0 %; Platelet Count 162 10^3/cmm (130-400); Red Blood Count 3.92 10^6/uL (4.1-5.3); Red Cell Distribution Width 12.9 % (12.1-15.1); White Blood Count 6.6 10^3/uL (4.0-10.0)
== END 2021-06-23 09:07 | disposition home or self-care (01) ==
PROVIDERS: PCP Family Medicine; Visit Provider Surgery
DX: K62.5 Hemorrhage of anus and rectum (principal)
CPT/HCPCS: 36415; 85025

== ENCOUNTER → 2021-07-17 09:23 | Outpatient (BNVA) | payer OTHER, SELFPAY | PROVIDERS: PCP Family Medicine; Visit Provider Family Medicine | DX: I25.10 Atherosclerotic heart disease of native coronary artery without angina pectoris (principal) | CPT/HCPCS: 80048 ==

== ENCOUNTER 2021-08-30 03:00 | Emergency (ER) | payer OTHER, SELFPAY ==
[2021-08-30 03:05] VITALS: BP 143/103; PULSE 100; RESP 26; TEMP 37; O2SAT 94; BMI 34.9
--- NOTE | 2021-08-30 03:20 | XRR_ITS ---
PROCEDURE INFORMATION: Exam: XR Chest Exam date and time: 08/30/2021 3:28 AM Age: 61 years old Clinical indication: Prior surgery; Surgery date: 6+ months; Surgery type: Stented coronary artery; Patient HX: C/O fever with body aches. History of mi. ; Additional info: Fever chills TECHNIQUE: Imaging protocol: XR of the chest. Views: 1 view. COMPARISON: CR XR chest 1V portable [id number] 12/15/2020 4:36 PM FINDINGS: Lungs: There are increased interstitial markings present in the lower hemithoraces bilaterally, findings that may represent atelectasis although a bilateral interstitial pneumonitis cannot be excluded. Pleural spaces: Unremarkable. No pleural effusion. No pneumothorax. Heart/Mediastinum: Unremarkable. No cardiomegaly. Bones/joints: Unremarkable. XR/XR chest 1V portable [id number] IMPRESSION: 1. Increased interstitial markings in the lower hemithoraces bilaterally may represent atelectasis although a bilateral basilar interstitial pneumonitis cannot be excluded.
--- NOTE | 2021-08-30 03:36 | ED_ITS ---
HPI - Fever General: Chief Complaint: Fever Stated Complaint: Body aches/fever Time Seen by Provider: 08/30/21 03:04 Source: patient History of Present Illness: 61-year-old male who awoke at 1 AM feeling feverish, with chills, and body aches. He notes that he worked out at the gym yesterday, and mowed his yard. Otherwise no symptoms. He did not have a way to check his temperature at home. He is not really nauseated. No respiratory symptoms. He was afraid he had contracted COVID-19, so he came to the ER for evaluation. MD elicited complaint: fever and other Onset (ago): hour(s) (2) Associated symptoms: Reports chills and myalgias; Deny abdominal pain, flank pain, chest pain, headache(s), nasal congestion, nausea, night sweats, rhinorrhea, short of breath, sinus pain or vomiting Treatments prior to arrival fever: none Review of Systems Const: Reports: chills and body aches; Denies: fever(s) or night sweats ENMT: Denies: throat pain, nasal congestion or sinus pain Card: Denies: chest pain Resp: Denies: dyspnea, productive cough or non-productive cough GI: Denies: abdominal pain, nausea or vomiting : Denies: flank pain Neuro: Denies: headache(s) [facility] ED PFSH: Medical History ASHD (arteriosclerotic heart disease) History of colon polyps HTN (hypertension) Myocardial infarction Obesity JORGE ALBERTO (obstructive sleep apnea) TIA (transient ischemic attack) Surgical History History of colonoscopy 2002 History of coronary artery stent placement S/P PTCA (percutaneous transluminal coronary angioplasty) 2018 Status post colonoscopy with polypectomy (06/18/21) Internal hemorrhoids, sigmoid diverticulosis, polyp in the transverse, descending, sigmoid colon and rectum Family History Father Stroke Brother CAD (coronary artery disease) Social History Smoking and tobacco status: never smoked Alcohol intake: never Physical Exam Const: GENERAL APPEARANCE: cooperative; not ill appearing and not frail appearing HENMT: COMMON NORMALS: normocephalic, external ears normal and Normal external nose present HEAD & SCALP: normocephalic FACE & SINUS: normal facial exam and face symmetric NOSE: Normal external nose present and Normal nares present EXTERNAL EAR: Yes external ears normal MOUTH: Normal oral and palatal mucosa present THROAT: posterior oropharynx normal Eye: COMMON NORMALS: Equal, round and reactive pupils present and EOMs intact bilaterally PUPIL: Yes Equal, round and reactive pupils present Chest: COMMONS NORMALS: normal inspection of the chest CHEST: Yes Symmetrical chest wall rise Resp: COMMON NORMALS: normal respiratory effort, No use of accessory muscles a nd clear to auscultation bilaterally AUSCULTATION: clear to auscultation bilaterally Cardio: COMMON NORMALS: regular rate and regular rhythm RATE: regular rate RHYTHM: regular rhythm GI: COMMON NORMALS: Normal to inspection, nondistended, normoactive bowel sounds present, Soft to palpation and non-tender PALPATION: Yes Soft to palpation Neuro: PATRIZIA COMA SCALE: document GCS findings [place] coma scale eye opening: Spontaneous [place] coma scale verbal response: Orientated [place] coma scale motor response: Obey commands [place] coma scale total score: 15 Psych: COMMON NORMALS: cooperative Skin: COMMON NORMALS: no rashes or lesions noted GENERAL SKIN EXAM: no rashes or lesions noted Course Vital Signs: Vital signs: Vital Signs Temperature 98.6 F 08/30/21 03:05 Pulse Rate 100 08/30/21 03:05 Respiratory Rate 26 H 08/30/21 03:05 Blood Pressure 143/103 08/30/21 03:05 Pulse Oximetry 94 08/30/21 03:05 MDM - Fever Medical Decision Making Patient's temperature is 98.6 here without treatment. He will receive Toradol for the body aches. He is swabbed for viral panel including COVID-19 and influenza. His blood pressure is 143/96, saturations 94%. He is nontachycardic his exam is essentially normal. He will be discharged. His chest x-ray is negative for pneumonia. We will let him call back for his result. Obviously with only a couple hours of symptoms, a rapid antigen test will not be accurate. Lab Data Radiology Impressions Chest X-Ray 08/30/21 03:20 IMPRESSION: 1. Increased interstitial markings in the lower hemithoraces bilaterally may represent atelectasis although a bilateral basilar interstitial pneumonitis cannot be excluded. Discharge Plan Discharge Patient Disposition: Home Clinical Impression: Body aches Condition: Stable Prescriptions: New ketorolac 10 mg tablet 10 mg PO TID PRN (Reason: pain) Qty: 10 0RF No Action omega-3 fatty acids [Fish Oil Concentrate] 1,000 mg capsule 1,000 mg PO BID 0RF magnesium 250 mg tablet 250 mg PO DAILY 0RF simvastatin 40 mg tablet 40 mg PO DAILY Qty: 90 3RF spironolactone 25 mg tablet 12.5 mg PO DAILY Qty: 45 3RF lisinopril 10 mg tablet 10 mg PO DAILY Qty: 90 3RF aspirin 81 mg tablet,delayed release (DR/EC) 81 mg PO DAILY Qty: 90 3RF Hold Instructions: Resume on 06/23/21. clopidogrel 75 mg tablet 75 mg PO DAILY@2100 Qty: 90 3RF Hold Instructions: Resume on 06/21/21. metoprolol tartrate 25 mg tablet 12.5 mg PO BID Qty: 90 3RF nitroglycerin 0.4 mg tablet, sublingual 0.4 mg SUBLINGUAL Q5M PRN (Reason: chest pain) Qty: 25 3RF Rx Instructions: do not exceed 3 doses per episode losartan 50 mg tablet 50 mg PO DAILY Qty: 14 0RF docusate sodium 100 mg capsule 100 mg PO DAILY Qty: 0 0RF Beet Root 1 tab PO BID 0RF Discharge Orders: Discharge ED (Routine); Ordered 08/30/21 Ordered By: Terry Lee Referrals: Ronna Lopes DO [Primary Care Provider] - 1-3 days Patient Instructions: Viral Syndrome (ED) Activity Restrictions/Additional Instructions: Be sure to call later today for your PCR test result. You can get this from the lab. Return for shortness of breath, vomiting liquids or medications, temperature greater than 101 with inability to control with medication, any other concerning symptoms. Make sure you drink plenty of fluids for the next 48 hours. Stay out of the heat. Coding Level of Care Code ED Puppet Developer for Padminig Fwd Exam Comprehensive
[2021-08-30] MEDS: ketorolac 10 mg Tablet PO (03:59)
[2021-08-30 07:37] LABS: Adenovirus Not Detected (NOT DETECT); Chlamydia Pneumoniae Not Detected (NOT DETECT); Coronavirus 229E,HKU1,NL63,OC4 Not Detected (NOT DETECT); Human Metapneumovirus Not Detected (NOT DETECT); Human Rhinovirus/Enterovirus Not Detected (NOT DETECT); Influenza A Not Detected (NOT DETECT); Influenza A H1 Not Detected (NOT DETECT); Influenza A H1-2009 Not Detected (NOT DETECT); Influenza A H3 Not Detected (NOT DETECT); Influenza B Not Detected (NOT DETECT); Mycoplasma Pneumoniae Not Detected (NOT DETECT); Parainfluenza Virus Type 1 Not Detected (NOT DETECT); Parainfluenza Virus Type 2 Not Detected (NOT DETECT); Parainfluenza Virus Type 3 Not Detected (NOT DETECT); Parainfluenza Virus Type 4 Not Detected (NOT DETECT); Respiratory Syncytial Virus A Not Detected (NOT DETECT); Respiratory Syncytial Virus B Not Detected (NOT DETECT); SARS-COV-2 Not Detected (NOT DETECT)
== END 2021-08-30 04:00 | disposition home or self-care (01) ==
PROVIDERS: Emergency Provider Emergency Medicine; PCP Family Medicine
DX: M79.10 Myalgia, unspecified site (principal); Z20.822 Contact with and (suspected) exposure to COVID-19
CPT/HCPCS: 71045; 87635; 99283

== ENCOUNTER 2021-10-31 08:16 | Outpatient (CLI) | payer OTHER, SELFPAY ==
--- NOTE | 2021-10-31 08:45 | USCV_ITS ---
Costa Trujillo Age: 61 Gender: M : 1960 Exam Date: 10/31/2021 08:43 Ordering Phys: Robert Atkinson M.D ([email or web address]) Technologist: [email or web address] Exam Location: [facility] [place] Indication: CHEST PAIN, SHORTNESS OF BREATH BP: 144 / 68 HR: 57 Rhythm: Sinus Technical Quality: Poor because of body habitus MEASUREMENTS (Male / Female) Normal Values 2D ECHO LVOT Diameter 2.0 cm LV Ejection Fraction MOD 2C 46.1 % LV Ejection Fraction 2C AL 46.3 % LA Diameter 3.5 cm LA Width 3.4 cm LA Height 5.3 cm RA Width 3.9 cm RA Height 4.5 cm Aorta at Sinotubular Diameter 3.0 cm IVC Diameter 2.0 cm M-MODE Aortic Annulus Diameter 4.0 cm LA Ao Ratio MM 0.8 MV E Point Septal Separation 1.7 cm DOPPLER AV Peak Velocity 148.7 cm/s LVOT Peak Velocity 88.0 cm/s AV Area Cont Eq vti 1.8 cm squared AV Area Cont Eq pk 1.9 cm squared MV Peak Velocity 83.0 cm/s MV Area PHT 3.2 cm squared Mitral E to A Ratio 0.8 MV E' Velocity 38.0 cm/s Mitral E to MV E' Ratio 8.6 Mitral E to LV E' Lateral Ratio 7.2 Mitral E to LV E' Septal Ratio 10.9 TR Peak Velocity 213.7 cm/s TR Peak Gradient 18.3 mmHg TR Mean Velocity 197.3 cm/s TR Mean Gradient 16.2 mmHg TR Velocity Time Integral 81.4 cm TV Peak E Velocity 45.0 cm/s Right Atrial Pressure 3.0 mmHg Pulmonary Artery Systolic Pressu 21.3 mmHg FINDINGS Left Ventricle Technically limited quality echocardiogram because of poor ultrasonic windows. LV systolic function is grossly moderately reduced. Grade 1 diastolic dysfunction. Right Ventricle Grossly normal Right Atrium Grossly normal Left Atrium Normal in size Mitral Valve Grossly normal Aortic Valve Not well-visualized Tricuspid Valve Grossly normal Pulmonic Valve Not visualized Pericardium Grossly normal Aorta Grossly normal IVC CONCLUSIONS Technically very limited quality echocardiogram because of poor ultrasonic windows. LV systolic function is grossly moderately reduced. Grade 1 diastolic dysfunction. Valvular structures not well visualized Compared to prior echocardiogram from 2018, no significant changes are seen. Robert Atkinson MD (Electronically Signed) Final Date: 09 November 2021 00:15 S
== END 2021-10-31 08:17 | disposition home or self-care (01) ==
PROVIDERS: PCP Family Medicine; Visit Provider Internal Medicine
DX: R07.9 Chest pain, unspecified (principal)
CPT/HCPCS: 93306

== ENCOUNTER → 2021-12-05 09:19 | Outpatient (BNVA) | payer OTHER, SELFPAY | PROVIDERS: PCP Family Medicine; Visit Provider Family Medicine Adult Medicine | DX: J02.9 Acute pharyngitis, unspecified (principal); R52 Pain, unspecified; Z20.822 Contact with and (suspected) exposure to COVID-19 | CPT/HCPCS: 87426 ==

== ENCOUNTER → 2022-01-02 14:01 | Outpatient (BNVA) | payer OTHER, SELFPAY | PROVIDERS: PCP Family Medicine; Visit Provider Family Medicine | DX: I25.10 Atherosclerotic heart disease of native coronary artery without angina pectoris (principal) | CPT/HCPCS: 80053; 80061 ==

== ENCOUNTER → 2022-08-20 09:40 | Outpatient (BNVA) | payer OTHER, SELFPAY | PROVIDERS: PCP Family Medicine; Visit Provider Family Medicine | DX: I10 Essential (primary) hypertension (principal); R35.1 Nocturia | CPT/HCPCS: 80053; 80061; 82043; 84153; 85025 ==

== ENCOUNTER 2022-12-07 14:51 | Outpatient (CLI) | payer OTHER, SELFPAY ==
--- NOTE | 2022-12-07 14:58 | XR_ITS ---
WS: [id number] EXAMINATION: XR knee LT 3V* [id number] REASON FOR EXAM: left knee instability COMPARISON: None available. ORDER DATE: 12/07/2022 3:08 PM FINDINGS: There is no sign of any acute osseous or articular abnormality. There are no specific soft tissue abn ormalities. Small fabella noted. Cannot rule out the possibility of a small popliteal cyst. IMPRESSION: No acute osseous change
== END 2022-12-07 14:52 | disposition home or self-care (01) ==
PROVIDERS: PCP Family Medicine; Visit Provider Family Medicine
DX: M25.362 Other instability, left knee (principal)
CPT/HCPCS: 73562

== ENCOUNTER 2023-02-12 13:07 | Outpatient (CLI) | payer OTHER, SELFPAY ==
--- NOTE | 2023-02-12 13:45 | MR_ITS ---
WS: [id number] MRI LEFT KNEE NONCONTRAST TECHNIQUE: Axial PD, coronal PD fat sat, coronal PD, sagittal PD, and sagittal PD fat-sat images obta ined. CLINICAL INFORMATION: left knee instability COMPARISON: None. FINDINGS: Mild tricompartmental arthritis. No significant joint effusion. Distal quadriceps and patella tendons are intact. Hypertrophic patella. Normal ACL and PCL. No acute appearing meniscal tears. Mild chondromalacia medial and lateral joint compartments. Mild thinning of the meniscus. Medial subl uxation of the patella. Medial and lateral patellar retinaculum appear intact. Recommend correlation for patellar instability. Medial lateral collateral ligaments appear intact. Mild to moderate chondro malacia patella. IMPRESSION: 1. Medial subluxation of the patella in the trochlear groove. Medial and lateral patellar retinaculu m appear intact. Recommend correlation for patellar instability. 2. No significant joint effusion. 3. Medial and lateral collateral ligaments appear intact. 4. ACL and PCL appear intact. 5. No acute appearing meniscal tears. Outbridge grading: grade III: partial-thickness cartilage loss with focal ulceration
== END 2023-02-12 13:08 | disposition home or self-care (01) ==
PROVIDERS: PCP Family Medicine; Visit Provider Family Medicine
DX: M25.362 Other instability, left knee (principal)
CPT/HCPCS: 73721

== ENCOUNTER → 2023-03-08 13:33 | Outpatient (BNVA) | payer OTHER, SELFPAY | PROVIDERS: PCP Family Medicine; Visit Provider Family Medicine | DX: I10 Essential (primary) hypertension (principal) | CPT/HCPCS: 80048 ==

== ENCOUNTER → 2023-09-07 13:51 | Outpatient (BNVA) | payer OTHER, SELFPAY | PROVIDERS: PCP Family Medicine; Visit Provider Family Medicine | DX: I10 Essential (primary) hypertension (principal); R73.03 Prediabetes; R35.1 Nocturia | CPT/HCPCS: 80053; 80061; 82043; 83036; 84153; 85025 ==

== ENCOUNTER 2024-09-16 11:20 | Emergency (ER) | payer OTHER, SELFPAY ==
[2024-09-16] VITALS (8 sets, daily range): BP systolic 130–180; BP diastolic 85–120; PULSE 69–88; RESP 22; TEMP 36.5; O2SAT 93–97
--- NOTE | 2024-09-16 11:32 | ECG_ITS ---
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 Measurements Intervals Mcintosh Rate: 88 P: 27 IA: 193 QRS: -43 QRSD: 138 T: -85 QT: 364 QTc: 442 Interpretive Statements SINUS RHYTHM LEFT AXIS DEVIATION [QRS AXIS < -30] INTRAVENTRICULAR CONDUCTION DELAY [130+ ms QRS DURATION] ANTERIOR MYOCARDIAL INFARCTION , OF INDETERMINATE AGE [40+ ms Q WAVE AND/OR ST/T ABNORMALITY IN V3/V4] Compared to ECG 04/22/2021 12:30:45 Intraventricular conduction delay now present Myocardial infarct finding still present Electronically Signed On 09-19-2024 11:42:55 CDT by Robert Atkinson M.D. [email or web address] [id number]
--- NOTE | 2024-09-16 11:32 | XRR_ITS ---
PROCEDURE INFORMATION: Exam: XR Chest Exam date and time: 09/16/2024 12:06 PM Age: 64 years old Clinical indication: Chest pressure; Chest pain TECHNIQUE: Imaging protocol: Radiologic exam of the chest. Views: 1 view. COMPARISON: CR XR chest 1V portable [id number] 08/30/2021 3:28 AM FINDINGS: Tubes, catheters and devices: None. Lungs: The lungs appear clear. Pleural spaces: No pleural effusion. No pneumothorax. Heart/Mediastinum: Coronary arterial stent identified. The mediastinum appears otherwise unremarkable. Vasculature: Mild atherosclerotic calcification demonstrated within the aorta. Bones/joints: No acute bony abnormality identified. Soft tissues: This study is limited by patient's body habitus. XR/XR chest 1V portable [id number] IMPRESSION: No evidence for an acute cardiopulmonary process.
--- NOTE | 2024-09-16 11:35 | W.ED.CHESTPA ---
HPI - Chest Pain General: Chief Complaint: Chest Pain Stated Complaint: chest pain, sob Time Seen by Provider: 09/16/24 11:26 History of Present Illness: Chief complaint is chest discomfort. Patient states he has had 3 episodes of chest discomfort over the last week and a half Related Data Home Medications ?Medication ?Instructions ?Recorded ?Confirmed omega-3 fatty acids 1,000 mg 1,000 mg PO BID 08/23/19 08/09/24 capsule (Fish Oil Concentrate) Beet Root 1 tab PO BID 12/15/20 08/09/24 inulin 2.5 gram chewable tablet 2.5 g PO 02/12/22 08/09/24 magnesium 250 mg tablet 250 mg PO DAILY 02/12/22 08/09/24 Previous Rx's ?Medication ?Instructions ?Recorded aspirin 81 mg tablet,delayed 81 mg PO DAILY #90 tabs 06/14/20 release sildenafil 50 mg tablet 50 mg PO DAILY PRN sexual activity 03/10/22 #30 tabs nitroglycerin 0.4 mg sublingual See Rx Instructions .Route 12/02/23 tablet .COMPLEX #25 tabs atorvastatin 80 mg tablet 80 mg PO DAILY #90 tabs 05/28/24 clopidogrel 75 mg tablet 75 mg PO DAILY@2100 #90 tabs 05/28/24 lisinopril 30 mg tablet 30 mg PO DAILY #90 tabs 05/28/24 metoprolol tartrate 25 mg tablet 12.5 mg (1/2 x 25 mg) PO BID #90 05/28/24 tabs spironolactone 25 mg tablet 12.5 mg (1/2 x 25 mg) PO DAILY #45 08/10/24 tabs Allergies Allergy/AdvReac Type Severity Reaction Status Date / Time amoxicillin (From Augmentin) Allergy sick to Verified 08/09/24 10:29 stomach clavulanic acid (From Allergy sick to Verified 08/09/24 10:29 Augmentin) stomach PFSH ED PFSH: Medical History Arthritis COVID Tick bite History of colon polyps ASHD (arteriosclerotic heart disease) TIA (transient ischemic attack) Myocardial infarction HTN (hypertension) JORGE ALBERTO (obstructive sleep apnea) Obesity Surgical History Status post colonoscopy with polypectomy (06/18/21) Internal hemorrhoids, sigmoid diverticulosis, polyp in the transverse, descending, sigmoid colon and rectum History of coronary artery stent placement History of colonoscopy 2001 S/P PTCA (percutaneous transluminal coronary angioplasty) 2018 Family History Father Stroke Brother CAD (coronary artery disease) Social History Smoking and tobacco/nicotine status: never used tobacco/nicotine Alcohol intake: never Substance/Drug Use: former Former substance use details: marijuana Physical Exam Narrative: EXAM NARRATIVE: Patient is alert oriented no acute distress. Dry skin with normal color. Neck is supple. Pupils equal and reactive. No icterus. Moist mucous membranes. Heart regular rhythm. Lung sounds are clear. Abdomen soft nontender. Extremities warm well-perfused. No calf tenderness or pitting edema. No rash in exposed areas. Speech is clear. Grossly intact motor. Appropriate affect. Patient calm Course Vital Signs: Vital signs: Vital Signs Temperature 97.7 F 09/16/24 11:26 Pulse Rate 71 09/16/24 13:30 Respiratory Rate 22 H 09/16/24 11:26 Blood Pressure 180/120 09/16/24 13:30 Pulse Oximetry 94 09/16/24 13:30 Oxygen Delivery Me thod Room Air 09/16/24 13:30 MDM - Chest Pain Medical Decision Making Patient presents complaining that he has had 3 episodes of chest discomfort. The longest lasted about 2 minutes and occurred Wednesday before . He states that he had another episode today at rest. Each of the episodes is just a slight dull pressure on his chest without radiation to the back arm or jaw. He gets some nausea with it. No fever. No black bloody stools. No vomiting. No headache. No shortness of breath. No recent mobility or leg pain or swelling or history of PE or DVT. He has a history of heart disease and is on aspirin and Plavix and also has congestive heart failure. He states he has not missed any of his medications. He states his blood pressure has been running on the low side. He states he has not been able to tolerate as much activity or exertion as he gets very weak and fatigued very easily. IL, PE, CHF, anemia, cardiac dysrhythmia, broad differential. Patient currently symptom-free. Patient EKG to my interpretation shows sinus rhythm with a rate of [address] segment changes and interventricular conduction defect and left axis deviation. Will obtain troponin, CBC CMP lipase and chest x-ray. I ordered 324 mg aspirin p.o. Patient denies any pleurisy. No symptoms at rest. Not suggestive of PE by history or dissection. Chest x-ray negative for acute process per radiology. Troponin was negative. CBC CMP do not show significant abnormality to explain patient's symptoms. Added D-dimer without evidence of abnormality found. If delta troponin is negative reasonable to have patient continue his workup on outpatient basis and avoid exertion. I advised patient and discussed with him treatment options and he wants outpatient management. 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 Advised immediate return if concerning chest pain and to not exert himself in any fashion until he is cleared by cardiology. Educated regarding limits of ED evaluation outpatient follow-up and return instructions. Troponin and delta troponin were flat. D-dimer was negative. Patient is requesting outpatient management. I consulted with Dr. Atkinson who will set up outpatient stress test and agrees with plan. I advised patient immediate return instructions and activity restrictions and outpatient follow-up Lab Data 09/16/24 11:49 09/16/24 11:49 Radiology Impressions Chest X-Ray 09/16/24 11:32 IMPRESSION: No evidence for an acute cardiopulmonary process. Laboratory Results WBC 7.82 10^3/uL (3.29-11.43) 09/16/24 11:49 RBC 5.65 10^6/uL (3.85-5.65) 09/16/24 11:49 Hgb 16.40 g/dL (11.27-16.99) 09/16/24 11:49 Hct 49.5 % (37-53) 09/16/24 11:49 MCV 87.6 fl (82-101) 09/16/24 11:49 MCH 29.0 pg (27-33) 09/16/24 11:49 MCHC 33.1 g/dL (30-55) 09/16/24 11:49 RDW 12.5 % (12.1-15.1) 09/16/24 11:49 Plt Count 191 10^3/cmm (157-399) 09/16/24 11:49 MPV 9.7 fL (7.4-10.4) 09/16/24 11:49 Neut % (Auto) 69.2 % 09/16/24 11:49 Lymph % (Auto) 15.3 % 09/16/24 11:49 [place] % (Auto) 6.9 % 09/16/24 11:49 Eos % (Auto) 7.4 % 09/16/24 11:49 Baso % (Auto) 0.9 % 09/16/24 11:49 Neut # (Auto) 5.41 10^3/uL (1.8-7.7) 09/16/24 11:49 Lymph # (Auto) 1.2 10^3/uL (0.8-4.8) 09/16/24 11:49 [place] # (Auto) 0.5 10^3/uL (0.2-0.9) 09/16/24 11:49 Eos # (Auto) 0.6 10^3/uL (0.0-0.8) 09/16/24 11:49 Baso # (Auto) 0.1 10^3/uL (0.0-0.1) 09/16/24 11:49 Nucleated RBC % (auto) 0 % 09/16/24 11:49 Nucleated RBCs # 0.0 /100WBC 09/16/24 11:49 D-Dimer <= 0.27 ug/mLFEU (0-0.59) 09/16/24 11:49 Sodium 135 mmol/L (136-145) L 09/16/24 11:49 Potassium 4.1 mmol/L (3.5-5.1) 09/16/24 11:49 Chloride 103 mmol/L (98-107) 09/16/24 11:49 Carbon Dioxide 22 mmol/L (22-29) 09/16/24 11:49 Anion Gap 14.1 (5-19) 09/16/24 11:49 BUN 14 mg/dL (8-23) 09/16/24 11:49 Creatinine 0.9 mg/dL (0.7-1.2) 09/16/24 11:49 GFR Calculation 85.5 mL/min (90-130) L 09/16/24 11:49 Glucose 133 mg/dL (65-115) H 09/16/24 11:49 Calculated Osmolality 282 mOsm/kg (285-295) L 09/16/24 11:49 Calcium 8.6 mg/dL (8.5-10.5) 09/16/24 11:49 Total Bilirubin 0.7 mg/dL (0.15-1.2) 09/16/24 11:49 AST 33 U/L (0-40) 09/16/24 11:49 ALT 31 U/L (0-41) 09/16/24 11:49 Alkaline Phosphatase 99 U/L (40-130) 09/16/24 11:49 Troponin T Baseline 11 ng/L (0-15) 09/16/24 11:49 Troponin T 120 Minute 11.71 ng/L (0-15) 09/16/24 13:52 Delta Troponin T 0.71 ABS# (0-10) 09/16/24 13:52 NT-Pro-B Natriuret Pep 193 pg/mL (0-125) H 09/16/24 11:49 Total Protein 6.0 g/dL (6.6-8.7) L 09/16/24 11:49 Albumin 4.1 g/dL (3.5-5.2) 09/16/24 11:49 Globulin 1.9 g/dL (1.3-4.6) 09/16/24 11:49 Lipase 29 U/L (13-60) 09/16/24 11:49 All radiology interpretation(s) finalized by discharge Discharge Plan Discharge Patient Disposition: Home Condition: Stable Prescriptions: No Action omega-3 fatty acids [Fish Oil Concentrate] 1,000 mg capsule 1,000 mg PO BID magnesium 250 mg tablet 250 mg PO DAILY inulin 2.5 gram tablet,chewable 2.5 g PO sildenafil 50 mg tablet 50 mg PO DAILY PRN (Reason: sexual activity) Qty: 30 0RF Rx Instructions: administer 30 minutes to 4 hours before activity aspirin 81 mg tablet,delayed release (DR/EC) 81 mg PO DAILY Qty: 90 3RF nitroglycerin 0.4 mg tablet, sublingual See Rx Instructions .ROUTE .COMPLEX Qty: 25 2RF Dose Instruction: PLACE ONE TABLET UNDER TONGUE NEEDED FOR CHEST PAIN EVERY 5 MINUTES, DO NOT EXCEED 3 DOSES PER EPISODE Rx Instructions: PLACE ONE TABLET UNDER TONGUE NEEDED FOR CHEST PAIN EVERY 5 MINUTES, DO NOT EXCEED 3 DOSES PER EPISODE atorvastatin 80 mg tablet 80 mg PO DAILY Qty: 90 3RF metoprolol tartrate 25 mg tablet 12.5 mg PO BID Qty: 90 3RF lisinopril 30 mg tablet 30 mg PO DAILY Qty: 90 3RF clopidogrel 75 mg tablet 75 mg PO DAILY@2100 Qty: 90 3RF spironolactone 25 mg tablet 12.5 mg PO DAILY Qty: 45 3RF Beet Root 1 tab PO BID Discharge Orders: Discharge ED (Routine); Ordered 09/16/24 Ordered By: Sheldon Leahy Referrals: Robert Atkinson M.D [Physician, Cardiology] Referral Note: chest pain Emanuel Nguyen MD [Primary Care Provider, Family Practice] Activity Restrictions/Additional Instructions: Do not exert yourself until cleared by cardiology. Call cardiology on Wednesday morning for stress test as discussed. Come back if you develop chest pain, shortness of breath, weakness, blood pressure [id number], lightheadedness, any worse or concerns. Please follow-up on your test results with your doctor. Print Language: Faroese Coding Level of Care Code ED Management Assistant for Holger Munoz
[2024-09-16] MEDS: aspirin 81 mg Chew Tablet 324 MG PO (11:50)
[2024-09-16 11:56] LABS: Basophils # 0.1 10^3/uL (0.0-0.1); Basophils % 0.9 %; Eosinophils # 0.6 10^3/uL (0.0-0.8); Eosinophils % 7.4 %; Hematocrit 49.5 % (37-53); Lymphocytes # 1.2 10^3/uL (0.8-4.8); Lymphocytes % 15.3 %; Mean Corpuscular HGB Conc 33.1 g/dL (30-55); Mean Corpuscular Volume 87.6 fl (82-101); Mean Platelet Volume 9.7 fL (7.4-10.4); Monocytes # 0.5 10^3/uL (0.2-0.9); Monocytes % 6.9 %; Neutrophils # 5.41 10^3/uL (1.8-7.7); Neutrophils % 69.2 %; Nucleated Red Blood Cells % 0 %; Platelet Count 191 10^3/cmm (157-399); Red Blood Count 5.65 10^6/uL (3.85-5.65); Red Cell Distribution Width 12.5 % (12.1-15.1); White Blood Count 7.82 10^3/uL (3.29-11.43)
[2024-09-16 12:23] LABS: Troponin(5th) Baseline 11 ng/L (0-15)
[2024-09-16 12:30] LABS: Alanine Aminotransferase 31 U/L (0-41); Albumin Level 4.1 g/dL (3.5-5.2); Alkaline Phosphatase 99 U/L (40-130); Anion Gap 14.1 (5-19); Aspartate Amino Transferase 33 U/L (0-40); Blood Urea Nitrogen 14 mg/dL (8-23); Calcium 8.6 mg/dL (8.5-10.5); Carbon Dioxide 22 mmol/L (22-29); Chloride 103 mmol/L (98-107); Creatinine Clr Calc Pharmacy 146.2948; Globulin 1.9 g/dL (1.3-4.6); Glomerular Filtration Rate 85.5 mL/min (90-130); Glucose 133 mg/dL (65-115); Lipase 29 U/L (13-60); NT Pro B Type Natriuretic Pept 193 pg/mL (0-125); Osmolality Calculated 282 mOsm/kg (285-295); Potassium 4.1 mmol/L (3.5-5.1); Sodium 135 mmol/L (136-145); Total Bilirubin 0.7 mg/dL (0.15-1.2)
[2024-09-16 12:52] LABS: D Dimer <= 0.27 ug/mLFEU (0-0.59)
[2024-09-16 14:19] LABS: Troponin 5 2HR 11.71 ng/L (0-15); Troponin 5 2HR Delta 0.71 ABS# (0-10)
== END 2024-09-16 16:11 | disposition home or self-care (01) ==
PROVIDERS: Emergency Provider Emergency Medicine; PCP Family Medicine
DX: R07.89 Other chest pain (principal); Z79.4 Long term (current) use of insulin; Z79.82 Long term (current) use of aspirin; Z79.02 Long term (current) use of antithrombotics/antiplatelets; I10 Essential (primary) hypertension; Z86.73 Personal history of transient ischemic attack (TIA), and cerebral infarction without residual deficits
CPT/HCPCS: 12345; 36415; 71045; 80053; 83690; 83880; 84484; 85025; 85378; 93005; 99285; J9999

== ENCOUNTER 2024-10-18 12:48 | Outpatient (CLI) | payer OTHER, SELFPAY ==
--- NOTE | 2024-10-18 | ECG_ITS ---
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 Interpretive Statements EXERCISE STRESS TEST EXERCISE DATA: The patient was exercised by [place] protocol. Baseline heart rate was 108 beats per minute. Baseline blood pressure was 101/80 millimeters of mercury. Maximal predicted heart rate was 158 beats per minute. Maximum heart rate achieved was 142 which was 89% of the maximum predicted heart rate. Maximum blood pressure was 157/84 millimeters of mercury. Total exercise time was 5 minutes and 31 seconds. Maximum METs achieved was 7.0. The reason for ending the test was completion of protocol. The patient complained of shortness of breath during the stress test, which then resolved at the end of the test. ELECTROCARDIOGRAM: BASELINE: Showed sinus tachycardia, left axis deviation, no significant ST-T changes at the baseline noted. [] EXERCISE: At the peak exercise level, [] No significant ST-T changes suggestive of ischemia noted. PVCs seen. [] RECOVERY: During the recovery period, heart rate dropped appropriately. No significant ST-T changes in the recovery suggestive of ischemia noted. [] CONCLUSION: 1. Exercise capacity is fair 2. Heart rate response was appropriate 3. Blood pressure response was appropriate 4. Symptoms not suggestive of ischemia. 5. Stress test is negative for ischemia Electronically Signed On 10-28-2024 12:27:13 CDT by Robert Atkinson M.D. [email or web address]
[2024-10-18 12:55] VITALS: BMI 38.2
[2024-10-18 13:17] VITALS: BP 123/81; PULSE 87
== END 2024-10-18 12:49 | disposition home or self-care (01) ==
LOC: CDL 12:49
PROVIDERS: PCP Family Medicine; Visit Provider Internal Medicine
DX: R07.9 Chest pain, unspecified (principal); R06.02 Shortness of breath
CPT/HCPCS: 93017

== ENCOUNTER 2024-12-07 07:56 | Outpatient (CLI) | payer OTHER, SELFPAY ==
[2024-12-07 08:04] VITALS: BMI 40.5
--- NOTE | 2024-12-07 08:28 | ECG_ITS ---
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 The perfusion scan will be documented separately. DATA: Baseline heart rate was 68 beats per minute. Baseline blood pressure was 104/81 millimeters of mercury. Target heart rate was 158. Maximum heart rate achieved was 94. which was 59% of the predicted target heart rate. Maximum blood pressure was 115/81 millimeters of mercury. The reason for ending the test was completion of the protocol. The patient did not experience any symptoms. ELECTROCARDIOGRAM: BASELINE: Sinus rhythm. Normal axis. Left bundle branch block, otherwise no ST-T changes suggestive of ischemia noted. No arrhythmia noted. EXERCISE: After Lexiscan injection, no ST-T changes suggestive of ischemic noted. No arrhythmia noted. CONCLUSION: Please note due to baseline abnormality of the EKG specificity and sensitivity of the EKG portion of LexiScan MIBI stress test will be low 1. EKG not suggestive of ischemia 2. Lexiscan injection unremarkable. 3. Perfusion scan will be documented separately. Electronically Signed On 12-30-2024 15:18:11 CDT by MALLY GUY [email or web address] [id number]
--- NOTE | 2024-12-07 08:29 | NMCV_ITS ---
NM tanya perf SPECT r/s* [id number] Trujillo Costa Age: 64 Gender: M : 1960 Exam Date: 12/07/2024 09:00 Ordering Phys: Robert Atkinson M.D ([email or web address]) Technologist: MADELNY Cary Exam Location: [facility] Indications: CP STRESS TEST Please see separate stress test report in [facility] for full findings IMAGE PROTOCOL Rest/Stress 1 Lexiscan Day Radiopharmaceutical Dose (mCi) Administration Site Administered by Rest: Tc-99m 10.5 IV MADELYN Cary Sestamibi Stress:Tc-99m 32.8 IV Sandi Amato, ICE SELLER Sestamibi Rest: 07-Dec-2024 60 Discovery 630 Stress: 07-Dec-2024 30 Discovery 630 0.4mg Lexiscan. Images obtained in supine and prone position. SPECT RESULTS Technical Quality: Good Raw Data Analysis: Normal Image Corrections: No attenuation or motion correction applied Summed Stress Score: 34 Summed Rest Score: 36 Summed Difference Score: 3 PERFUSION FINDINGS Large area of fixed perfusion defect noted in basal to distal inferior basal to distal lateral and mid to distal anteroseptal wall suggestive of old myocardial infarction versus scarring without ischemia. FUNCTIONAL RESULTS (calculated via Gated SPECT) Stress Image LV EF (%): 41 Stress EDV (mL):200 TID: 1.24 Stress ESV (mL):118 FUNCTIONAL FINDINGS: Mid to distal anterior basal to distal inferior and basal to distal lateral wall akinesis IMPRESSIONS Large area of fixed perfusion defect noted in basal to distal inferior basal to distal lateral and mid to distal anteroseptal wall suggestive of old myocardial infarction versus scarring without ischemia. Yulisa Majano MD (Electronically Signed) Final Date: 15 December 2024 19:39 S
[2024-12-07] MEDS: ondansetron 2 mg/ML SDV 2 mL 4 MG IVP (09:51)
[2024-12-07 09:55] VITALS: BP 111/67; PULSE 76
== END 2024-12-07 07:57 | disposition home or self-care (01) ==
LOC: CDL 07:59
PROVIDERS: PCP Family Medicine; Visit Provider Internal Medicine
DX: R06.02 Shortness of breath (principal); I20.0 Unstable angina; R93.1 Abnormal findings on diagnostic imaging of heart and coronary circulation
CPT/HCPCS: 36415; 78452; 93017; 96374; 96375; A9500; J2405; J2785

== ENCOUNTER → 2025-01-16 11:48 | Outpatient (BNVA) | payer OTHER, SELFPAY | PROVIDERS: PCP Family Medicine; Visit Provider Family Medicine | DX: Z12.5 Encounter for screening for malignant neoplasm of prostate (principal); R07.9 Chest pain, unspecified | CPT/HCPCS: 80061; 84153 ==

== ENCOUNTER 2025-01-25 22:50 | Emergency (ER) | payer OTHER, SELFPAY ==
[2025-01-25 22:53] VITALS: BP 107/78; PULSE 100; RESP 18; TEMP 36.6; O2SAT 96; BMI 41.2
--- OUTSIDE RECORDS SUMMARY | 2025-01-25 22:53 | XMS_ITS | Clinical Summary ---
Author Organization [facility] Address [address] [place] [address] Phone Care Team Providers Care Lumber Cutter Name Role Phone Ronna Lopes Primary Care Provider [phone] Allergies No known active allergies Medications clopidogreL (PLAVIX) 75 mg Tablet Take 75 mg by mouth daily. 08/27/2020 Active simvastatin (ZOCOR) 20 mg tablet Take 20 mg by mouth daily. 08/27/2020 Active lisinopriL (PRINIVIL) 10 mg tablet Take 30 mg by mouth daily. 09/15/2020 Active nitroglycerin (NITROSTAT) 0.4 mg Tablet, Sublingual Place 0.4 mg under tongue 1 time daily as needed. 08/28/2020 Active metoprolol tartrate (LOPRESSOR) 25 mg tablet Take 12.5 mg by mouth 2 times daily. 08/27/2020 Active aspirin (ECOTRIN EC) 81 mg Tablet, Delayed Release (E.C.) Take 81 mg by mouth daily. Active Social History Tobacco Use Types Packs/Day Years Used Date Smoking Tobacco: Former Smokeless Tobacco: Never Alcohol Use Standard Drinks/Week Comments Not Currently 0 (1 standard drink = 0.6 oz pur e alcohol) Sex and Gender Information Value Date Recorded Sex Assigned at Not on file Legal Sex Male 2:23 PM CDT Gender Identity Not on file Sexual Orientation Not on file Last Filed Vital Signs Vital Sign Reading Time Taken Comments Blood Pressure 119/68 10/15/2020 11:59 AM CDT Pulse 96 10/15/2020 11:59 AM CDT Temperature 36.6 C (97.8 F) 10/15/2020 11:59 AM CDT Respiratory Rate 18 10/15/2020 11:59 AM CDT Oxygen Saturation 96% 10/15/2020 11:59 AM CDT Inhaled Oxygen Concentration - - Weight 159.2 kg (351 lb) 10/15/2020 11:59 AM CDT Height 200.7 cm (6' 7 ) 10/15/2020 11:59 AM CDT Body Mass Index 39.54 10/15/2020 11:59 AM CDT Plan of Treatment Health Maintenance Due Date Last Done Comments DTAP/TDAP/TD VACCINES (1 - Tdap) 1981 COLORECTAL SCREENING 2007 Colorectal Cancer Screening 2007 FIT-DNA Q 3 years 2007 FIT/FOBT Q 1 year 2007 Flex Sig/CT Colonography Q 5 years 2007 ZOSTER VACCINE (1 of 2) 2012 INFLUENZA VACCINE (#1) 2024 RSV VACCINE (60+ or ) (1 - 1-dose 75+ series) 2037 [facility] Care Teams Lumber Cutter Relationship Specialty Start Date End Date Ronna Lopes DO PCP - General Family Practice 10/02/20
--- NOTE | 2025-01-25 22:57 | ECG_ITS ---
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: : 1960 Requested By: Micha Olmos Order Number: [id number] Josette MD: MALLY GUY Measurements Intervals [place] Rate: 96 P: 19 ND: 193 QRS: -35 QRSD: 148 T: -48 QT: 372 QTc: 471 Interpretive Statements SINUS RHYTHM LEFT AXIS DEVIATION [QRS AXIS < -30] LEFT BUNDLE BRANCH BLOCK [120+ ms QRS DURATION, 80+ ms Q/S IN V1/V2, 85+ ms R IN I/aVL/V5/V6] Compared to ECG 09/16/2024 11:28:58 Left bundle-branch block now present Intraventricular conduction delay no longer present Myocardial infarct finding no longer present Electronically Signed On 01-28-2025 23:14:44 CDT by MALLY GUY [id number]
--- NOTE | 2025-01-25 23:36 | XRR_ITS ---
PROCEDURE INFORMATION: Exam: XR Chest Exam date and time: 01/25/2025 11:45 PM Age: 64 years old Clinical indication: Shortness of breath; Additional info: SOB, HX heart disease, diarrhea TECHNIQUE: Imaging protocol: Radiologic exam of the chest. Views: 1 view. COMPARISON: CR XR chest 1V portable [id number] 09/16/2024 12:06 PM FINDINGS: Lungs: Unremarkable. No consolidation. Pleural spaces: Unremarkable. No pleural effusion. No pneumothorax. Heart/Mediastinum: Unremarkable. No cardiomegaly. Bones/joints: Unremarkable. Single-view. XR/XR chest 1V portable [id number] IMPRESSION: No acute findings.
[2025-01-25 23:50] LABS: Hematocrit 49.5 % (37-53); Hemoglobin 16.70 g/dL (11.27-16.99); Mean Corpuscular HGB Conc 33.7 g/dL (30-55); Mean Corpuscular Hemoglobin 28.9 pg (27-33); Mean Corpuscular Volume 85.6 fl (82-101); Nucleated Red Blood Cells % 0 %; Platelet Count 192 10^3/cmm (157-399); Red Blood Count 5.78 10^6/uL (3.85-5.65); White Blood Count 10.34 10^3/uL (3.29-11.43)
[2025-01-25 23:53] VITALS: BP 93/66; PULSE 91; RESP 18; O2SAT 98
[2025-01-26] VITALS (8 sets, daily range): BP systolic 85–111; BP diastolic 52–69; PULSE 72–84; RESP 18; O2SAT 92–97
--- NOTE | 2025-01-26 00:05 | W.ED.SOB ---
HPI - SOB/Dyspnea General: Chief Complaint: Shortness of Breath/Dyspnea Stated Complaint: High HR SOB breathing heavy allergic reaction Time Seen by Provider: 01/25/25 23:24 History of Present Illness: HPI Narrative: 64-year-old male past medical history significant for hypertension, prediabetes, CAD with MD in the past status post stenting, TIA, no reported history of heart failure but patient is on spironolactone on a preventative basis, obesity with JORGE ALBERTO, presenting to the emergency department with 1 day history of diarrhea 10 episodes in the last day, initially reports that he had a shingles vaccination to the left upper extremity on Wednesday, on Wednesday felt somewhat weak and nauseous but today developed saroj diarrhea, went to bed around 8 PM and woke up at around 10 PM with significant shortness of breath and reports that his heart rate was labile ranging from the 120s to 40s, he reports compliance with all of his prescribed medications, he reports that right now he feels generally weak but not acutely short of breath, he denies recent fever, denies vomiting, denies abdominal pain, denies significant weight change or change in urine output or color or consistency recently Related Data Home Medications ?Medication ?Instructions ?Recorded ?Confirmed omega-3 fatty acids 1,000 mg 1,000 mg PO BID 08/23/19 01/18/25 capsule (Fish Oil Concentrate) Beet Root 1 tab PO BID 12/15/20 01/18/25 inulin 2.5 gram chewable tablet 2.5 g PO 02/12/22 01/18/25 magnesium 250 mg tablet 250 mg PO DAILY 02/12/22 01/18/25 Previous Rx's ?Medication ?Instructions ?Recorded aspirin 81 mg tablet,delayed 81 mg PO DAILY #90 tabs 06/14/20 release sildenafil 50 mg tablet 50 mg PO DAILY PRN sexual activity 03/10/22 #30 tabs atorvastatin 80 mg tablet 80 mg PO DAILY #90 tabs 05/28/24 clopidogrel 75 mg tablet 75 mg PO DAILY@2100 #90 tabs 05/28/24 lisinopril 30 mg tablet 30 mg PO DAILY #90 tabs 05/28/24 metoprolol tartrate 25 mg tablet 12.5 mg (1/2 x 25 mg) PO BID #90 05/28/24 tabs spironolactone 25 mg tablet 12.5 mg (1/2 x 25 mg) PO DAILY #45 08/10/24 tabs nitroglycerin 0.4 mg sublingual See Rx Instructions .Route 12/26/24 tablet .COMPLEX #25 tabs COVID vac 24-25(12up)(Pfi)(PF) 30 0.3 ml IM ONCE #3 mL 01/16/25 mcg/0.3 mL IM syringe varicella-zoster glycoE [id number] 0.5 ml IM ONCE #1 ea 01/16/25 adj(PF) 50 mcg/0.5 mL IM susp, kit (Shingrix (PF)) famotidine 20 mg tablet (Pepcid AC) 20 mg PO BID 1 week #14 tabs 01/26/25 loperamide 2 mg capsule 2 mg PO Q6H PRN loose stool 3 days 01/26/25 (Anti-Diarrheal (loperamide)) #12 caps Allergies Allergy/AdvReac Type Severity Reaction Status Date / Time amoxicillin (From Augmentin) Allergy sick to Verified 01/25/25 22:59 stomach clavulanic acid (From Allergy sick to Verified 01/25/25 22:59 Augmentin) stomach PFSH ED PFSH: Medical History Arthritis COVID Tick bite History of colon polyps ASHD (arteriosclerotic heart disease) TIA (transient ischemic attack) Myocardial infarction HTN (hypertension) JORGE ALBERTO (obstructive sleep apnea) Obesity Surgical History Status post colonoscopy with polypectomy (06/18/21) Internal hemorrhoids, sigmoid diverticulosis, polyp in the transverse, descending, sigmoid colon and rectum History of coronary artery stent placement History of colonoscopy 2001 S/P PTCA (percutaneous transluminal coronary angioplasty) 2018 Family History Father Stroke Brother CAD (coronary artery disease) Social History Smoking and tobacco/nicotine status: never used tobacco/nicotine Alcohol intake: never Substance/Drug Use: former Former substance use details: marijuana Physical Exam Narrative: EXAM NARRATIVE: Gen: A&Ox4, no acute distress, nontoxic appearing, obesity noted HEENT: Normocephalic, atraumatic, no scleral icterus, external ears normal, dry mucous membranes Neck: Supple, full range of motion, no observable masses Lungs: No Respiratory distress, Lungs clear to auscultation bilaterally no rales, rhonchi, wheezing, saturating 98% on room air, no increased work of breathing, respiratory rate normal, speaking in full sentences CV: Regular rate and rhythm, no murmur, no pitting edema to lower extremities bilaterally Abdomen: Soft, nondistended, nontender to palpation MSK: No joint swelling, FROM all 4 extremities Skin: No rashes, petechiae, lesions. Normal color per patient. Neuro: Alert and oriented, no slurred speech, sensation and strength grossly intact all 4 extremities Psych: Appropriate for situation. Course Reevaluation(s): Reevaluation #1: Patient reevaluated after first liter of fluid, blood pressure downtrending now hypotensive, clinically he feels and appears better however given hypotension will start sepsis protocol at this time, give 30 cc/kg of ideal body weight fluid bolus ideal body weight 94 kg per calculation will give 3 L total volume normal saline, initial labs hemolyzed pending repeat draw Time: 00:51 Reevaluation #2: BP currently 104/69, heart rate 70s, no hypoxia, patient feels markedly better after fluids, no abdominal pain, workup reassuring without significant leukocytosis or lactic acidosis, no DANNY or significant electrolyte derangements, there was an elevated proBNP but no evidence of significant peripheral edema or central edema on chest x-ray, stable for discharge with close monitoring of symptoms and return precautions Time: 02:20 Vital Signs: Vital signs: Vital Signs Temperature 97.9 F 01/25/25 22:53 Pulse Rate 78 01/26/25 02:00 Respiratory Rate 18 01/26/25 01:00 Blood Pressure 95/60 01/26/25 02:00 Pulse Oximetry 93 01/26/25 02:00 Oxygen Delivery Me thod Room Air 01/26/25 01:00 MDM - SOB/Dyspnea Medical Decision Making 64-year-old male history of cardiac disease, presenting to the emergency department with significant diarrhea without abdominal pain starting today 2 days after getting his shingles vaccination which he thinks is causing the symptoms, developed shortness of breath this evening while in bed with associated labile heart rates per his oximeter. In the emergency department patient appears to be in sinus rhythm with stable heart rate pulse oxygen, he does appear somewhat hypovolemic, will give volume resuscitation, check electrolytes and kidney function, chest x-ray, reassess for disposition. Lab Data Labs with no leukocytosis, normal lactate, borderline hyponatremia 135, mild acidosis 20 bicarb, no DANNY, normal electrolytes, normal kidney function, borderline troponin 16 stable on repeat 01/25/25 23:40 01/26/25 01:03 Labs/Radiology: Radiology Impressions Chest X-Ray 01/25/25 23:36 IMPRESSION: No acute findings. Laboratory Results WBC 10.34 10^3/uL (3.29-11.43) 01/25/25 23:40 RBC 5.78 10^6/uL (3.85-5.65) H 01/25/25 23:40 Hgb 16.70 g/dL (11.27-16.99) 01/25/25 23:40 Hct 49.5 % (37-53) 01/25/25 23:40 MCV 85.6 fl (82-101) 01/25/25 23:40 MCH 28.9 pg (27-33) 01/25/25 23:40 MCHC 33.7 g/dL (30-55) 01/25/25 23:40 RDW 12.4 % (12.1-15.1) 01/25/25 23:40 Plt Count 192 10^3/cmm (157-399) 01/25/25 23:40 MPV 10.2 fL (7.4-10.4) 01/25/25 23:40 Neut % (Auto) 87.1 % 01/25/25 23:40 Lymph % (Auto) 6.5 % 01/25/25 23:40 [place] % (Auto) 5.5 % 01/25/25 23:40 Eos % (Auto) 0.4 % 01/25/25 23:40 Baso % (Auto) 0.3 % 01/25/25 23:40 Neut # (Auto) 9.01 10^3/uL (1.8-7.7) H 01/25/25 23:40 Lymph # (Auto) 0.7 10^3/uL (0.8-4.8) L 01/25/25 23:40 [place] # (Auto) 0.6 10^3/uL (0.2-0.9) 01/25/25 23:40 Eos # (Auto) 0.0 10^3/uL (0.0-0.8) 01/25/25 23:40 Baso # (Auto) 0.0 10^3/uL (0.0-0.1) 01/25/25 23:40 Nucleated RBC % (auto) 0 % 01/25/25 23:40 Nucleated RBCs # 0.0 /100WBC 01/25/25 23:40 Sodium 135 mmol/L (136-145) L 01/26/25 01:03 Potassium 4.2 mmol/L (3.5-5.1) 01/26/25 01:03 Chloride 103 mmol/L (98-107) 01/26/25 01:03 Carbon Dioxide 20 mmol/L (22-29) L 01/26/25 01:03 Anion Gap 16.2 (5-19) 01/26/25 01:03 BUN 15 mg/dL (8-23) 01/26/25 01:03 Creatinine 1.1 mg/dL (0.7-1.2) 01/26/25 01:03 GFR Calculation 67.8 mL/min (90-130) L 01/26/25 01:03 Glucose 136 mg/dL (65-115) H 01/26/25 01:03 Calculated Osmolality 283 mOsm/kg (285-295) L 01/26/25 01:03 Lactic Acid 1.4 mmol/L (0.5-2.2) 01/26/25 01:03 Calcium 8.0 mg/dL (8.5-10.5) L 01/26/25 01:03 Magnesium 1.7 mg/dL (1.7-2.3) 01/26/25 01:03 Total Bilirubin 1.0 mg/dL (0.15-1.2) 01/26/25 01:03 AST 27 U/L (0-40) 01/26/25 01:03 ALT 25 U/L (0-41) 01/26/25 01:03 Alkaline Phosphatase 91 U/L (40-130) 01/26/25 01:03 Troponin T Baseline 16 ng/L (0-15) H 01/25/25 23:40 Troponin T 120 Minute 16.31 ng/L (0-15) H 01/26/25 01:03 Delta Troponin T 0.31 ABS# (0-10) 01/26/25 01:03 NT-Pro-B Natriuret Pep 703 pg/mL (0-125) H 01/26/25 01:03 Total Protein 5.8 g/dL (6.6-8.7) L 01/26/25 01:03 Albumin 3.8 g/dL (3.5-5.2) 01/26/25 01:03 Globulin 2.0 g/dL (1.3-4.6) 01/26/25 01:03 Lipase 22 U/L (13-60) 01/26/25 01:03 Influenza A (PCR) Negative (Negative) 01/25/25 23:53 Influenza Type B (PCR) Negative (Negative) 01/25/25 23:53 RSV (PCR) Negative (Negative) 01/25/25 23:53 SARS-CoV-2 (PCR) Negative (Negative) 01/25/25 23:53 All radiology interpretation(s) finalized by discharge ED provider radiology interpretation(s): Chest x-ray negative for acute pulmonary abnormality no pneumonia or pulmonary edema EKG Data EKG 1: I personally reviewed and interpreted this EKG as follows: EKG Interpretation Date: 01/26/25 EKG interpretation time: 00:13 Prior EKG tracings: available for review (09/16/2024) Ischemic changes: poor r wave progression Interpretation: Sinus rhythm at 96 bpm, left axis deviation, left bundle branch block, no STEMI by modified Sgarbossa criteria, QTc 426 ms, compared to EKG obtained August 2024 no significant interval change EKG 2: I personally reviewed and interpreted this EKG as follows: EKG Interpretation Date: 01/26/25 EKG interpretation time: 01:52 Interpretation: Sinus rhythm at 72 bpm with first-degree AV block, left bundle branch block noted, no STEMI by modified Sgarbossa criteria, QTc 460 ms, normal axis Discharge Plan Discharge Patient Disposition: Home Clinical Impression: Dehydration Diarrhea Qualifiers: Diarrhea type: unspecified type Qualified Code(s): R19.7 - Diarrhea, unspecified Condition: Stable Prescriptions: New loperamide [Anti-Diarrheal (loperamide)] 2 mg capsule 2 mg PO Q6H PRN (Reason: loose stool) 3 Days Qty: 12 0RF famotidine [Pepcid AC] 20 mg tablet 20 mg PO BID 7 Days Qty: 14 0RF No Action omega-3 fatty acids [Fish Oil Concentrate] 1,000 mg capsule 1,000 mg PO BID magnesium 250 mg tablet 250 mg PO DAILY inulin 2.5 gram tablet,chewable 2.5 g PO sildenafil 50 mg tablet 50 mg PO DAILY PRN (Reason: sexual activity) Qty: 30 0RF Rx Instructions: administer 30 minutes to 4 hours before activity Shingrix (PF) 50 mcg/0.5 mL suspension for reconstitution 0.5 ml IM ONCE Qty: 1 0RF COVID vac 24-25(12up)(Pfi)(PF) 30 mcg/0.3 mL syringe 0.3 ml IM ONCE Qty: 3 0RF Rx Instructions: please administer 25-26 vaccine. order set not in our computers yet aspirin 81 mg tablet,delayed release (DR/EC) 81 mg PO DAILY Qty: 90 3RF atorvastatin 80 mg tablet 80 mg PO DAILY Qty: 90 3RF metoprolol tartrate 25 mg tablet 12.5 mg PO BID Qty: 90 3RF lisinopril 30 mg tablet 30 mg PO DAILY Qty: 90 3RF clopidogrel 75 mg tablet 75 mg PO DAILY@2100 Qty: 90 3RF spironolactone 25 mg tablet 12.5 mg PO DAILY Qty: 45 3RF nitroglycerin 0.4 mg tablet, sublingual See Rx Instructions .ROUTE .COMPLEX Qty: 25 2RF Dose Instruction: PLACE ONE TABLET UNDER TONGUE NEEDED FOR CHEST PAIN EVERY 5 MINUTES, DO NOT EXCEED 3 DOSES PER EPISODE Rx Instructions: PLACE ONE TABLET UNDER TONGUE NEEDED FOR CHEST PAIN EVERY 5 MINUTES, DO NOT EXCEED 3 DOSES PER EPISODE Beet Root 1 tab PO BID Discharge Orders: Discharge ED (Routine); Ordered 01/26/25 Ordered By: Micha Olmos Referrals: Emanuel Nguyen MD [Primary Care Provider, Family Practice] Patient Instructions: Patient Portal & Zeinab Instructions, Diarrhea - Adult, Dehydration (ED) Print Language: Paraguayan Coding Level of Care Code ED Director Of Casino Marketing for Holger Munoz
[2025-01-26 00:15] LABS: Troponin(5th) Baseline 16 ng/L (0-15)
[2025-01-26 00:37] LABS: Respiratory Syncytial Virus Ce NEGATIVE (Negative); SARS-CoV-2 PCR NEGATIVE (Negative)
[2025-01-26] MEDS: cefTRIAXone 2,000 mg SDV 2000 MG IVP (01:21)
[2025-01-26] MEDS: sodium chloride 0.9% (100 ml) 100 ML 200 ML (01:22)
[2025-01-26 01:41] LABS: Lactic Sepsis W/Reflex 1.4 mmol/L (0.5-2.2)
--- NOTE | 2025-01-26 01:45 | ECG_ITS ---
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
[2025-01-26 01:48] LABS: Alanine Aminotransferase 25 U/L (0-41); Albumin Level 3.8 g/dL (3.5-5.2); Alkaline Phosphatase 91 U/L (40-130); Anion Gap 16.2 (5-19); Aspartate Amino Transferase 27 U/L (0-40); Blood Urea Nitrogen 15 mg/dL (8-23); Calcium 8.0 mg/dL (8.5-10.5); Carbon Dioxide 20 mmol/L (22-29); Chloride 103 mmol/L (98-107); Creatinine Clr Calc Pharmacy 120.8039; Globulin 2.0 g/dL (1.3-4.6); Glucose 136 mg/dL (65-115); Lipase 22 U/L (13-60); Magnesium 1.7 mg/dL (1.7-2.3); Osmolality Calculated 283 mOsm/kg (285-295); Potassium 4.2 mmol/L (3.5-5.1); Sodium 135 mmol/L (136-145); Total Protein 5.8 g/dL (6.6-8.7)
[2025-01-26 01:51] LABS: NT Pro B Type Natriuretic Pept 703 pg/mL (0-125)
[2025-01-26 02:08] LABS: Troponin 5 2HR 16.31 ng/L (0-15); Troponin 5 2HR Delta 0.31 ABS# (0-10)
== END 2025-01-26 02:38 | disposition home or self-care (01) ==
PROVIDERS: Emergency Provider Student in an Organized Health Care Education/Training Program; PCP Family Medicine
DX: E86.0 Dehydration (principal); R19.7 Diarrhea, unspecified; Z79.82 Long term (current) use of aspirin; Z79.02 Long term (current) use of antithrombotics/antiplatelets; Z11.52 Encounter for screening for COVID-19; I10 Essential (primary) hypertension; Z86.73 Personal history of transient ischemic attack (TIA), and cerebral infarction without residual deficits
CPT/HCPCS: 36415; 71045; 80053; 83605; 83690; 83735; 83880; 84484; 85025; 87040; 87637; 93005; 96361; 96374; 99285; J0696; J7030

== ENCOUNTER 2025-03-06 05:43 | Day surgery (SDC) | payer OTHER, SELFPAY ==
[2025-03-06 05:58] VITALS: BMI 40.5
[2025-03-06 06:09] VITALS: BP 141/99; PULSE 87; RESP 18; TEMP 36.2; O2SAT 93
--- NOTE | 2025-03-06 06:39 | ANES.PREANE2 ---
Pre-Anesthetic Assessment Height/Weight: Height 6 ft 7 in Weight 360 lb Temp Pulse Resp BP Pulse Ox O2 Del Method 97.1 F L 87 18 141/99 93 Room Air 03/06/25 06:09 03/06/25 06:09 03/06/25 06:09 03/06/25 06:09 03/06/25 06:09 03/06/25 06:09 Preop Diagnosis: Screening colonoscopy Operation Date: 03/06/25 07:00 Proposed Procedures p Colonoscopy 20511 G0121 Z12.11(Not Applicable) - Jorje Sutherland MD Was Beta Santosh taken within 24 hours: Yes Was Clonidine taken within 24 hours: N/A Last intake: Intake Last Liquid Date 03/05/25 Last Liquid Time 21:00 Last Solid Date 03/04/25 Social No alcohol and No tobacco Exam alert, oriented x 3, clear to auscultation bilaterally and regular rate & rhythm Airway Submandibular: within normal limits Cervical ROM: within normal limits Mallampati: Class III Dentition: full Anesthetic Plan ASA status: 4 Anesthesia: MAC Other: No prior issues with anesthesia Completed bowel prep History of hypertension on lisinopril, spironolactone and metoprolol CAD history, s/p PCI. On chronic Plavix. Patient states that he had an episode of chest pain on Wednesday. Took nitro x 2 which relieved symptoms. Called cardiology office and they told him it is most likely due to stopping the Plavix after being on Plavix for many years Patient was seen in the ED about a month ago and was told he had food poisoning. Labs reviewed from 01/25/2025 and acceptable for procedure today EKG showing sinus rhythm with LBBB and first-degree AV block Patient had a negative stress test in November of this year Plan for MAC anesthesia Medications/Allergies Home Medications ?Medication ?Instructions ?Recorded ?Confirmed ?Last Taken ?Type omega-3 fatty acids 1,000 mg 1,000 mg PO BID 08/23/19 02/28/25 03/04/25 History capsule (Fish Oil Concentrate) aspirin 81 mg tablet,delayed 81 mg PO DAILY #90 tabs 06/14/20 02/28/25 03/04/25 Rx release Beet Root 1 tab PO BID 12/15/20 02/28/25 03/04/25 History inulin 2.5 gram chewable tablet 2.5 g PO DAILY 02/12/22 02/28/25 03/05/25 History magnesium 250 mg tablet 250 mg PO DAILY 02/12/22 02/28/25 03/05/25 History sildenafil 50 mg tablet 50 mg PO DAILY PRN sexual activity 03/10/22 03/06/25 Unknown Rx #30 tabs nitroglycerin 0.4 mg sublingual See Rx Instructions .Route 12/26/24 03/05/25 03/02/25 Rx tablet .COMPLEX #25 tabs atorvastatin 80 mg tablet 80 mg PO DAILY #90 tabs 02/12/25 02/28/25 03/05/25 Rx clopidogrel 75 mg tablet 75 mg PO DAILY@2100 #90 tabs 02/12/25 02/28/25 03/04/25 Rx lisinopril 30 mg tablet 30 mg PO DAILY #90 tabs 02/12/25 02/28/25 03/05/25 Rx metoprolol tartrate 25 mg tablet 12.5 mg (1/2 x 25 mg) PO BID #90 02/12/25 02/28/25 03/05/25 Rx tabs spironolactone 25 mg tablet 12.5 mg PO BEDTIME 03/05/25 03/05/25 03/04/25 History Allergies Allergy/AdvReac Type Severity Reaction Status Date / Time amoxicillin (From Augmentin) Allergy sick to Verified 02/28/25 11:21 stomach clavulanic acid (From Allergy sick to Verified 02/28/25 11:21 Augmentin) stomach Current Medications Generic Name Dose Route Start Last Admin Trade Name Freq PRN Reason Stop Dose Admin Sodium Chloride 1,000 mls @ 15 mls/hr 03/06/25 05:57 03/06/25 06:15 Sodium Chloride 0.9% IV 03/07/25 05:56 15 mls/hr .Q24H PRN Administration COLONOSCOPY FLUIDS PFSH Anesthesia Medical History (Updated 02/03/25 @ 00:00 by SHARONDA Garcia) Arthritis COVID Tick bite History of colon polyps ASHD (arteriosclerotic heart disease) TIA (transient ischemic attack) Myocardial infarction HTN (hypertension) JORGE ALBERTO (obstructive sleep apnea) Obesity Surgical History Status post colonoscopy with polypectomy (06/18/21) Internal hemorrhoids, sigmoid diverticulosis, polyp in the transverse, descending, sigmoid colon and rectum History of coronary artery stent placement History of colonoscopy 2001 S/P PTCA (percutaneous transluminal coronary angioplasty) 2018 Family History Father Stroke Brother CAD (coronary artery disease) Social History Smoking and tobacco/nicotine status: never used tobacco/nicotine Alcohol intake: never Substance/Drug Use: former Former substance use details: marijuana Data Anesthesia Cardiac Studies: Echocardiogram 10/31/21 Sestamibi Stress Test (Cardiology) 12/07/24 Cardiac Event Monitor 11/27/20 Holter Monitor 09/02/20
--- NOTE | 2025-03-06 07:12 | W.PM.OPSFHP ---
Same Day Surgery H&P Indication for Procedure/HPI DATE OF PROCEDURE: March 06, 2025 CHIEF COMPLAINT/INDICATIONFOR SURGICAL PROCEDURE: Large colon polyp PREOP DIAGNOSIS: Large colon polyp PLANNED PROCEDURE: Operation Date: 03/06/25 07:00 Proposed Procedures p Colonoscopy [id number] G0121 Z12.11(Not Applicable) - Jorje Sutherland MD Medications/Allergies* Home Medications ?Medication ?Instructions ?Recorded ?Confirmed ?Type omega-3 fatty acids 1,000 mg 1,000 mg PO BID 08/23/19 02/28/25 History capsule (Fish Oil Concentrate) Beet Root 1 tab PO BID 12/15/20 02/28/25 History inulin 2.5 gram chewable tablet 2.5 g PO DAILY 02/12/22 02/28/25 History magnesium 250 mg tablet 250 mg PO DAILY 02/12/22 02/28/25 History spironolactone 25 mg tablet 12.5 mg PO BEDTIME 03/05/25 03/05/25 History Allergies/Adverse Reactions Allergy/AdvReac Type Severity Reaction Status Date / Time amoxicillin (From Augmentin) Allergy sick to Verified 02/28/25 11:21 stomach clavulanic acid (From Allergy sick to Verified 02/28/25 11:21 Augmentin) stomach Current Medications: Generic Name Dose Route Start Last Admin Trade Name Freq PRN Reason Stop Dose Admin Sodium Chloride 1,000 mls @ 15 mls/hr 03/06/25 05:57 03/06/25 06:15 Sodium Chloride 0.9% IV 03/07/25 05:56 15 mls/hr .Q24H PRN Administration COLONOSCOPY FLUIDS Pertinent History/Comorbid Conditions* Medical History (Updated 02/03/25 @ 00:00 by SHARONDA Garcia) Arthritis COVID Tick bite History of colon polyps ASHD (arteriosclerotic heart disease) TIA (transient ischemic attack) Myocardial infarction HTN (hypertension) JORGE ALBERTO (obstructive sleep apnea) Obesity Surgical History (Updated 06/18/21 @ 08:06 by Rajat Lundberg MD) Status post colonoscopy with polypectomy (06/18/21) Internal hemorrhoids, sigmoid diverticulosis, polyp in the transverse, descending, sigmoid colon and rectum History of coronary artery stent placement History of colonoscopy 2001 S/P PTCA (percutaneous transluminal coronary angioplasty) 2018 Family History (Updated 08/22/19 @ 11:20 by Jenelle Truro, RN) CAD (coronary artery disease) Brother Stroke Father Social History Smoking and tobacco/nicotine status: never used tobacco/nicotine Alcohol intake: never Substance/Drug Use: former Former substance use details: marijuana Pertinent Exam Findings alert, oriented x 3, clear to auscultation bilaterally, regular rate & rhythm and procedure specific exam findings abdomen soft, nt, nd Recommendations Risks and benefits of procedure reviewed and Patient/family agree to proceed Surgery/Procedure today Coding Level of Care Code Acute Code for g Tammy
[2025-03-06 07:41] VITALS: BP 112/81; PULSE 76; RESP 18; TEMP 36.1; O2SAT 91
[2025-03-06 07:50] VITALS: BP 117/78; PULSE 66; RESP 18; O2SAT 93
[2025-03-06 08:00] VITALS: BP 118/76; PULSE 75; RESP 18; O2SAT 92
--- NOTE | 2025-03-06 08:20 | ANE.PACU2 ---
Inpatient post-anesthesia follow up: Airway intact: Yes Vital signs: Temperature 97.0 F Pulse Rate 75 Respiratory Rate 18 Blood Pressure 118/76 Pulse Oximetry 92 Oxygen Delivery Me thod Room Air Oxygen Flow Rate 5 Fraction of Inspir ed Oxygen Hydration adequate: Yes Nausea and vomiting: No Pain level: 1 Mental status: Baseline
== END 2025-03-06 08:20 | disposition home or self-care (01) ==
PROVIDERS: PCP Family Medicine; Visit Provider Student in an Organized Health Care Education/Training Program
PROC: 0DJD8ZZ Inspection of Lower Intestinal Tract, Via Natural or Artificial Opening Endoscopic (ICD-10-PCS; CPT 45378; principal; 2025-03-06 07:00)
DX: D12.6 Benign neoplasm of colon, unspecified (principal); K57.30 Diverticulosis of large intestine without perforation or abscess without bleeding; D12.2 Benign neoplasm of ascending colon; Z86.0100 Personal history of colon polyps, unspecified; I25.10 Atherosclerotic heart disease of native coronary artery without angina pectoris; Z86.73 Personal history of transient ischemic attack (TIA), and cerebral infarction without residual deficits; G47.33 Obstructive sleep apnea (adult) (pediatric); I10 Essential (primary) hypertension; E66.9 Obesity, unspecified; Z68.41 Body mass index [BMI] 40.0-44.9, adult; Z79.02 Long term (current) use of antithrombotics/antiplatelets; Z79.82 Long term (current) use of aspirin
CPT/HCPCS: 45380; 45385; 88305; J2405; J2704; J3490; J7030

== ENCOUNTER 2025-04-06 09:33 | Emergency (ER) | payer OTHER, SELFPAY ==
--- OUTSIDE RECORDS SUMMARY | 2025-04-06 09:42 | XMS_ITS | Encounter Summary ---
Author Organization [facility] Address [address] [place] [address] Care Team Providers Care Customer Acquisition Manager Name Role Phone Ronna Lopes DO Primary Care Provider [phone]- [phone] Encounter Details Date Type Department Care Team (Late st Contact Info) Description 04/03/2025 External Device Data [facility] Provider, Abstract NO ADDRESS ON FILE Social History Tobacco Use Types Packs/Day Years Used Date Smoking Tobacco: Former Smokeless Tobacco: Never Alcohol Use Standard Drinks/Week Comments Not Currently 0 (1 standard drink = 0.6 oz pur e alcohol) Sex and Gender Information Value Date Recorded Sex Assigned at Not on file Legal Sex Male 2:23 PM CDT Gender Identity Not on file Sexual Orientation Not on file documented as of this encounter Plan of Treatment Upcoming Encounters Date Type Department Care Team (Late st Contact Info) Description 12/25/2025 3:00 PM CDT Appointment [facility] [address] [place] [id number] Primitivo Duran MD [address] [place] [address] documented as of this encounter Visit Diagnoses Not on filedocumented in this encounter Care Teams Customer Acquisition Manager Relationship Specialty Start Date End Date Ronna Lopes DO PCP - General 10/02/20 documented as of this encounter
--- OUTSIDE RECORDS SUMMARY | 2025-04-06 09:42 | XMS_ITS | Clinical Summary ---
Author Organization [facility] Address [address] [place] [address] Phone Care Team Providers Care Hospice Volunteer Coordinator Name Role Phone Ronna Lopes Primary Care Provider [phone]- [phone] Allergies Active Allergy Reactions Criticality Noted Date Comments Amoxicillin-Pot Clavulanate Nausea and Vomiting Low 03/03/2023 Medications metoprolol tartrate (LOPRESSOR) 25 mg tablet Take 12.5 mg by mouth 2 times daily. 08/27/2020 Active clopidogreL (PLAVIX) 75 mg Tablet Take 75 mg by mouth daily. 08/27/2020 Active aspirin (ECOTRIN EC) 81 mg Tablet, Delayed Release (E.C.) Take 81 mg by mouth daily. 10/15/2020 Active nitroglycerin (NITROSTAT) 0.4 mg Tablet, Sublingual Place 0.4 mg under tongue 1 time daily as needed. 08/28/2020 Active lisinopriL (PRINIVIL) 10 mg tablet Take 30 mg by mouth daily. 09/15/2020 Active spironolactone (ALDACTONE) 25 mg tablet Take 1 Tablet (25 mg) by mouth daily. 90 Tablet 3 06/25/2021 Active atorvastatin (LIPITOR) 80 mg tablet 12/10/2022 Active Active Problems Problem Noted Date Diagnosed Date TIA (transient ischemic attack) 02/25/2021 Coronary artery disease 02/25/2021 PVC (premature ventricular contraction) 02/26/20 21 Encounters Date Type Department Care Team Description 04/03/2025 External Device Data [facility]STRACTION Provider, Abstract 03/06/2025 External Device Data [facility] Provider, Abstract 02/07/2025 External Device Data [facility]STRACTION Provider, Abstract from Last 3 Months Social History Tobacco Use Types Packs/Day Years Used Date Smoking Tobacco: Former Smokeless Tobacco: Never Tobacco Cessation:Counseling Given: Not Answered Alcohol Use Standard Drinks/Week Comments Not Currently 0 (1 standard drink = 0.6 oz pur e alcohol) Sex and Gender Information Value Date Recorded Sex Assigned at Not on file Legal Sex Male 2:23 PM CDT Gender Identity Not on file Sexual Orientation Not on file Last Filed Vital Signs Vital Sign Reading Time Taken Comments Blood Pressure 142/89 12/26/2024 1:08 PM CDT Pulse 80 12/26/2024 1:08 PM CDT Temperature 36.4 C (97.5 F) 12/26/2024 1:08 PM CDT Respiratory Rate 17 12/26/2024 1:08 PM CDT Oxygen Saturation 95% 12/26/2024 1:08 PM CDT Inhaled Oxygen Concentration - - Weight 166.5 kg (367 lb) 12/26/2024 1:08 PM CDT Height 200.7 cm (6' 7 ) 12/26/2024 1:08 PM CDT Body Mass Index 41.34 12/26/2024 1:08 PM CDT Plan of Treatment Upcoming Encounters Date Type Department Care Team (Late st Contact Info) Description 12/25/2025 3:00 PM CDT Appointment [facility] [address] [place] [address] Primitivo Duran MD [address] [place] [address] Health Maintenance Due Date Last Done Comments Pre-Diabetes and Diabetes Screening 1962 DTAP/TDAP/TD VACCINES (1 - Tdap) 1981 COLORECTAL SCREENING 2007 Colorectal Cancer Screening 2007 FIT-DNA Q 3 years 2007 FIT/FOBT Q 1 year 2007 Flex Sig/CT Colonography Q 5 years 2007 RSV VACCINE (60+ or ) (1 - Risk 50-74 years 1-dose series) 2012 ZOSTER VACCINE (1 of 2) 2012 INFLUENZA VACCINE (#1) 2024 04/09/2023 COVID-19 Vaccine ( season) 2024 03/21/2021, 07/16/2020, 06/18/2020 Insurance [facility] [place] Care Teams Hospice Volunteer Coordinator Relationship Specialty Start Date End Date Ronna Lopes DO PCP - General 10/02/20
--- OUTSIDE RECORDS SUMMARY | 2025-04-06 09:42 | XMS_ITS | Clinical Summary ---
Author Organization [facility] Address [address] [place] [address] Phone Care Team Providers Care Boarding Kennel Or Cattery Operator Name Role Phone Ronna Lopes Primary Care Provider [phone]- [phone] Allergies No known active allergies Medications clopidogreL [...] (1 - 1-dose 75+ series) 2037 [facility] Care Teams Boarding Kennel Or Cattery Operator Relationship Specialty Start Date End Date Ronna Lopes DO PCP - General Family Practice 10/02/20
--- OUTSIDE RECORDS SUMMARY | 2025-04-06 09:42 | XMS_ITS | Patient Health Record ---
Author Organization [facility] Address [address] [place] [address] Support Name Relationship Address Phone Maida Trujillo Emergency Contact [address] [place] [address] Costa Trujillo Guarantor Unknown [phone] Reason For Referral No Information Problems Problem Type SNOMED Code ICD Code Onset Dates Problem Status W/U Status Risk Notes Problem Morbid obesity (559620986) Morbid obesity (278.01) 12/13/19 Problem resolved confirmed [id number]- Problem Benign essential hypertension (2456175) Essential hypertension, benign (401.1) 12/13/19 Problem resolved confirmed [id number]- Problem Influenza immunization (48587634) Influenza immunization (V04.81) 02/07/20 Problem resolved confirmed [id number]- Problem General examination of patient (622566886) Annual exam (V70.0) 12/13/19 Problem resolved confirmed [id number]- Problem Sinus bradycardia (77407732) Sinus bradycardia (427.89) 12/13/19 Problem resolved confirmed [id number]- Problem Coronary artery disease (37932734) Coronary artery disease (414.01) 12/13/19 19 Problem resolved confirmed [id number]- Problem Transient ischemic attack (disorder) (047853537) TIA (435.9) 12/13/19 Problem resolved confirmed [id number] 11- Plan Of Treatment No Information Insurance Providers Payer Name Payer Address Payer Phone Subscriber Number Group Number Insured Name Patient Relationship to Insured Coverage Start Date Coverage End Date [place] [address] [address] [place] [address] [id number] Costa Trujillo Self - patient is the insured
[2025-04-06 09:46] VITALS: BP 157/96; PULSE 72; RESP 16; TEMP 36.5; O2SAT 96; BMI 41.1
--- NOTE | 2025-04-06 09:55 | CT_ITS ---
WS: [id number] CT scan of the head, 04/06/2025 Clinical Data: head injury 13d day ago; BARRIOS, dizzy, forgetfulness Comparison: CT head, 01/14/2021 DLP: 1101.[address] scans at [facility] use at least one of these dose optimization techniques: automated exposure control; mA and/or kV adjustment per patient size (includes targeted exams where dose is matched to clinical indication); or iterative reconstruction. Findings: The ventricular system is normal without shift. No recent infarct or hemorrhage is seen. There are no abnormal intracerebral masses. The cerebellum and brainstem are not remarkable. Bony windows of the skull and skull base show no fractures or erosions. The mastoid air cells, internal auditory canals, sella turcica, intraorbital contents, and paranasal sinuses are unremarkable. CT/CT head wo con* [id number] Impression: Negative CT scan of the head
--- NOTE | 2025-04-06 09:55 | W.ED.HA ---
HPI - Headache General: Chief Complaint: Headache Stated Complaint: Headache for 2 days dizzy Time Seen by Provider: 04/06/25 09:47 Source: patient Mode of arrival: ambulatory Limitations: no limitations History of Present Illness: Patient is an a 64-year-old male who presents to ED today with a main complaint of a headache. He states approximately 13 days ago he had a blow to the head when he was riley hogging. He states a branch came back and struck him to the frontal region of his head. Patient states he immediately got woozy headed . He got off the riley hog and waited it out and symptoms did improve. He states since then he has had intermittent headaches that do seem to respond to Tylenol. He has not had any changes in vision. No nausea/vomiting. He does report some recent forgetfullness stating he was looking for his keys the other day and they were in the ignition of his vehicle. He states today he felt a little dizzy so figured it was time to get checked out. Dizziness has improved during my exam with patient. He was ambulatory back to his room with a steady gait. States he does take Plavix. MD elicited complaint: headache Pertinent past history: recent trauma Onset (ago): day(s) Severity: mild Pain scale (0-10): 4 Quality & Timing: aching Exacerbating factors: none Relieving factors: other (tylenol) Context: recent head injury Associated symptoms: Deny chest pain, confusion, fever(s), lightheadedness, malaise, nausea, pre-syncope, syncope or vomiting Treatments prior to arrival: none Related Data Home Medications ?Medication ?Instructions ?Recorded ?Confirmed omega-3 fatty acids 1,000 mg 1,000 mg PO BID 08/23/19 03/24/25 capsule (Fish Oil Concentrate) Beet Root 1 tab PO BID 12/15/20 03/24/25 inulin 2.5 gram chewable tablet 2.5 g PO DAILY 02/12/22 03/24/25 magnesium 250 mg tablet 250 mg PO DAILY 02/12/22 03/24/25 spironolactone 25 mg tablet 12.5 mg PO BEDTIME 03/05/25 03/24/25 Previous Rx's ?Medication ?Instructions ?Recorded aspirin 81 mg tablet,delayed 81 mg PO DAILY #90 tabs 06/14/20 release Held on 03/06/25. Instructions: Resume on 03/07/25. sildenafil 50 mg tablet 50 mg PO DAILY PRN sexual activity 03/10/22 #30 tabs nitroglycerin 0.4 mg sublingual See Rx Instructions .Route 12/26/24 tablet .COMPLEX #25 tabs atorvastatin 80 mg tablet 80 mg PO DAILY #90 tabs 02/12/25 clopidogrel 75 mg tablet 75 mg PO DAILY@2100 #90 tabs 02/12/25 Held on 03/06/25. Instructions: Resume on 03/07/25. lisinopril 30 mg tablet 30 mg PO DAILY #90 tabs 02/12/25 metoprolol tartrate 25 mg tablet 12.5 mg (1/2 x 25 mg) PO BID #90 02/12/25 tabs Allergies Allergy/AdvReac Type Severity Reaction Status Date / Time amoxicillin (From Augmentin) Allergy sick to Verified 04/06/25 09:46 stomach clavulanic acid (From Allergy sick to Verified 04/06/25 09:46 Augmentin) stomach Review of Systems Const: Denies: fever(s), chills, body aches, fatigue or malaise Eyes: Denies: change in vision, blurry vision, photophobia, floaters or seeing flashes Card: Denies: chest pain, palpitations, lightheadedness, syncope or pre-syncope Resp: Denies: dyspnea GI: Denies: nausea or vomiting Musc: Denies: neck pain Neuro: Reports: headache(s) and dizziness; Denies: numbness in extremities, weakness in extremities, sensory changes, lack of coordination, difficulty walking, frequent falls, vertigo, confusion, behavioral changes, Slurred speech present, difficulty communicating thoughts or seizure-like activity PFS ED PFSH: Medical History Arthritis COVID Tick bite History of colon polyps ASHD (arteriosclerotic heart disease) TIA (transient ischemic attack) Myocardial infarction HTN (hypertension) JORGE ALBERTO (obstructive sleep apnea) Obesity Surgical History Status post colonoscopy with polypectomy (06/18/21) Internal hemorrhoids, sigmoid diverticulosis, polyp in the transverse, descending, sigmoid colon and rectum History of coronary artery stent placement History of colonoscopy 2001 S/P PTCA (percutaneous transluminal coronary angioplasty) 2018 Family History Father Stroke Brother CAD (coronary artery disease) Social History Smoking and tobacco/nicotine status: never used tobacco/nicotine Alcohol intake: never Substance/Drug Use: former Former substance use details: marijuana Physical Exam Const: COMMON NORMALS: no acute distress, patient oriented x3, no limitations, alert and well nourished GENERAL APPEARANCE: cooperative NUTRITIONAL APPEARANCE: obese morbidly obese (BMI 41.1) ORIENTATION/CONSCIOUSNESS: Yes awake, Yes oriented to person, Yes oriented to place and Yes oriented to time OTHER: was ambulatory back to his room with a steady gait-did not require any form of assistance HENMT: COMMON NORMALS: normocephalic, atraumatic, EAC's normal and TM's normal bilaterally HEAD & SCALP: normal to inspection, normocephalic and atraumatic FACE & SINUS: normal facial exam and face symmetric EXTERNAL AUDITORY CANAL: EAC's normal TYMPANIC MEMBRANE: TM's normal bilaterally Eye: COMMON NORMALS: Equal, round and reactive pupils present and EOMs intact bilaterally GENERAL EYE: appearance normal, both eyes and all related structures and normal light reflex PUPIL: Yes Equal, round and reactive pupils present DIRECT OPHTHALMOSCOPY: Yes normal light reflex OTHER: no nystagmus Neck/C-Spine: COMMON NORMALS: full ROM, no lymphadenopathy, supple and no meningeal signs Chest: COMMONS NORMALS: normal inspection of the chest Resp: COMMON NORMALS: normal respiratory effort and clear to auscultation bilaterally AUSCULTATION: clear to auscultation bilaterally Cardio: COMMON NORMALS: regular rate and regular rhythm RATE: regular rate RHYTHM: regular rhythm Extremity: GENERAL: Yes normal exam except as noted Neuro: LEONILA COMA SCALE: document GCS findings [place] coma scale eye opening: Spontaneous [place] coma scale verbal response: Orientated [place] coma scale motor response: Obey commands Leonila coma scale total score: 15 COMMON NORMALS: patient oriented x3, CN's II-XII intact bilaterally, moves all extremities, no focal motor deficits, no sensory deficits noted and gait normal SENSORIUM/ORIENTATION: Yes alert, Yes oriented to person, Yes oriented to place and Yes oriented to time MENINGEAL SIGNS: Yes no meningeal signs Skin: COMMON NORMALS: no rashes or lesions noted GENERAL SKIN EXAM: no rashes or lesions noted Course Vital Signs: Vital signs: Vital Signs Temperature 97.7 F 04/06/25 09:46 Pulse Rate 72 04/06/25 09:46 Respiratory Rate 16 04/06/25 09:46 Blood Pressure 157/96 04/06/25 09:46 Pulse Oximetry 96 04/06/25 09:46 Oxygen Delivery Me thod Room Air 04/06/25 09:46 MDM - Headache Medical Decision Making Patient is a 64-year-old male who presents to ED today with a complaint of intermittent headache, some mild forgetfulness, dizziness starting after head injury 13 days ago. Patient states his dizziness has improved here. He was ambulatory back to his room without difficulty or assistance. NIH is 0. DDx includes concussion, head contusion, migraine, TIA, CVA, among others. CT scan here is negative. At this time symptoms most consistent with mild concussion. He will be allowed discharge with recommendations to follow up with PCP if symptoms do not improve over the next 2 weeks. Return precautions discussed. Differential Diagnosis Likely migraine, subarachnoid hemorrhage, headache and postconcussion syndrome Medical Records I reviewed the patient's medical records. Lab Data Radiology Impressions Head CT 04/06/25 09:55 Impression: Negative CT scan of the head All radiology interpretation(s) finalized by discharge Discharge Plan Discharge Patient Disposition: Home Clinical Impression: Mild concussion Qualifiers: Encounter type: initial encounter Loss of consciousness presence/duration: without LOC Qualified Code(s): S06.0X0A - Concussion without loss of consciousness, initial encounter Condition: Stable Prescriptions: No Action omega-3 fatty acids [Fish Oil Concentrate] 1,000 mg capsule 1,000 mg PO BID magnesium 250 mg tablet 250 mg PO DAILY inulin 2.5 gram tablet,chewable 2.5 g PO DAILY sildenafil 50 mg tablet 50 mg PO DAILY PRN (Reason: sexual activity) Qty: 30 0RF Rx Instructions: administer 30 minutes to 4 hours before activity aspirin 81 mg tablet,delayed release (DR/EC) 81 mg PO DAILY Qty: 90 3RF nitroglycerin 0.4 mg tablet, sublingual See Rx Instructions .ROUTE .COMPLEX Qty: 25 2RF Dose Instruction: PLACE ONE TABLET UNDER TONGUE NEEDED FOR CHEST PAIN EVERY 5 MINUTES, DO NOT EXCEED 3 DOSES PER EPISODE Rx Instructions: PLACE ONE TABLET UNDER TONGUE NEEDED FOR CHEST PAIN EVERY 5 MINUTES, DO NOT EXCEED 3 DOSES PER EPISODE clopidogrel 75 mg tablet 75 mg PO DAILY@2100 Qty: 90 3RF atorvastatin 80 mg tablet 80 mg PO DAILY Qty: 90 3RF lisinopril 30 mg tablet 30 mg PO DAILY Qty: 90 3RF metoprolol tartrate 25 mg tablet 12.5 mg PO BID Qty: 90 3RF Beet Root 1 tab PO BID spironolactone 25 mg tablet 12.5 mg PO BEDTIME Discharge Orders: Discharge ED (Routine); Ordered 04/06/25 Ordered By: Nataly Casper Referrals: mEanuel Nguyen MD [Primary Care Provider, [facility]] Patient Instructions: Concussion (ED), Post Concussion Syndrome (ED), Patient Portal & Zeinab Instructions Activity Restrictions/Additional Instructions: As we discussed, CT imaging here was unremarkable. We discussed following up with your primary care provider or your neurologist for further evaluation of symptoms do not improve over the next 1 to 2 weeks. You need to return to the emergency department for onset of severe or worsening headache, worsening dizziness/trouble with ambulation, significant nausea or vomiting, changes to your vision, weakness or numbness to your face or extremities, or any other concerns you may have. Print Language: Panamanian Coding Level of Care Code ED Rum Processing Operator for Holger Munoz NIH stroke score NIHSS Level Of Consciousness - 1a: 0 Level Of Consciousness Questions - 1b: Both Correct Level Of Consciousness Commands - 1c: Both Correct Best Gaze - 2: Normal Visual [place] - 3: No Visual Loss Facial Palsy - 4: Normal Motor Arm Right - 5: No Drift Motor Arm Left - 5: No Drift Motor Leg Right - 6: No Drift Motor Leg Left - 6: No Drift Limb Ataxia - 7: Absent Sensory - 8: Normal Best Language - 9: No Aphasia Dysarthia - 10: Normal Extinction And Inattention - 11: 0 Score Total Score: 0
[2025-04-06 11:00] VITALS: BP 128/82; PULSE 71; RESP 19; TEMP 36.4; O2SAT 96
== END 2025-04-06 11:03 | disposition home or self-care (01) ==
PROVIDERS: Emergency Provider Physician Assistant; PCP Family Medicine
DX: S06.0X0A Concussion without loss of consciousness, initial encounter (principal); Z79.4 Long term (current) use of insulin; Z79.82 Long term (current) use of aspirin; Z79.02 Long term (current) use of antithrombotics/antiplatelets; Z86.73 Personal history of transient ischemic attack (TIA), and cerebral infarction without residual deficits; I10 Essential (primary) hypertension; W20.8XXA Other cause of strike by thrown, projected or falling object, initial encounter
CPT/HCPCS: 70450; 99284